=== PATIENT | female | born 1935 | race Caucasian/White ===

== ENCOUNTER 2022-02-06 16:06 | Emergency (ER) | payer MEDICARE, SELFPAY ==
--- NOTE | ~2022-02-06 | XR_ITS ---
XR hip RT 2V w AP pelvis DATE: 02/06/2022 18:12 INDICATION: Fall 2 weeks ago. Right hip pain. TECHNIQUE: AP pelvis. AP and lateral views of right hip. COMPARISON: None FINDINGS: There is diffuse osteopenia. There is degenerative disc disease at L4-5 and L5-S1. There is bony bridging across the superior aspect of the pubic symphysis. The sacroiliac joints are i ntact. No pelvic fracture or bone destruction is detected. Moderately prominent bilateral hip osteoarthritis including joint space narrowing and periarticular s purring. No fracture or dislocation, avascular necrosis or bone destruction of the right hip is detected. Iliac and femoral artery calcifications. IMPRESSION: Osteopenia Moderately prominent bilateral hip osteoarthritis No fracture or dislocation of right hip Reviewed, dictated and finalized at location B. LIANCE COUNSEL
--- NOTE | ~2022-02-06 | XR_ITS ---
XR chest 1V DATE: 02/06/2022 18:12 INDICATION: Cough, congestion, wheezing. History of hypertension, stroke TECHNIQUE: AP chest COMPARISON: None FINDINGS: Cardiomegaly. Aortic calcification. There is minimal infiltrate and/or atelectasis or scarring in the left lower lung field. No pulmonary consolidation is noted otherwise. Pulmonary vascularity appears within normal range. No significant pleural effusion or any pneumothora x is noted. There is dextroscoliosis and degenerative change of the thoracolumbar spine. Osteopenia. Status post cholecystectomy. IMPRESSION: Cardiomegaly, aortic atherosclerosis Minimal infiltrate or atelectasis at the left lung base Osteopenia Status post cholecystectomy Reviewed, dictated and finalized at location B. 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
[2022-02-06 16:17] VITALS: PULSE 91; RESP 24; TEMP 36.8; O2SAT 98
[2022-02-06 16:22] VITALS: BP 152/69
--- NOTE | 2022-02-06 16:56 | ED.EXTPRO ---
HPI - Extremity Problem General Chief complaint: Extremity Problem,Nontraumatic Stated complaint: right leg pain, fall 2 weeks ago, chest congestion Time Seen by Provider: 02/06/22 16:38 Source: patient and family Mode of arrival: ambulatory Limitations: no limitations History of Present Illness HPI Narrative: 86 years old white female brought to the emergency room by her son and daughter because of sudden onset of pain at the right hip, right thigh while trying to get inside a car. Patient had a fall 2 weeks ago, was complaining of head injury at that time, negative CT scan of the head, did not have any other injuries. Patient was doing okay, her daughter picked her up to go to get haircut and she was doing okay after finishing the haircut was trying to help her to get inside the car and started having pain at the right leg basically at the right hip and right thigh. No obvious trauma. And by the way patient been coughing and congested for the last few days. Assisting living. Related Data Allergies Allergy/AdvReac Type Severity Reaction Status Date / Time atorvastatin Allergy Itching Verified 02/06/22 18:14 chlordiazepoxide Allergy Itching Verified 02/06/22 18:14 [From Librax (with methscopolamine)] cholestyramine Allergy Itching Verified 02/06/22 18:14 clopidogrel [From Plavix] Allergy Itching Verified 02/06/22 18:14 dicyclomine Allergy Itching Verified 02/06/22 18:14 enoxaparin Allergy Headache Verified 02/06/22 18:14 fenofibrate Allergy Itching Verified 02/06/22 18:14 Latex, Natural Rubber Allergy Blister Verified 02/06/22 18:14 lidocaine Allergy Itching Verified 02/06/22 18:14 lisinopril Allergy Cough Verified 02/06/22 18:14 losartan Allergy Itching Verified 02/06/22 18:14 meloxicam Allergy Itching Verified 02/06/22 18:14 neomycin Allergy Rash Verified 02/06/22 18:14 nortriptyline [From Pamelor] Allergy Itching Verified 02/06/22 18:14 procaine Allergy Itching Verified 02/06/22 18:14 scopolamine Allergy Itching Verified 02/06/22 18:14 [From Librax (with methscopolamine)] triamcinolone Allergy Itching Verified 02/06/22 18:14 betamethasone AdvReac Itching Verified 02/06/22 18:14 Review of Systems Review of Systems: All systems reviewed & are unremarkable except as noted in HPI and below PMFSH Past Medical History Medical History Hypertension Stroke Family History Family History Father Heart attack Sibling Breast cancer Social History Social History Smoking status: Never smoker Alcohol intake: never Substance use: never Substance use type: does not use Gender identity (if verbalized by the patient): Female Spiritual care concerns: No Agree to blood products: Yes Exam Narrative: General appearance: Well-developed, well-nourished, obese, intermittent productive cough, severe hearing impairment Skin: Normal color Head: Normocephalic, nontraumatic Eyes: Clear conjunctiva ENT: Oropharynx normal, ears normal, nose normal Neck: Supple, nontender Chest and respiratory: Airway patent, no respiratory distress, no accessory muscle use Heart: Regular rate/rhythm Abdomen: Soft, nontender, no organomegaly, quiet bowel sounds Vascular: Normal peripheral pulses, normal capillary refill. Musculoskeletal: Slight limited range of motion at the right hip because of pain, mild diffuse tenderness of the right thigh anteriorly and posteriorly, no bruises, no swelling, no rash Neurologic: Alert and oriented ?3, DEPUTY PROSECUTING ATTORNEY is normal as tested, no gross motor deficit
[2022-02-06 17:17] LABS: Basophils Percent Auto 0.3 % (0.2-1.2); Eosinophils Absolute Auto 0.1 K/mm3 (0-0.3); Eosinophils Percent Auto 1.7 % (0-4.4); Hematocrit 37.7 % (37.0-47.0); Hemoglobin 12.3 g/dL (12.0-15.0); Immature Granulocyte Absolute 0.02 K/mm3 (0.00-0.031); Immature Granulocyte Percent A 0.3 % (0-0.5); Lymphocytes Absolute Auto 1.12 K/mm3 (0.9-3.2); Lymphocytes Percent Auto 14.2 % (18.3-44.2); Mean Corpuscular HGB Conc 32.6 g/dl (32-36); Mean Corpuscular Hemoglobin 28.7 pg (26-34); Mean Corpuscular Volume 88.1 fl (80-100); Monocytes Absolute Auto 0.9 K/mm3 (0.1-0.6); Monocytes Percent Auto 10.9 % (2.6-8.5); Neutrophils Absolute Auto 5.7 K/mm3 (1.3-6.7); Neutrophils Percent Auto 72.6 % (45.5-73.1); Platelet Count Result 266 k/mm3 (150-375); Red Blood Count 4.28 M/mm3 (4.2-5.4); Red Cell Distribution Width 14.1 % (11.5-14.5); White Blood Count 7.9 K/mm3 (4.5-10.0)
[2022-02-06 17:27] LABS: Potassium 3.7 mmol/L (3.4-5.0)
[2022-02-06 17:28] LABS: Alanine Aminotransferase 27 U/L (6-35); Albumin Level 4.7 g/dL (3.5-5.1); Alkaline Phosphatase 106 U/L (38-126); Anion Gap 9 mmol/L (8-16); Aspartate Amino Transferase 37 U/L (14-36); Bilirubin,Total 0.5 mg/dL (0.2-1.3); Blood Urea Nitrogen 11 mg/dL (7-17); Calcium 9.1 mg/dL (8.4-10.2); Carbon Dioxide 24 mmol/L (22-30); Chloride 104 mmol/L (98-107); Estimated CRCL calculation 69 ml/min; Estimated Glomerular Filt Rate > 60; Glucose 119 mg/dL (65-110); Sodium 137 mmol/L (137-145)
[2022-02-06 17:37] LABS: NT Pro B Type Natriuretic Pept 84 pg/mL (5-100)
[2022-02-06 17:40] LABS: Appearance Urine Clear (Clear); Bilirubin Urine Negative (Negative); Blood Urine Trace-intact (Negative); Color Urine Yellow (Yellow); Glucose Urine UA Negative (Negative); Ketones Urine Negative (Negative); Leukocyte Esterase Ur Negative LEU/UL (Negative); Nitrate Urine Negative (Negative); Protein Urine Negative (Negative); Urobilinogen Urine 0.2 mg/dL (<2.0); pH Urine 5.5 (5.0-9.0)
[2022-02-06 17:50] LABS: RBC Urine 0-2 /hpf (0-2); WBC Urine 0-3 /hpf
[2022-02-06 17:52] LABS: Add Urine Microscopic? YES
[2022-02-06 17:54] LABS: Influenza A QL RT-PCR Negative (Negative); Influenza B QL RT-PCR Negative (Negative); RSV RNA, RT-PCR Positive (Negative); SARS-CoV-2 RNA PCR Negative
[2022-02-06] MEDS: ONDANSETRON INJ 4 MG/2 ML VIAL IV PUSH (18:18)
[2022-02-06] MEDS: MORPHINE SULFATE (*CRX) 4 MG/ML INJ IV PUSH (18:19)
[2022-02-06 18:23] VITALS: PULSE 87; RESP 21
[2022-02-06] MEDS: ALBUTEROL SULFATE NEB 2.5 MG/3 ML INH 5 MG INHALATION (18:23)
[2022-02-06 18:38] LABS: Device ROOM AIR; Fractional Inspired Oxygen 21 %; HCO3 ABG 23.9 mEq/l (22.0-26.0); Modified Allen's Test Pass; Oxygen Content ABG 17.9 %vol (16.0-22.0); Oxygen Saturation ABG 99.4 % (95.0-100.0); Oxyhemoglobin 97.9 % THb (90.0-100.0); PCO2 ABG 36.7 mmHg (35.0-45.0); PO2 ABG 202.8 mmHg (80.0-100.0); Site Drawn LEFT RADIAL; Total Hemoglobin 12.7 g/dL (12.0-18.0); pH ABG 7.432 (7.350-7.450)
[2022-02-06 18:47] VITALS: PULSE 88; RESP 20
== END 2022-02-06 20:15 ==
PROVIDERS: Emergency Provider Emergency Medicine
DX: M79.18 Myalgia, other site (principal); J22 Unspecified acute lower respiratory infection; B97.4 Respiratory syncytial virus as the cause of diseases classified elsewhere; Z86.73 Personal history of transient ischemic attack (TIA), and cerebral infarction without residual deficits; Z20.822 Contact with and (suspected) exposure to COVID-19; I10 Essential (primary) hypertension; Z79.82 Long term (current) use of aspirin
CPT/HCPCS: 36415; 36600; 71045; 73502; 80053; 81001; 82805; 83880; 85025; 87040; 87637; 94640; 96374; 96375; 99284; J2270; J2405

== ENCOUNTER 2022-02-16 00:57 | Inpatient (IN) | payer MEDICARE, SELFPAY ==
[2022-02-16] VITALS (30 sets, daily range): BP systolic 131–198; BP diastolic 61–78; PULSE 91–110; RESP 17–26; TEMP 36.6–37.6; O2SAT 90–99; BMI 33.0
--- NOTE | ~2022-02-16 | XR_ITS ---
EXAMINATION: XR chest 1V portable DATE: 02/16/2022 02:06 INDICATION: Cough. TECHNIQUE: A single frontal view of the chest was obtained. COMPARISON: Chest single view 02/06/2022, CT abdomen and pelvis 02/16/2022 FINDINGS: There is a diffuse interstitial pattern in the lungs. No pleural effusion or pneumothorax. Cardiomegaly is noted. There are surgical clips in the abdomen. IMPRESSION: 1. Worsened interstitial pattern in the lungs, likely mild pulmonary edema. 2. Cardiomegaly. Reviewed, dictated and finalized at location A. RANCE ASSOCIATE
--- NOTE | ~2022-02-16 | CT_ITS ---
EXAMINATION: CT abdomen pelvis wo con DATE: 02/16/2022 02:45 INDICATION: Mid and left abdominal pain. TECHNIQUE: Computed tomography (CT) of the abdomen and pelvis was performed without intravenous contr ast. Automated exposure control and iterative reconstruction technique were employed. The dose-length product was 835.82 mGy-cm. COMPARISON: None. FINDINGS: The visualized portions of the lung bases demonstrate mild atelectasis and mild chronic trcaie g disease. Calcified left lower lobe nodules are consistent with old granulomatous disease. No pleura l effusion. Cardiomegaly is noted. No pericardial effusion. There is a moderate-sized sliding hiatal hernia. Calcifications in the liver and spleen are consistent with old granulomatous disease. There a re changes of cholecystectomy. The pancreas, adrenal glands, and kidneys are normal. There is no urol ithiasis. There is an umbilical hernia containing fat. There is diverticulosis of the colon without e vidence of diverticulitis. The appendix is not visualized. There are no dilated loops of bowel. There are no pathologically enlarged lymph nodes. There is no free intraperitoneal fluid. There are widesp read arterial calcifications with at least moderate stenosis of celiac axis origin and at least mild stenosis of superior mesenteric artery origin. There is moderate lumbar spondylosis. There are bridgi ng endplate osteophytes at multiple levels in the thoracic spine, consistent with diffuse idiopathic skeletal hyperostosis (DISH). IMPRESSION: 1. Moderate-sized sliding hiatal hernia. 2. Umbilical hernia containing fat. Reviewed, dictated and finalized at location A. E HAND
--- NOTE | ~2022-02-16 | XR_ITS ---
EXAMINATION: XR chest 1V portable Exam Date/Time: 02/18/2022 14:00 CASE MANAGERS HISTORY: Shortness of breath Comparison: 02/16/2022. RESULT: Lines, tubes, and devices: None. Lungs and pleura: Increased linear and subsegmental opacities in the left lung base. Slightly increa sed left angle blunting. Stable diffuse reticular opacities. Cardiomediastinal silhouette: Stable. Other: No acute osseous or upper abdominal finding. IMPRESSION: Worsening left basilar atelectasis/consolidation. Small left pleural effusion. Reviewed, dictated and finalized at location K. MANAGERS
--- NOTE | ~2022-02-16 | XR_ITS ---
EXAMINATION: XR abdomen/kub 1V DATE: 02/19/2022 17:32 INDICATION: Abdominal pain TECHNIQUE: A supine view of the abdomen on 2 radiographs was obtained. COMPARISON: CT dated 02/16/2022 FINDINGS: Moderate amount of gas and stool scattered throughout the colon. No dilated loops of gas-filled bowel to suggest obstruction. Cholecystectomy clips in right upper quadrant. Additional surgical clips in the left upper quadrant. Airspace opacities at bilateral lung bases which could represent atelectasis or pneumonia. Moderate degenerative skeletal changes in the spine and bilateral hip and sacroiliac j oints. IMPRESSION: 1. Moderate amount of colonic stool which could be seen with constipation. No bowel obstruction. 2. Bibasilar lung disease which could represent atelectasis or pneumonia. Reviewed, dictated and finalized at location A. SIFICATION PLANT OPERATOR IMPRESSION: 1. Moderate amount of colonic stool which could be seen with constipation. No b owel obstruction. 2. Bibasilar lung disease which could represent atelectasis or pneumonia.
--- NOTE | 2022-02-16 01:03 | ECG_ITS ---
Measurements Intervals [place] Rate: 104 P: 79 OR: 156 QRS: 35 QRSD: 83 T: 79 QT: 352 QTc: 465 Interpretive Statements SINUS TACHYCARDIA WITH OCCASIONAL SUPRAVENTRICULAR PREMATURE COMPLEXES NONSPECIFIC T-WAVE ABNORMALITY ABNORMAL RHYTHM ECG NO PREVIOUS ECG AVAILABLE FOR COMPARISON Electronically Signed On 02-16-2022 6:23:37 PRINCIPAL NETWORK ENGINEER by Felix Gao M.D.
--- NOTE | 2022-02-16 01:08 | ED.GENADULT ---
HPI - General Adult General Chief complaint: Shortness of Breath/Dyspnea Stated complaint: SOB, CP Source: RN notes reviewed History of Present Illness HPI narrative: Patient presents emergency department from home via EMS for chest pain shortness of breath. Patient states that she has been having symptoms since yesterday. States has been having a cough this been productive of yellow sputum. She has been associate with shortness of breath also states she has been having chest pain over the left lower chest. Pain is increased with movement as well as coughing states she went to her PCP today was diagnosed with pneumonia was started on a Z-Conrado which she has taken 1 dose of as it was just this morning that she was diagnosed. She denies any fevers or chills nausea or vomiting per family's present the patient's not been eating well patient does have a history of dementia Related Data Allergies Allergy/AdvReac Type Severity Reaction Status Date / Time atorvastatin Allergy Itching Verified 02/16/22 01:29 chlordiazepoxide Allergy Itching Verified 02/16/22 01:29 [From Librax (with methscopolamine)] cholestyramine Allergy Itching Verified 02/16/22 01:29 clopidogrel [From Plavix] Allergy Itching Verified 02/16/22 01:29 dicyclomine Allergy Itching Verified 02/16/22 01:29 enoxaparin Allergy Headache Verified 02/16/22 01:29 fenofibrate Allergy Itching Verified 02/16/22 01:29 Latex, Natural Rubber Allergy Blister Verified 02/16/22 01:29 lidocaine Allergy Itching Verified 02/16/22 01:29 lisinopril Allergy Cough Verified 02/16/22 01:29 losartan Allergy Itching Verified 02/16/22 01:29 meloxicam Allergy Itching Verified 02/16/22 01:29 neomycin Allergy Rash Verified 02/16/22 01:29 nortriptyline [From Pamelor] Allergy Itching Verified 02/16/22 01:29 procaine Allergy Itching Verified 02/16/22 01:29 scopolamine Allergy Itching Verified 02/16/22 01:29 [From Librax (with methscopolamine)] triamcinolone Allergy Itching Verified 02/16/22 01:29 betamethasone AdvReac Itching Verified 02/16/22 01:29 Review of Systems Review of Systems: Gen.: Denies fevers or chills ENT: Denies congestion Respiratory: Reports shortness of breath and cough CV: Reports left-sided chest pain GI: Denies abdominal pain nausea, emesis or diarrhea Musculoskeletal: Denies back pain or muscle pain Neuro: Denies numbness, tingling, weakness or focal weakness Skin: Denies rash Except as documented, all other systems reviewed and negative [facility] Past Medical History Medical History (Updated 02/16/22 @ 06:48 by Sina Andrade DO) Allergic rhinitis 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 Dementia Fracture of left shoulder (~2012) Hypertension Migraine Mixed hyperlipidemia Prurigo nodularis Surgical History Surgical History (Updated 02/16/22 @ 05:37 by Olga Lidia Askew DO) History of bladder suspension procedure History of Agustin fundoplication (~2005) History of sinus surgery History of total hysterectomy with bilateral salpingo-oophorectomy (BSO) Hx of cholecystectomy Status post cataract extraction of both eyes with insertion of intraocular lens (~2013) Family History Family History Father Heart attack Sibling Breast cancer Social History Social History Smoking status: Never smoker Alcohol intake: never Substance use: never Substance use type: does not use Gender identity (if verbalized by the patient): Female Spiritual care concerns: No Agree to blood products: Yes Exam Narrative: APPEARANCE: No acute distress, nontoxic, resting in bed EYES: EOMI HEENT: Normocephalic, atraumatic, OMM RESPIRATORY: No respiratory distress crackles in the left lung base, no wheezing CARDIOVASCULAR: Regular rate and rhythm without murmurs rubs or gallops. ABDOMINAL: Sof
[2022-02-16 01:26] LABS: Basophils Percent Auto 0.3 % (0.2-1.2); Eosinophils Percent Auto 0.1 % (0-4.4); Hematocrit 36.2 % (37.0-47.0); Immature Granulocyte Absolute 0.12 K/mm3 (0.00-0.031); Immature Granulocyte Percent A 0.9 % (0-0.5); Lymphocytes Percent Auto 7.4 % (18.3-44.2); Mean Corpuscular HGB Conc 33.1 g/dl (32-36); Mean Corpuscular Hemoglobin 28.5 pg (26-34); Mean Platelet Volume 9.7 fl (7.4-10.4); Neutrophils Absolute Auto 11.5 K/mm3 (1.3-6.7); Neutrophils Percent Auto 84.3 % (45.5-73.1); Platelet Count Result 438 k/mm3 (150-375); Red Blood Count 4.21 M/mm3 (4.2-5.4); Red Cell Distribution Width 13.7 % (11.5-14.5); White Blood Count 13.6 K/mm3 (4.5-10.0)
[2022-02-16 01:35] LABS: Alanine Aminotransferase 36 U/L (6-35); Albumin Level 4.5 g/dL (3.5-5.1); Alkaline Phosphatase 98 U/L (38-126); Anion Gap 10 mmol/L (8-16); Aspartate Amino Transferase 36 U/L (14-36); Bilirubin,Total 0.6 mg/dL (0.2-1.3); Blood Urea Nitrogen 14 mg/dL (7-17); Calcium 9.3 mg/dL (8.4-10.2); Carbon Dioxide 25 mmol/L (22-30); Chloride 105 mmol/L (98-107); Estimated Glomerular Filt Rate > 60; Glucose 143 mg/dL (65-110); Potassium 3.4 mmol/L (3.4-5.0); Sodium 140 mmol/L (137-145)
[2022-02-16 01:37] LABS: INR 1.1; Partial Thromboplastin Time 29.2 SECONDS (22.3-36.8); Prothrombin Time 13.7 Seconds (11.1-14.7)
[2022-02-16 01:47] LABS: NT Pro B Type Natriuretic Pept 234 pg/mL (5-100); Troponin I < 0.012 ng/mL (0.000-0.034)
[2022-02-16 02:01] LABS: Influenza A QL RT-PCR Negative (Negative); Influenza B QL RT-PCR Negative (Negative); RSV RNA, RT-PCR Positive (Negative); SARS-CoV-2 RNA PCR Negative
--- NOTE | 2022-02-16 03:23 | PC.NURSE ---
Report received from KERRY Ramos. Assumed care of patient at this time.
[2022-02-16] MEDS: ALBUTEROL SULFATE NEB 2.5 MG/3 ML INH 5 MG INHALATION ×4 (03:45→20:21)
[2022-02-16 04:21] LABS: Lactic Acid Reflex 1.1 mmol/L (0.7-2.0)
[2022-02-16] MEDS: MORPHINE SULFATE (*CRX) 2 MG/ML INJ 1 MG IV PUSH (04:57)
--- NOTE | 2022-02-16 05:25 | PM.IMHP ---
H&P: HPI History of Present Illness Date/Time: 02/16/22 05:25 Chief Complaint: chest pain and abdominal pain Narrative: 87-year-old female past medical history of essential hypertension, allergic rhinitis, hyperlipidemia and recent diagnosis of RSV who presented to the ER from assisted living due to complaints of chest pain and abdominal pain. The patient indicates her left chest was hurting but when palpated the patient's pain seeing some be more in the left upper abdomen. Although the patient does cry out when staff touches her abdomen she also grabs at staff and shoves them away if they touch her chest or neck. Although the patient is alert oriented to place name and name of the current president she initially stated the wrong month and then corrected to the right month when she was told that she stated the wrong month but thought the year was 2001. Dust the patient's daughter provided the majority of the history. The family felt the patient was having more shortness of breath starting yesterday. She had also complained of chest pain over the left lower chest that was increased with movement. She stated that the pain was worse with every little bump. She has also been having some cough. She was evaluated by her primary care physician today was diagnosed with pneumonia and started on a Z-Conrado. She has taken 1 dose of the azithromycin before coming in. She has not had any fevers or chills nausea or vomiting. She has had overall poor oral intake for the last week. When the patient was brought to the ER on the she was having pain in her right hip leg and thigh. On that day she had 3 below out diarrheal stools. The daughter reports that is not completely unusual for the patient to have episodes of diarrhea and bowel incontinence but the episodes have decreased since the patient moved to assisted living. The patient actually has not had any bowel movements for the last couple of days. She has chronic bladder incontinence. The patient is writhing around in bed and stating that she is done. Besides the 1 dose of antibiotic she received on the she had not been on a antibiotics previously. 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 Dementia Fracture of left shoulder (~2012) Hypertension Migraine Mixed hyperlipidemia Prurigo nodularis Surgical History Surgical History (Updated 02/16/22 @ 05:37 by Olga Lidia Askew DO) History of bladder suspension procedure History of Agustin fundoplication (~2005) History of sinus surgery History of total hysterectomy with bilateral salpingo-oophorectomy (BSO) Hx of cholecystectomy Status post cataract extraction of both eyes with insertion of intraocular lens (~2013) Family History Family History Father Heart attack Sibling Breast cancer Social History Social History Smoking status: Never smoker Alcohol intake: never Substance use: never Substance use type: does not use Gender identity (if verbalized by the patient): Female Spiritual care concerns: No Agree to blood products: Yes Meds Home Medications and Allergies Home Medications Medication Instructions Recorded Confirmed Type albuterol sulfate 90 mcg/actuation 1 inh inhalation QID PRN Allergy 03/07/19 Rx aerosol inhaler Symptoms #1 g amlodipine 5 mg tablet 5 mg PO DAILY #30 tabs 03/07/19 Rx aspirin 81 mg chewable tablet 81 mg PO DAILY #100 tabs 03/07/19 02/22/19 Rx cetirizine 10 mg capsule (Zyrtec) 10 mg PO BID allergies #60 caps 03/07/19 Rx cholecalciferol (vitamin D3) 50 50 mcg PO DAILY #30 caps 03/07/19 Rx mcg (2,000 unit) capsule f
[2022-02-16] MEDS: MORPHINE SULFATE (*CRX) 4 MG/ML INJ IV PUSH ×3 (06:33→20:26)
--- NOTE | 2022-02-16 07:54 | PC.NURSE ---
clear liquid breakfast tray ordered
--- NOTE | 2022-02-16 08:12 | PC.NURSE ---
Family states they will run home to obtain a list of home medications.
[2022-02-16] MEDS: SODIUM CHLORIDE 0.9% IV 1,000 ML 999 ML IV CONT (08:47)
[2022-02-16 09:04] LABS: Troponin I 0.019 ng/mL (0.000-0.034)
[2022-02-16 09:05] LABS: D Dimer 1.31 ug/mL (<0.48)
[2022-02-16] MEDS: IPRATROPIUM BR 0.02% INH SOLN 0.5 MG/2.5 ML VIAL INHALATION ×3 (09:50→20:21)
[2022-02-16] MEDS: SODIUM CHLORIDE 0.9% IV 1,000 ML 100 ML IV CONT ×2 (10:25→15:56)
[2022-02-16 11:30] LABS: Troponin I 0.023 ng/mL (0.000-0.034)
--- NOTE | 2022-02-16 11:50 | PC.NURSE ---
Clear liquid diet lunch tray ordered
--- NOTE | 2022-02-16 15:20 | ADMGEN ---
This patient, Rosa Angela, was admitted to Medical Room 344-01. Patient/family oriented to hospital policies and general routines including ID bracelet, bed and alarms, visiting hours, pain management, procedures, bathroom and other care routines, personal items, smoking policy, room service/diet, and visiting hours. Information on how to activate the Rapid Response Team has been discussed. Patient/Family are encouraged to report perceived risks to care and to ask questions if they do not understand what they are told or what they should do.
--- NOTE | 2022-02-16 17:59 | PM.IMPN ---
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 She has been afebrile. Blood cultures are pending. Sepsis is due to pneumonia with possible pancolitis. Granted the patient's left lower chest and abdominal pain could be due to pneumonia but given the patient's abdominal distension is CT findings concerning for pancolitis this is also a concern. Patient has been placed on Zosyn for both GI and coverage for pneumonia. Will give 1 L fluid bolus and will place patient on maintenance fluids at 100 mL an hour given her decreased oral intake and dry mucous membranes. Family does report that the patient has lower extremity edema and given her tachycardia and the location of her pain certainly pulmonary embolism as within trauma possibility for differential. Will check a D-dimer. We would of the in a CTA of the chest however the patient thinks that she has a allergy to IV contrast although it is not on her allergy list. While I was in the ER the patient's oxygen saturations were dropping into the 90s but would come back up to the mid 90s. I was worried with giving the patient larger dose of morphine than what was given in the ER 1 mg. However 1 mg of morphine did nothing for the patient. I did order for 4 mg of morphine and to monitor for response. I encouraged the patient's daughter to discuss code status with her other siblings given the patient's advanced age. The bleed the patient is acting reminds me of someone who may be developing terminal restlessness. The patient does not having marked lactic acidosis that was suggest ischemic colitis pancolitis but is still within the differential. Overall patient has a guarded prognosis. Hold off on SCDs given the patient's new lower extremity swelling that the daughter reported. Will wait D-dimer results. I would like to avoid therapeutic Lovenox without a definitive reason to provide therapeutic Lovenox in someone of this patient's age group. 02/16/2022 interval history: currently patient is in pain and poor historian still complains of pain and abdominal but denies any nausea or vomiting fever or chills patient CT scan of the abdomen did not show any significant pathology attribute to her pain however patient does have a large sliding hiatal hernia and abdomen is protruband, patient's family is quite concerned about the patient I spoke with the patient daughters and son and give them update, will continue the present management with Zosyn and continue to monitor further recommendation to follow. Patient has been admitted as observation status. Subjective Date/time seen: 02/16/22 17:59 ?chest pain and abdominal pain HPI-Narrative: 87-year-old female past medical history of essential hypertension, allergic rhinitis, hyperlipidemia and recent diagnosis of RSV who presented to the ER from assisted living due to complaints of chest pain and abdominal pain.? The patient indicates her left chest was hurting but when palpated the patient's pain seeing some be more in the left upper abdomen.? Although the patient does cry out when staff touches her abdomen she also grabs at staff and sh
[2022-02-17] VITALS (18 sets, daily range): BP systolic 130–180; BP diastolic 63–70; PULSE 77–177; RESP 20–22; TEMP 36.2–36.7; O2SAT 92–99
[2022-02-17] MEDS: MORPHINE SULFATE (*CRX) 4 MG/ML INJ IV PUSH ×3 (00:17→19:41)
[2022-02-17] MEDS: ALBUTEROL SULFATE NEB 2.5 MG/3 ML INH 5 MG INHALATION ×4 (02:11→20:09)
[2022-02-17] MEDS: IPRATROPIUM BR 0.02% INH SOLN 0.5 MG/2.5 ML VIAL INHALATION ×4 (02:11→20:09)
[2022-02-17] MEDS: SODIUM CHLORIDE 0.9% IV 1,000 ML 100 ML IV CONT (02:35)
[2022-02-17 05:55] LABS: Basophils Absolute Auto 0.1 K/mm3 (0.0-0.1); Basophils Percent Auto 0.3 % (0.2-1.2); Eosinophils Absolute Auto 0.1 K/mm3 (0-0.3); Eosinophils Percent Auto 0.7 % (0-4.4); Hematocrit 34.4 % (37.0-47.0); Hemoglobin 10.9 g/dL (12.0-15.0); Immature Granulocyte Percent A 0.6 % (0-0.5); Lymphocytes Absolute Auto 1.32 K/mm3 (0.9-3.2); Mean Corpuscular HGB Conc 31.7 g/dl (32-36); Mean Corpuscular Hemoglobin 27.9 pg (26-34); Mean Corpuscular Volume 88.2 fl (80-100); Mean Platelet Volume 9.7 fl (7.4-10.4); Monocytes Percent Auto 5.7 % (2.6-8.5); Neutrophils Percent Auto 84.7 % (45.5-73.1); Platelet Count Result 369 k/mm3 (150-375); Red Cell Distribution Width 13.7 % (11.5-14.5); White Blood Count 16.5 K/mm3 (4.5-10.0)
[2022-02-17 06:20] LABS: Alanine Aminotransferase 30 U/L (6-35); Albumin Level 3.6 g/dL (3.5-5.1); Alkaline Phosphatase 79 U/L (38-126); Anion Gap 7 mmol/L (8-16); Aspartate Amino Transferase 38 U/L (14-36); Bilirubin,Total 0.9 mg/dL (0.2-1.3); Blood Urea Nitrogen 6 mg/dL (7-17); Calcium 8.3 mg/dL (8.4-10.2); Carbon Dioxide 26 mmol/L (22-30); Chloride 103 mmol/L (98-107); Estimated CRCL calculation 83 ml/min; Estimated Glomerular Filt Rate > 60; Glucose 125 mg/dL (65-110); Potassium 3.3 mmol/L (3.4-5.0); Sodium 136 mmol/L (137-145)
[2022-02-17] MEDS: POTASSIUM CHLORIDE 20 MEQ PACKET (FOR LIQUID) 40 MEQ PO (09:49)
[2022-02-17] MEDS: PANTOPRAZOLE 40 MG TABLET PO (09:51)
[2022-02-17] MEDS: LORATADINE 10 MG TABLET PO (09:51)
[2022-02-17] MEDS: amLODIPine BESYLATE 5 MG TABLET 10 MG PO (09:51)
[2022-02-17] MEDS: CHOLECALCIFEROL 1,000 UNITS TABLET 2000 UNITS PO (09:51)
[2022-02-17] MEDS: THERAPEUTIC MULTIVITAMINS/MINERALS TAB (*BKC) 1 TABLET PO (09:51)
[2022-02-17] MEDS: ASPIRIN 81 MG CHEWABLE TABLET PO (09:51)
[2022-02-17] MEDS: TICAGRELOR 90 MG TABLET PO ×2 (09:52→21:16)
--- NOTE | 2022-02-17 16:40 | PM.IMPN ---
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 She has been afebrile. Blood cultures are pending. Sepsis is due to pneumonia with possible pancolitis. Granted the patient's left lower chest and abdominal pain could be due to pneumonia but given the patient's abdominal distension is CT findings concerning for pancolitis this is also a concern. Patient has been placed on Zosyn for both GI and coverage for pneumonia. Will give 1 L fluid bolus and will place patient on maintenance fluids at 100 mL an hour given her decreased oral intake and dry mucous membranes. Family does report that the patient has lower extremity edema and given her tachycardia and the location of her pain certainly pulmonary embolism as within trauma possibility for differential. Will check a D-dimer. We would of the in a CTA of the chest however the patient thinks that she has a allergy to IV contrast although it is not on her allergy list. While I was in the ER the patient's oxygen saturations were dropping into the 90s but would come back up to the mid 90s. I was worried with giving the patient larger dose of morphine than what was given in the ER 1 mg. However 1 mg of morphine did nothing for the patient. I did order for 4 mg of morphine and to monitor for response. I encouraged the patient's daughter to discuss code status with her other siblings given the patient's advanced age. The bleed the patient is acting reminds me of someone who may be developing terminal restlessness. The patient does not having marked lactic acidosis that was suggest ischemic colitis pancolitis but is still within the differential. Overall patient has a guarded prognosis. Hold off on SCDs given the patient's new lower extremity swelling that the daughter reported. Will wait D-dimer results. I would like to avoid therapeutic Lovenox without a definitive reason to provide therapeutic Lovenox in someone of this patient's age group. 02/17/2022 interval history: currently patient is in pain and poor historian still complains of pain and abdominal but denies any nausea or vomiting fever or chills patient CT scan of the abdomen did not show any significant pathology attribute to her pain however patient does have a large sliding hiatal hernia and abdomen is protruband, a today patient's son is present in room, patient states she has not had a bowel more in several days, will Colace and MiraLax, patient blood pressure is running high currently patient is taking amlodipine 10 mg q.day will add hydrochlorothiazide 25 mg q.day and monitor, will continue the present management with Zosyn and continue to monitor further recommendation to follow. Patient has been admitted as observation status. Subjective Date/time seen: 02/17/22 16:40 02/17/2022 interval history: currently patient is in pain and poor historian still complains of pain and abdominal but denies any nausea or vomiting fever or chills patient CT scan of the abdomen did not show any significant pathology attribute to her pain however patient does have a large sliding hiatal hernia and abdomen is protruband, a tod
[2022-02-17] MEDS: hydroCHLOROthiazide 12.5 MG CAPSULE PO (18:05)
[2022-02-17] MEDS: ENOXAPARIN 40 MG/0.4 ML SYRINGE SUB-Q (18:05)
--- NOTE | 2022-02-17 20:39 | ECG_ITS ---
Measurements Intervals [place] Rate: 159 P: [place]: 0 QRS: 26 QRSD: 86 T: 0 QT: 213 QTc: 346 Interpretive Statements ATRIAL FIBRILLATION WITH RAPID VENTRICULAR RESPONSE NONSPECIFIC ST & T-WAVE ABNORMALITY ABNORMAL RHYTHM ECG COMPARED TO ECG 02/16/2022 01:05:36 ATRIAL FIBRILLATION NOW PRESENT Electronically Signed On 02-18-2022 13:17:48 WELDING EQUIPMENT SALES REPRESENTATIVE by Cruz Fontanez M.D.
--- NOTE | 2022-02-17 20:52 | PCRCNOTE ---
called a rapid response do to increased HR after neb
[2022-02-17] MEDS: dilTIAZem HCl INJ 25 MG/5 ML VIAL 10 MG IV PUSH (20:54)
[2022-02-17] MEDS: MELATONIN 5 MG TABLET 10 MG PO (21:15)
[2022-02-17] MEDS: MONTELUKAST SODIUM 10 MG TABLET PO (21:16)
[2022-02-17] MEDS: dilTIAZem HCL 30 MG TABLET PO (21:16)
[2022-02-17] MEDS: DOCUSATE SODIUM 100 MG CAPSULE PO (21:16)
[2022-02-17] MEDS: SIMVASTATIN 20 MG TABLET PO (21:16)
[2022-02-17] MEDS: FUROSEMIDE INJ 40 MG/4 ML VIAL IV PUSH (22:23)
[2022-02-17] MEDS: dilTIAZem HCl INJ 25 MG/5 ML VIAL 20 MG IV PUSH (22:23)
--- NOTE | 2022-02-17 23:39 | PC.NURSE ---
Heart rate remains elevated Dr White aware and ordered pt to be transferred to IMU. Pt son Manuel called and notified of transfer and he is aware of HR issues.
[2022-02-18] VITALS (24 sets, daily range): BP systolic 111–166; BP diastolic 53–96; PULSE 78–164; RESP 16–24; TEMP 36.4–36.9; O2SAT 92–97
--- NOTE | 2022-02-18 | ECHO_ITS ---
Patient Info Name: Rosa Angela Age: 87 years : 1935 Gender: Female Ht: 62 in Wt: 180 lbs BSA: 1.92 m2 HR: 98 bpm BP: 117 / 82 mmHg Technical Quality: Fair Exam Date: 02/18/2022 2:07 PM Exam Location: [facility] Patient Status: Inpatient Admit Date: 02/16/2022 Staff Ordering Physician: Nora White MD Senior Microstrategy Developer: Jenny Arellano RCS Attending Provider: Compa Lawson MD Referring Physician: Cindy ARORA; Exam Type: CA echo doppler color flow Study Info Indications - AFIB Complete two-dimensional, color flow and Doppler transthoracic echocardiogram is performed. Summary 1. Complete two-dimensional, color flow and Doppler transthoracic echocardiogram is performed. 2. Left ventricular chamber dimension is normal. 3. Left ventricular systolic function is normal, estimated at 65-70%. 4. The left ventricular diastolic function is grade I diastolic dysfunction. 5. E/e' 16 is elevated. 6. Left atrial chamber dimension is mildly enlarged. 7. There is moderate aortic valve sclerosis. 8. There is mild aortic valve stenosis with a peak velocity of 251 cm/s, mean gradient of 17 mmHg, and aortic valve area of 1.5 cm2. 9. The mitral valve has moderately calcified annulus. Left Ventricle E/e' 16 is elevated. Left ventricular chamber dimension is normal. Left ventricular systolic function is normal, estimated at 65-70%. The left ventricular diastolic function is grade I diastolic dysfunction. Right Ventricle Right ventricular chamber dimension is normal. Right ventricular systolic function is normal. Left Atria Left atrial chamber dimension is mildly enlarged. Right Atria Right atrial chamber dimension is normal. Aortic Valve The aortic valve is probable trileaflet. There is moderate aortic valve sclerosis. There is mild aortic valve stenosis with a peak velocity of 251 cm/s, mean gradient of 17 mmHg, and aortic valve area of 1.5 cm2. There is no aortic valve regurgitation. Pulmonic Valve There is no pulmonic regurgitation. Mitral Valve The mitral valve has moderately calcified annulus. There is no mitral valve stenosis. There is no mitral valve regurgitation. Tricuspid Valve There is no tricuspid valve regurgitation. Pericardium/Pleural There is no pericardial effusion. Inferior Vena Cava Normal inferior vena cava with >50% collapse upon inspiration consistent with normal right atrial pressure, 5 mmHg. Aorta The aortic root size at the sinus of Valsalva is normal. Left Ventricular Outflow Tract Name Value Normal LVOT 2D LVOT Diameter 2.0 cm LVOT Doppler LVOT Peak Gradient 6 mmHg LVOT Mean Gradient 4 mmHg LVOT VTI 21 cm LVOT VTI/AV VTI Ratio 0.5 LVOT Stroke Volume 70 ml LVOT CO 18.2 l/min LVOT CI 9.5 l/min/m2 Pulmonic Valve Name
[2022-02-18] MEDS: MORPHINE SULFATE (*CRX) 4 MG/ML INJ IV PUSH (00:01)
--- NOTE | 2022-02-18 00:23 | PC.NURSE ---
Patient was transferred to room 200. Report called to Ritika PAYNE. Patient left unit at 0015 with all belongings.
[2022-02-18] MEDS: dilTIAZem 100 MG/100 ML 100 MG/100 ML BAG IV CONT ×2 (00:35→11:14)
--- NOTE | 2022-02-18 01:07 | PC.NURSE ---
This patient, Rosa Angela, was received from [facility] on 02/18/22 at 0008. Patient/family oriented to unit policies and routines
--- NOTE | 2022-02-18 01:09 | PCRCNOTE ---
neb held do to rapid heart rate
--- NOTE | 2022-02-18 05:02 | P.PNCROSS_ITS ---
Event Note Event Note Event Note: Event Note: ?rapid response was called to the patient's room after her heart rate was 150- 100 and 60s ?objective:? Blood pressure 160/90, heart rate 160, ?subjective:? No chest pain ?general:? Patient laying in bed in no acute distress ?HEENT:? Atraumatic normocephalic PERRLA EOM intact no JVD neck supple ?respiratory: clear to auscultation bilaterally, no wheezes rhonchi or crackles ?cardiovascular irregular rate and rhythm, tachycardia. ?abdomen:? Is distended, soft nontender no hepatosplenomegaly. ?extremities:? No edema ?central nervous system:? Awake alert move all 4 limbs , purposely ?skin: intact ?ASSESSMENT AND PLAN: 1- atrial fibrillation with rapid ventricular response:? Transferred to IMU will start diltiazem drip echocardiogram in a.m. cardiology consult in a.m. will start anticoagulation This dictation may have been done utilizing a voice recognition system.? Attempts have been made to correct errors. However, there may be uncorrected grammatical, spelling, and recognition errors present. Report Initialized date/time:? Nora White MD? 02/18/22 / [id number] Electronically signed by:?? Nora White MD? 02/18/22 [id number]
[2022-02-18] MEDS: ENOXAPARIN 80 MG/0.8 ML SYRINGE SUB-Q (06:25)
[2022-02-18] MEDS: IPRATROPIUM BR 0.02% INH SOLN 0.5 MG/2.5 ML VIAL INHALATION ×3 (08:16→22:10)
[2022-02-18] MEDS: DOCUSATE SODIUM 100 MG CAPSULE PO ×2 (09:04→20:57)
[2022-02-18] MEDS: CHOLECALCIFEROL 1,000 UNITS TABLET 2000 UNITS PO (09:04)
[2022-02-18] MEDS: LORATADINE 10 MG TABLET PO (09:04)
[2022-02-18] MEDS: amLODIPine BESYLATE 5 MG TABLET 10 MG PO (09:04)
[2022-02-18] MEDS: ASPIRIN 81 MG CHEWABLE TABLET PO (09:04)
[2022-02-18] MEDS: hydroCHLOROthiazide 12.5 MG CAPSULE PO ×2 (09:04→17:19)
[2022-02-18] MEDS: ENOXAPARIN 40 MG/0.4 ML SYRINGE SUB-Q (09:06)
[2022-02-18] MEDS: PANTOPRAZOLE 40 MG TABLET PO (09:07)
[2022-02-18] MEDS: TICAGRELOR 90 MG TABLET PO ×2 (09:07→20:58)
[2022-02-18] MEDS: THERAPEUTIC MULTIVITAMINS/MINERALS TAB (*BKC) 1 TABLET PO (09:07)
--- NOTE | 2022-02-18 13:46 | ECG_ITS ---
Measurements Intervals [place] Rate: 86 P: 64 ME: 165 QRS: 2 QRSD: 86 T: 122 QT: 290 QTc: 347 Interpretive Statements SINUS RHYTHM WITH OCCASIONAL VENTRICULAR PREMATURE COMPLEXES NONSPECIFIC T-WAVE ABNORMALITY COMPARED TO ECG 02/17/2022 20:42:33 SINUS RHYTHM has been restored Electronically Signed On 02-18-2022 15:49:20 SUPERVISOR [employer]ANT by Jackie Rust M.D.
--- NOTE | 2022-02-18 13:48 | PM.IMPN ---
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 She has been afebrile. Blood cultures are pending. Sepsis is due to pneumonia with possible pancolitis. Granted the patient's left lower chest and abdominal pain could be due to pneumonia but given the patient's abdominal distension is CT findings concerning for pancolitis this is also a concern. Patient has been placed on Zosyn for both GI and coverage for pneumonia. Will give 1 L fluid bolus and will place patient on maintenance fluids at 100 mL an hour given her decreased oral intake and dry mucous membranes. Family does report that the patient has lower extremity edema and given her tachycardia and the location of her pain certainly pulmonary embolism as within trauma possibility for differential. Will check a D-dimer. We would of the in a CTA of the chest however the patient thinks that she has a allergy to IV contrast although it is not on her allergy list. While I was in the ER the patient's oxygen saturations were dropping into the 90s but would come back up to the mid 90s. I was worried with giving the patient larger dose of morphine than what was given in the ER 1 mg. However 1 mg of morphine did nothing for the patient. I did order for 4 mg of morphine and to monitor for response. I encouraged the patient's daughter to discuss code status with her other siblings given the patient's advanced age. The bleed the patient is acting reminds me of someone who may be developing terminal restlessness. The patient does not having marked lactic acidosis that was suggest ischemic colitis pancolitis but is still within the differential. Overall patient has a guarded prognosis. Hold off on SCDs given the patient's new lower extremity swelling that the daughter reported. Will wait D-dimer results. I would like to avoid therapeutic Lovenox without a definitive reason to provide therapeutic Lovenox in someone of this patient's age group. 02/17/2022 interval history: currently patient is in pain and poor historian still complains of pain and abdominal but denies any nausea or vomiting fever or chills patient CT scan of the abdomen did not show any significant pathology attribute to her pain however patient does have a large sliding hiatal hernia and abdomen is protruband, a today patient's son is present in room, patient states she has not had a bowel more in several days, will Colace and MiraLax, patient blood pressure is running high currently patient is taking amlodipine 10 mg q.day will add hydrochlorothiazide 25 mg q.day and monitor, will continue the present management with Zosyn and continue to monitor further recommendation to follow. 02/18/2022: Sepsis RSV pneumonia Pancolitis AFib with RVR 02/17/2022 converted back to sinus rhythm already Hypoxic respiratory failure needing nasal cannula oxygen supplementation Constipation Large sliding hiatal hernia Hypertension History of stroke 2019 Switched to oral Cardizem on Lovenox subQ also on aspirin and Brilinta if need chronic anticoagulation will need to stop 1 of the antiplatelet. Hyperlipidemia on simvastatin Rechec
[2022-02-18 14:32] LABS: Basophils Percent Auto 0.2 % (0.2-1.2); Eosinophils Absolute Auto 0.1 K/mm3 (0-0.3); Eosinophils Percent Auto 0.3 % (0-4.4); Hematocrit 34.3 % (37.0-47.0); Hemoglobin 11.4 g/dL (12.0-15.0); Immature Granulocyte Absolute 0.31 K/mm3 (0.00-0.031); Immature Granulocyte Percent A 1.7 % (0-0.5); Lymphocytes Absolute Auto 1.06 K/mm3 (0.9-3.2); Lymphocytes Percent Auto 5.9 % (18.3-44.2); Mean Corpuscular HGB Conc 33.2 g/dl (32-36); Mean Corpuscular Hemoglobin 27.9 pg (26-34); Mean Corpuscular Volume 84.1 fl (80-100); Mean Platelet Volume 9.7 fl (7.4-10.4); Monocytes Absolute Auto 1.1 K/mm3 (0.1-0.6); Monocytes Percent Auto 6.2 % (2.6-8.5); Neutrophils Absolute Auto 15.5 K/mm3 (1.3-6.7); Neutrophils Percent Auto 85.7 % (45.5-73.1); Platelet Count Result 411 k/mm3 (150-375); Red Blood Count 4.08 M/mm3 (4.2-5.4); Red Cell Distribution Width 13.4 % (11.5-14.5)
[2022-02-18 15:08] LABS: Alanine Aminotransferase 34 U/L (6-35); Albumin Level 3.9 g/dL (3.5-5.1); Alkaline Phosphatase 84 U/L (38-126); Anion Gap 10 mmol/L (8-16); Aspartate Amino Transferase 43 U/L (14-36); Bilirubin,Total 1.1 mg/dL (0.2-1.3); Blood Urea Nitrogen 9 mg/dL (7-17); Calcium 8.6 mg/dL (8.4-10.2); Carbon Dioxide 27 mmol/L (22-30); Chloride 96 mmol/L (98-107); Estimated CRCL calculation 68 ml/min; Estimated Glomerular Filt Rate > 60; Glucose 182 mg/dL (65-110); Magnesium 1.9 mg/dL (1.6-2.3); Potassium 2.7 mmol/L (3.4-5.0); Sodium 133 mmol/L (137-145)
[2022-02-18] MEDS: POTASSIUM CHLORIDE 20 MEQ TABLET 40 MEQ PO ×2 (17:19→20:58)
[2022-02-18] MEDS: MELATONIN 5 MG TABLET 10 MG PO (20:57)
[2022-02-18] MEDS: SIMVASTATIN 20 MG TABLET PO (20:57)
[2022-02-18] MEDS: MONTELUKAST SODIUM 10 MG TABLET PO (20:58)
[2022-02-19] VITALS (21 sets, daily range): BP systolic 131–175; BP diastolic 45–80; PULSE 76–106; RESP 12–22; TEMP 36.3–37.2; O2SAT 93–97
[2022-02-19] MEDS: MORPHINE SULFATE (*CRX) 4 MG/ML INJ IV PUSH ×3 (00:33→15:23)
[2022-02-19 03:55] LABS: Basophils Percent Auto 0.2 % (0.2-1.2); Eosinophils Absolute Auto 0.2 K/mm3 (0-0.3); Eosinophils Percent Auto 0.9 % (0-4.4); Hematocrit 34.1 % (37.0-47.0); Hemoglobin 11.4 g/dL (12.0-15.0); Immature Granulocyte Absolute 0.09 K/mm3 (0.00-0.031); Immature Granulocyte Percent A 0.5 % (0-0.5); Lymphocytes Absolute Auto 1.41 K/mm3 (0.9-3.2); Lymphocytes Percent Auto 8.2 % (18.3-44.2); Mean Corpuscular HGB Conc 33.4 g/dl (32-36); Mean Corpuscular Hemoglobin 28.1 pg (26-34); Mean Corpuscular Volume 84.2 fl (80-100); Mean Platelet Volume 9.8 fl (7.4-10.4); Monocytes Absolute Auto 1.2 K/mm3 (0.1-0.6); Monocytes Percent Auto 7.2 % (2.6-8.5); Neutrophils Absolute Auto 14.2 K/mm3 (1.3-6.7); Platelet Count Result 432 k/mm3 (150-375); Red Blood Count 4.05 M/mm3 (4.2-5.4); Red Cell Distribution Width 13.5 % (11.5-14.5); White Blood Count 17.2 K/mm3 (4.5-10.0)
[2022-02-19 04:44] LABS: Alanine Aminotransferase 38 U/L (6-35); Albumin Level 3.9 g/dL (3.5-5.1); Alkaline Phosphatase 85 U/L (38-126); Anion Gap 9 mmol/L (8-16); Aspartate Amino Transferase 42 U/L (14-36); Bilirubin,Total 1.2 mg/dL (0.2-1.3); Blood Urea Nitrogen 8 mg/dL (7-17); Calcium 8.9 mg/dL (8.4-10.2); Carbon Dioxide 27 mmol/L (22-30); Chloride 99 mmol/L (98-107); Estimated CRCL calculation 68 ml/min; Estimated Glomerular Filt Rate > 60; Glucose 139 mg/dL (65-110); Magnesium 2.1 mg/dL (1.6-2.3); Potassium 3.2 mmol/L (3.4-5.0); Sodium 135 mmol/L (137-145)
[2022-02-19] MEDS: ENOXAPARIN 80 MG/0.8 ML SYRINGE SUB-Q (05:36)
[2022-02-19] MEDS: IPRATROPIUM BR 0.02% INH SOLN 0.5 MG/2.5 ML VIAL INHALATION ×3 (09:22→20:29)
[2022-02-19] MEDS: CHOLECALCIFEROL 1,000 UNITS TABLET 2000 UNITS PO (09:29)
[2022-02-19] MEDS: hydroCHLOROthiazide 12.5 MG CAPSULE PO ×2 (09:29→17:28)
[2022-02-19] MEDS: ASPIRIN 81 MG CHEWABLE TABLET PO (09:29)
[2022-02-19] MEDS: DOCUSATE SODIUM 100 MG CAPSULE PO ×2 (09:29→20:44)
[2022-02-19] MEDS: amLODIPine BESYLATE 5 MG TABLET 10 MG PO (09:30)
[2022-02-19] MEDS: THERAPEUTIC MULTIVITAMINS/MINERALS TAB (*BKC) 1 TABLET PO (09:30)
[2022-02-19] MEDS: PANTOPRAZOLE 40 MG TABLET PO (09:30)
[2022-02-19] MEDS: TICAGRELOR 90 MG TABLET PO ×2 (09:30→20:44)
[2022-02-19] MEDS: POTASSIUM CHLORIDE 20 MEQ TABLET 40 MEQ PO (09:33)
[2022-02-19] MEDS: LORATADINE 10 MG TABLET PO (09:33)
[2022-02-19] MEDS: SENNOSIDES 8.6 MG TABLET PO (11:30)
--- NOTE | 2022-02-19 16:17 | PM.IMPN ---
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 on cardizem oral now. off cardizem gtt. Hypoxic respiratory failure needing nasal cannula oxygen supplementation Constipation no bm since past 10 days: will give suppository. on colace and senna already. check xry kub. low back pain: will get xray. morphine iv prn. tylneol prn. Large sliding hiatal hernia Hypertension History of stroke 2019 Switched to oral Cardizem on Lovenox subQ also on aspirin and Brilinta if need chronic anticoagulation will need to stop 1 of the antiplatelet. Hyperlipidemia on simvastatin Subjective Date/time seen: 02/19/22 16:17 Interval history: Overnight events noted. Went into AFib with RVR. Currently on Cardizem drip rate control looks sinus with PAC on telemetry still have shortness of breath on exertion 02/19/2022: no overnight events. patient reports in low back pain. has not had bowel movement since 10 days. Review of Systems Review of Systems: All systems reviewed & are unremarkable except as noted in HPI and below Exam Narrative: moderately obese not in acute distress Patient is comfortable, NAD HEENT: eyes are clear and none icteric LUNGS: Coarse breath sound mild end-expiratory wheezes HEART: RR S1S2 telemetry sinus with PACs ABD: BS+, Soft and nontender Lower extremities: no edema SKIN: nonjaundiced Neuro: grossly intact. Objective Data Vital Signs Vital Signs: Vital Signs - 24 hr 02/18/22 18:00 02/18/22 20:00 02/18/22 20:00 Temperature 97.8 F Pulse Rate 88 100 89 Respiratory Rate 18 Blood Pressure 113/96 H Pulse Oximetry 95 Oxygen Delivery Oxygen Flow Rate Fraction of Inspired Oxygen 02/18/22 20:00 02/18/22 21:54 02/19/22 00:00 Temperature 99.0 F Pulse Rate 89 82 83 Respiratory Rate 18 18 Blood Pressure 140/58 L Pulse Oximetry 95 95 Oxygen Delivery Nasal Cannula Oxygen Flow Rate 2 Fraction of Inspired Oxygen 02/19/22 00:00 02/19/22 00:00 02/18/22 22:00 Temperature Pulse Rate 100 100 86 Respiratory Rate 18 20 Blood Pressure Pulse Oximetry 95 92 Oxygen Delivery Nasal Cannula Nasal Cannula Oxygen Flow Rate 2 2 Fraction of Inspired Oxygen 02/18/22 22:10 02/18/22 22:23 02/19/22 02:00 Temperature Pulse Rate 86 90 78 Respiratory Rate 18 18 Blood Pressure Pulse Oximetry Oxygen Delivery Oxygen Flow Rate Fraction of Inspired Oxygen 02/19/22 04:00 02/19/22 04:00 02/19/22 04:00 Temperature 99.0 F Pulse Rate 83 83 87 Respiratory Rate 18 20 Blood Pressure 175/68 H Pulse Oximetry 95 95 Oxygen Delivery Nasal Cannula Oxygen Flow Rate 2 Fraction of Inspired Oxygen 02/19/22 05:44 02/19/22 08:00 02/19/22 09:20 Temperature 97.9 F Pulse Rate 84 103 H 89 Respiratory Rate 22 H 18 Blood Pressure 149/61 H Pulse Oximetry 97 Oxygen Delivery Oxygen Flow Rate Fraction of Inspired Oxygen 02/19/22 09:28 02/19/22 09:29 02/19/22 08:00 Temperature Pulse Rate 100 81 Respiratory Rate 18 Blood Pressure Pulse Oximetry 95
[2022-02-19] MEDS: BISACODYL 10 MG SUPPOSITORY RECTAL (17:28)
[2022-02-19 20:43] LABS: Glucose Point of Care 162 mg/dl (65-105)
[2022-02-19] MEDS: MONTELUKAST SODIUM 10 MG TABLET PO (20:44)
[2022-02-19] MEDS: SIMVASTATIN 20 MG TABLET PO (20:45)
[2022-02-19] MEDS: MELATONIN 5 MG TABLET 10 MG PO (20:45)
--- NOTE | 2022-02-19 21:05 | PC.NURSE ---
This patient, Rosa Angela, was transferred to [ [id number]] on 02/19/22 at 2106. Personal belongings sent with patient. Report given to [Laurie cobb ]. Appropriate documentation sent with patient.
[2022-02-19] MEDS: MORPHINE SULFATE (*CRX) 4 MG/ML INJ 2 MG IV PUSH (23:45)
[2022-02-20] VITALS (15 sets, daily range): BP systolic 146–160; BP diastolic 56–93; PULSE 77–150; RESP 16–20; TEMP 36.5–37.1; O2SAT 94–97
[2022-02-20] MEDS: ENOXAPARIN 80 MG/0.8 ML SYRINGE SUB-Q (05:51)
[2022-02-20] MEDS: IPRATROPIUM BR 0.02% INH SOLN 0.5 MG/2.5 ML VIAL INHALATION ×3 (08:22→21:40)
[2022-02-20 08:44] LABS: Basophils Percent Auto 0.3 % (0.2-1.2); Eosinophils Absolute Auto 0.2 K/mm3 (0-0.3); Hematocrit 36.6 % (37.0-47.0); Immature Granulocyte Percent A 0.6 % (0-0.5); Lymphocytes Absolute Auto 0.95 K/mm3 (0.9-3.2); Lymphocytes Percent Auto 6.2 % (18.3-44.2); Mean Corpuscular HGB Conc 32.8 g/dl (32-36); Mean Corpuscular Hemoglobin 27.6 pg (26-34); Mean Corpuscular Volume 84.3 fl (80-100); Mean Platelet Volume 9.6 fl (7.4-10.4); Monocytes Absolute Auto 1.2 K/mm3 (0.1-0.6); Neutrophils Absolute Auto 12.9 K/mm3 (1.3-6.7); Neutrophils Percent Auto 83.9 % (45.5-73.1); Platelet Count Result 481 k/mm3 (150-375); Red Blood Count 4.34 M/mm3 (4.2-5.4); Red Cell Distribution Width 13.5 % (11.5-14.5); White Blood Count 15.4 K/mm3 (4.5-10.0)
[2022-02-20 08:50] LABS: Alanine Aminotransferase 43 U/L (6-35); Albumin Level 4.1 g/dL (3.5-5.1); Alkaline Phosphatase 92 U/L (38-126); Anion Gap 8 mmol/L (8-16); Aspartate Amino Transferase 44 U/L (14-36); Bilirubin,Total 1.2 mg/dL (0.2-1.3); Blood Urea Nitrogen 9 mg/dL (7-17); Carbon Dioxide 28 mmol/L (22-30); Chloride 99 mmol/L (98-107); Estimated CRCL calculation 68 ml/min; Estimated Glomerular Filt Rate > 60; Glucose 151 mg/dL (65-110); Magnesium 2.1 mg/dL (1.6-2.3); Potassium 3.4 mmol/L (3.4-5.0); Sodium 135 mmol/L (137-145)
[2022-02-20] MEDS: hydroCHLOROthiazide 12.5 MG CAPSULE PO ×2 (09:45→17:01)
[2022-02-20] MEDS: TICAGRELOR 90 MG TABLET PO ×2 (09:46→20:39)
[2022-02-20] MEDS: THERAPEUTIC MULTIVITAMINS/MINERALS TAB (*BKC) 1 TABLET PO (09:46)
[2022-02-20] MEDS: SENNOSIDES 8.6 MG TABLET PO (09:46)
[2022-02-20] MEDS: DOCUSATE SODIUM 100 MG CAPSULE PO ×2 (09:46→20:40)
[2022-02-20] MEDS: PANTOPRAZOLE 40 MG TABLET PO (09:46)
[2022-02-20] MEDS: amLODIPine BESYLATE 5 MG TABLET 10 MG PO (09:46)
[2022-02-20] MEDS: ASPIRIN 81 MG CHEWABLE TABLET PO (09:46)
[2022-02-20] MEDS: CHOLECALCIFEROL 1,000 UNITS TABLET 2000 UNITS PO (09:46)
[2022-02-20] MEDS: LORATADINE 10 MG TABLET PO (09:47)
[2022-02-20] MEDS: BISACODYL 10 MG SUPPOSITORY RECTAL (16:13)
--- NOTE | 2022-02-20 16:56 | PM.IMPN ---
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 on cardizem oral now. off cardizem gtt. Hypoxic respiratory failure needing nasal cannula oxygen supplementation Constipation no bm since past 10 days: will give suppository. on colace and senna already. X-ray with moderate amount of stool. Suppository did not help. Will given an enema. low back pain: will get xray. morphine iv prn. tylneol prn. Large sliding hiatal hernia Hypertension History of stroke 2019 Switched to oral Cardizem on Lovenox subQ also on aspirin and Brilinta if need chronic anticoagulation will need to stop 1 of the antiplatelet. Since remain on sinus rhythm deferred anticoagulation Hyperlipidemia on simvastatin PT OT lives in assisted living facility await PT OT evaluation and recommendation for discharge planning Subjective Date/time seen: 02/20/22 16:56 Interval history: Overnight events noted. Went into AFib with RVR. Currently on Cardizem drip rate control looks sinus with PAC on telemetry still have shortness of breath on exertion 02/19/2022: no overnight events. patient reports in low back pain. has not had bowel movement since 10 days. 02/20/22: No overnight events. Still has not had bowel movement. Getting stronger. No fever chills. Remains in sinus rhythm. Review of Systems Review of Systems: All systems reviewed & are unremarkable except as noted in HPI and below Exam Narrative: moderately obese not in acute distress Patient is comfortable, NAD HEENT: eyes are clear and none icteric LUNGS: Coarse breath sound mild end-expiratory wheezes HEART: RR S1S2 telemetry sinus with PACs ABD: BS+, Soft and nontender Lower extremities: no edema SKIN: nonjaundiced Neuro: grossly intact. Objective Data Vital Signs Vital Signs: Vital Signs - 24 hr 02/19/22 18:00 02/19/22 20:29 02/19/22 20:40 Temperature Pulse Rate 95 90 87 Respiratory Rate 18 18 Blood Pressure Pulse Oximetry Oxygen Delivery Oxygen Flow Rate Fraction of Inspired Oxygen 02/19/22 20:40 02/19/22 20:00 02/19/22 20:00 Temperature 97.4 F L Pulse Rate 93 92 Respiratory Rate 16 Blood Pressure 143/58 H Pulse Oximetry 94 94 Oxygen Delivery Nasal Cannula Oxygen Flow Rate 2 Fraction of Inspired Oxygen 02/19/22 20:00 02/19/22 23:59 02/20/22 00:00 Temperature 98.3 F Pulse Rate 92 93 95 Respiratory Rate 18 20 Blood Pressure 145/61 H Pulse Oximetry 94 95 Oxygen Delivery Nasal Cannula Oxygen Flow Rate 2 Fraction of Inspired Oxygen 28 02/20/22 02:20 02/20/22 02:30 02/20/22 04:00 Temperature Pulse Rate 80 77 81 Respiratory Rate 18 18 Blood Pressure Pulse Oximetry Oxygen Delivery Oxygen Flow Rate Fraction of Inspired Oxygen 02/20/22 04:00 02/20/22 08:23 02/20/22 08:23 Temperature 98.7 F Pulse Rate 90 86 86 Respiratory Rate 18 18 Blood Pressure 152/56 H Pulse Oximetry 97 94 Oxygen Delivery Nasal Cannula Oxygen Flow Rate 2 Fraction of Inspired Oxygen 02/20/22 09:15 02/20/22 13:50 02/20/22
[2022-02-20] MEDS: MELATONIN 5 MG TABLET 10 MG PO (20:40)
[2022-02-20] MEDS: SIMVASTATIN 20 MG TABLET PO (20:40)
[2022-02-20] MEDS: MONTELUKAST SODIUM 10 MG TABLET PO (20:40)
[2022-02-21] VITALS (30 sets, daily range): BP systolic 130–159; BP diastolic 55–117; PULSE 61–159; RESP 16–32; TEMP 36.3–37; O2SAT 91–96
[2022-02-21] MEDS: ENOXAPARIN 80 MG/0.8 ML SYRINGE SUB-Q ×3 (00:14→20:11)
--- NOTE | 2022-02-21 01:01 | ECG_ITS ---
Measurements Intervals [place] Rate: 162 P: [place]: 0 QRS: 18 QRSD: 86 T: 120 QT: 216 QTc: 355 Interpretive Statements ATRIAL FIBRILLATION WITH RAPID VENTRICULAR RESPONSE NONSPECIFIC ST & T-WAVE ABNORMALITY COMPARED TO ECG 02/18/2022 14:24:49 ATRIAL FIBRILLATION NOW PRESENT Electronically Signed On 02-21-2022 8:42:11 CONSUMER LOAN UNDERWRITER by Jackie Rust M.D.
[2022-02-21] MEDS: METOPROLOL TARTRATE INJ 5 MG/5 ML VIAL 2.5 MG IV PUSH (02:24)
[2022-02-21] MEDS: IPRATROPIUM BR 0.02% INH SOLN 0.5 MG/2.5 ML VIAL INHALATION ×2 (03:35→22:10)
[2022-02-21] MEDS: DIGOXIN INJ 250 MCG/ML 2 ML AMP (*BKC) 125 MCG IV PUSH (03:51)
[2022-02-21] MEDS: ACETAMINOPHEN 325 MG TABLET 650 MG PO (05:03)
--- NOTE | 2022-02-21 05:54 | PC.NURSE ---
Called daughter Hannah Matthews regarding transfer to IMU,reson,her condition now,ansewred all her questions. She will be in later to see her mother.
[2022-02-21 06:13] LABS: Basophils Absolute Auto 0.1 K/mm3 (0.0-0.1); Basophils Percent Auto 0.4 % (0.2-1.2); Eosinophils Absolute Auto 0.3 K/mm3 (0-0.3); Eosinophils Percent Auto 1.8 % (0-4.4); Hematocrit 37.2 % (37.0-47.0); Hemoglobin 12.2 g/dL (12.0-15.0); Immature Granulocyte Absolute 0.11 K/mm3 (0.00-0.031); Immature Granulocyte Percent A 0.8 % (0-0.5); Lymphocytes Absolute Auto 1.25 K/mm3 (0.9-3.2); Lymphocytes Percent Auto 8.7 % (18.3-44.2); Mean Corpuscular HGB Conc 32.8 g/dl (32-36); Mean Corpuscular Hemoglobin 27.6 pg (26-34); Mean Corpuscular Volume 84.2 fl (80-100); Mean Platelet Volume 9.9 fl (7.4-10.4); Monocytes Absolute Auto 1.2 K/mm3 (0.1-0.6); Monocytes Percent Auto 8.2 % (2.6-8.5); Neutrophils Absolute Auto 11.6 K/mm3 (1.3-6.7); Neutrophils Percent Auto 80.1 % (45.5-73.1); Platelet Count Result 514 k/mm3 (150-375); Red Blood Count 4.42 M/mm3 (4.2-5.4); Red Cell Distribution Width 13.5 % (11.5-14.5); White Blood Count 14.4 K/mm3 (4.5-10.0)
[2022-02-21 06:23] LABS: Alanine Aminotransferase 49 U/L (6-35); Alkaline Phosphatase 89 U/L (38-126); Anion Gap 8 mmol/L (8-16); Aspartate Amino Transferase 52 U/L (14-36); Bilirubin,Total 0.9 mg/dL (0.2-1.3); Blood Urea Nitrogen 11 mg/dL (7-17); Calcium 9.1 mg/dL (8.4-10.2); Carbon Dioxide 28 mmol/L (22-30); Chloride 100 mmol/L (98-107); Estimated CRCL calculation 58 ml/min; Estimated Glomerular Filt Rate > 60; Glucose 150 mg/dL (65-110); Magnesium 2.2 mg/dL (1.6-2.3); Potassium 3.3 mmol/L (3.4-5.0); Sodium 136 mmol/L (137-145)
--- NOTE | 2022-02-21 06:55 | PC.NURSE ---
This patient, Rosa Angela, was received from [[id number]] on 02/21/22 at 0656. Patient/family oriented to unit policies and routines
[2022-02-21] MEDS: dilTIAZem 100 MG/100 ML 100 MG/100 ML BAG IV CONT (07:15)
[2022-02-21] MEDS: CHOLECALCIFEROL 1,000 UNITS TABLET 2000 UNITS PO (08:20)
[2022-02-21] MEDS: DOCUSATE SODIUM 100 MG CAPSULE PO ×2 (08:20→20:12)
[2022-02-21] MEDS: ASPIRIN 81 MG CHEWABLE TABLET PO (08:20)
[2022-02-21] MEDS: PANTOPRAZOLE 40 MG TABLET PO (08:21)
[2022-02-21] MEDS: LORATADINE 10 MG TABLET PO (08:21)
[2022-02-21] MEDS: THERAPEUTIC MULTIVITAMINS/MINERALS TAB (*BKC) 1 TABLET PO (08:21)
[2022-02-21] MEDS: TICAGRELOR 90 MG TABLET PO (08:21)
[2022-02-21] MEDS: POTASSIUM CHLORIDE 20 MEQ TABLET 40 MEQ PO (08:42)
[2022-02-21] MEDS: hydroCHLOROthiazide 12.5 MG CAPSULE PO ×2 (08:42→18:00)
[2022-02-21] MEDS: amLODIPine BESYLATE 5 MG TABLET 10 MG PO (09:54)
--- NOTE | 2022-02-21 10:56 | PM.CNCAR ---
Assessment and Plan Assessment and plan (1) Paroxysmal atrial fibrillation: Code(s): I48.0 - Paroxysmal atrial fibrillation Status: Acute Assessment and Plan: Elderly lady who is had 2 episodes of AFib RVR this admission. Had recurrence despite treatment with p.o. Cardizem. Currently in sinus rhythm back on a Cardizem drip. May have been provoked by her acute illness, but she does have risk factors for recurrent AFib. May need long-term tx. Start sotalol 80 mg b.i.d. to prevent recurrence Follow QT interval with daily EKGs. Stay on telemetry, preferably in IMU, while loading with sotalol. Change IV cardizem back to po (DC amlodipine since both Ca+ blockers). Recommend anticoagulation. Currently on Lovenox. Recommend change to Eliquis 5 mg b.i.d. prior to discharge. Will need to discontinue 1 of her anti-platelet agents, at least, and I would recommend discontinuing Brilinta Reviewed above with the patient's daughter; also always concerned about bleeding risk particular with falls (2) Community acquired pneumonia: Qualifiers: Laterality: unspecified laterality Qualified Code(s): J18.9 - Pneumonia, unspecified organism Code(s): J18.9 - Pneumonia, unspecified organism Status: Acute Assessment and Plan: On antibiotics for community-acquired pneumonia (3) RSV (respiratory syncytial virus infection): Code(s): B33.8 - Other specified viral diseases Status: Acute Assessment and Plan: Diagnosed with RSV earlier this month. (4) History of stroke: Code(s): Z86.73 - Personal history of transient ischemic attack (TIA), and cerebral infarction without residual deficits Status: Acute Assessment and Plan: Stroke in 2019, treated with aspirin and Brilinta. Reasonable to stop Brilinta at this point I believe an add Eliquis. May need to stop aspirin to if she has bleeding issues. (5) History of fall: Code(s): Z91.81 - History of falling Status: Acute Assessment and Plan: Walks with a walker, has had a couple falls. Fall precautions (6) Aortic valve stenosis, nonrheumatic: Code(s): I35.0 - Nonrheumatic aortic (valve) stenosis Status: Acute Assessment and Plan: Mild aortic stenosis noted. Recommend follow-up echo in 1-2 years. (7) Hypertension: Code(s): I10 - Essential (primary) hypertension Status: Acute Assessment and Plan: History of hypertension, blood pressure running mildly elevated on this admission. Outpatient follow-up History of Present Illness History of Present Illness Consult date/time: 02/21/22 10:56 Reason For Visit: RSV/Community Acquired Pneumonia/Pleurisy/Colitis Narrative: Rosa Angela is an 87 y.o. female whom I was asked to see at the request of Dr. Lawson for my advice and opinion regarding her atrial fibrillation RVR, in consultation. She has a history of hypertension, hyperlipidemia, stroke in 2019 treated by [facility] with aspirin and Brilinta, dementia, and she is taking aspirin and Brilinta. The patient presented to the emergency room with myalgias and was RSV positive on 02/16/2022. She again presented to the emergency room on 02/16/2022 with chest pain and shortness of breath, admitted with sepsis, pancolitis and community acquired (+RSV?) pneumonia. She had an episode AFib RVR and 02/17/2022 and converted to sinus rhythm on a Cardizem drip, and maintained on oral Cardizem 120 mg daily and anticoagulated with Lovenox 80 mg daily. Her echocardiogram showed EF 65-70% with mild aortic stenosis. She went back and AFib RVR with heart rates in the 140s to 150s around 1:00 a.m. this morning she was given 125 mcg of digoxin IV push, metoprolol 2.5 mg once, and started back on a Cardizem drip at 5 milligrams/hour. She has converted to sinus rhythm. The patient is not a good is historian; some of the history was obtained from stefani
[2022-02-21 11:13] LABS: Glucose Point of Care 147 mg/dl (65-105)
[2022-02-21 12:17] LABS: Glucose Point of Care 127 mg/dl (65-105)
--- NOTE | 2022-02-21 15:18 | PM.IMPN ---
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 on cardizem oral now. off cardizem gtt. Converted back to AFib with RVR 02/20/2022 back on Cardizem drip. Cardiology consulted. Plan for sotalol load. Anticoagulation required as chads Vasc score is high. Will stop her Brilinta since she is going to be on long-term anticoagulation now. Hypoxic respiratory failure needing nasal cannula oxygen supplementation Constipation no bm since past 10 days: will give suppository. on colace and senna already. X-ray with moderate amount of stool. Suppository did not help. Will given an enema. This has not been given yet. Discussed with nursing staff to administer 1 today. low back pain: will get xray. morphine iv prn. tylneol prn. Large sliding hiatal hernia Hypertension History of stroke 2019 Hyperlipidemia on simvastatin Disposition: PT OT lives in assisted living facility await PT OT evaluation and recommendation for discharge planning Code status full code Subjective Date/time seen: 02/21/22 15:18 Interval history: Overnight events noted. Went into AFib with RVR. Currently on Cardizem drip rate control looks sinus with PAC on telemetry still have shortness of breath on exertion 02/19/2022: no overnight events. patient reports in low back pain. has not had bowel movement since 10 days. 02/20/22: No overnight events. Still has not had bowel movement. Getting stronger. No fever chills. Remains in sinus rhythm. 02/21/2022: Overnight events noted went into AFib with RVR again. Started on Cardizem drip with conversion back to sinus rhythm this a.m.. Still constipated son had any bowel movement. Shortness of breath exertion. Bedside discussed with. Remains afebrile. Review of Systems Review of Systems: All systems reviewed & are unremarkable except as noted in HPI and below Exam Narrative: moderately obese not in acute distress Patient is comfortable, NAD HEENT: eyes are clear and none icteric LUNGS: Coarse breath sound mild end-expiratory wheezes HEART: RR S1S2 telemetry sinus with PACs ABD: BS+, Soft and nontender Lower extremities: no edema SKIN: nonjaundiced Neuro: grossly intact. Objective Data Vital Signs Vital Signs: Vital Signs - 24 hr 02/20/22 16:00 02/20/22 21:40 02/20/22 22:00 Temperature 97.8 F Pulse Rate 85 78 89 Respiratory Rate 16 20 Blood Pressure 160/75 H Pulse Oximetry 96 Oxygen Delivery Oxygen Flow Rate Fraction of Inspired Oxygen 02/20/22 20:00 02/21/22 02:24 02/20/22 20:00 Temperature Pulse Rate 83 150 H 150 H Respiratory Rate 20 Blood Pressure Pulse Oximetry 96 Oxygen Delivery Nasal Cannula Oxygen Flow Rate 2 Fraction of Inspired Oxygen 2 02/21/22 03:51 02/21/22 02:30 02/21/22 00:00 Temperature Pulse Rate 150 H 156 H 83 Respiratory Rate 20 Blood Pressure 130/55 L Pulse Oximetry 94 Oxygen Delivery Oxygen Flow Rate Fraction of Inspired Oxygen 02/21/22 04:00 02/21/22 03:35 02/20/22 21:40 Temperature Pulse Rate 143 H 143 H 86
[2022-02-21] MEDS: SOTALOL HCL 80 MG TABLET PO ×2 (15:26→23:47)
[2022-02-21 16:58] LABS: Glucose Point of Care 149 mg/dl (65-105)
[2022-02-21] MEDS: SIMVASTATIN 20 MG TABLET PO (20:11)
[2022-02-21] MEDS: MONTELUKAST SODIUM 10 MG TABLET PO (20:11)
[2022-02-21] MEDS: MELATONIN 5 MG TABLET 10 MG PO (20:20)
[2022-02-21] MEDS: WATER FOR IRRIGATION, STERILE 1,000 ML BOTTLE 1000 ML (21:07)
[2022-02-22] VITALS (22 sets, daily range): BP systolic 126–150; BP diastolic 45–93; PULSE 56–78; RESP 14–26; TEMP 35.9–37.1; O2SAT 93–100
[2022-02-22] MEDS: IPRATROPIUM BR 0.02% INH SOLN 0.5 MG/2.5 ML VIAL INHALATION ×3 (03:33→21:10)
[2022-02-22 05:38] LABS: Basophils Absolute Auto 0.1 K/mm3 (0.0-0.1); Basophils Percent Auto 0.6 % (0.2-1.2); Eosinophils Absolute Auto 0.4 K/mm3 (0-0.3); Eosinophils Percent Auto 3.2 % (0-4.4); Hematocrit 36.5 % (37.0-47.0); Immature Granulocyte Absolute 0.16 K/mm3 (0.00-0.031); Immature Granulocyte Percent A 1.4 % (0-0.5); Lymphocytes Absolute Auto 1.36 K/mm3 (0.9-3.2); Lymphocytes Percent Auto 11.7 % (18.3-44.2); Mean Corpuscular HGB Conc 32.9 g/dl (32-36); Mean Corpuscular Hemoglobin 28.3 pg (26-34); Mean Corpuscular Volume 86.1 fl (80-100); Mean Platelet Volume 9.8 fl (7.4-10.4); Monocytes Absolute Auto 0.9 K/mm3 (0.1-0.6); Monocytes Percent Auto 7.7 % (2.6-8.5); Neutrophils Absolute Auto 8.8 K/mm3 (1.3-6.7); Neutrophils Percent Auto 75.4 % (45.5-73.1); Platelet Count Result 519 k/mm3 (150-375); Red Blood Count 4.24 M/mm3 (4.2-5.4); Red Cell Distribution Width 13.5 % (11.5-14.5); White Blood Count 11.6 K/mm3 (4.5-10.0)
[2022-02-22 05:50] LABS: Alanine Aminotransferase 46 U/L (6-35); Albumin Level 3.9 g/dL (3.5-5.1); Alkaline Phosphatase 82 U/L (38-126); Anion Gap 8 mmol/L (8-16); Aspartate Amino Transferase 40 U/L (14-36); Bilirubin,Total 0.7 mg/dL (0.2-1.3); Blood Urea Nitrogen 16 mg/dL (7-17); Carbon Dioxide 26 mmol/L (22-30); Chloride 103 mmol/L (98-107); Estimated CRCL calculation 58 ml/min; Estimated Glomerular Filt Rate > 60; Glucose 134 mg/dL (65-110); Magnesium 2.2 mg/dL (1.6-2.3); Potassium 3.6 mmol/L (3.4-5.0); Sodium 137 mmol/L (137-145)
--- NOTE | 2022-02-22 08:00 | ECG_ITS ---
Measurements Intervals [place] Rate: 63 P: 82 UT: 174 QRS: 1 QRSD: 88 T: 108 QT: 472 QTc: 486 Interpretive Statements SINUS RHYTHM NONSPECIFIC T-WAVE ABNORMALITY PROLONGED QT INTERVAL COMPARED TO ECG 02/21/2022 01:11:56 SINUS RHYTHM NOW PRESENT PROLONGED QT INTERVAL NOW PRESENT Electronically Signed On 02-22-2022 14:48:09 [employer] by Jackie Rust M.D.
[2022-02-22] MEDS: CHOLECALCIFEROL 1,000 UNITS TABLET 2000 UNITS PO (08:27)
[2022-02-22] MEDS: ASPIRIN 81 MG CHEWABLE TABLET PO (08:28)
[2022-02-22] MEDS: BISACODYL 10 MG SUPPOSITORY RECTAL (08:28)
[2022-02-22] MEDS: ENOXAPARIN 80 MG/0.8 ML SYRINGE SUB-Q ×2 (08:29→20:47)
[2022-02-22] MEDS: THERAPEUTIC MULTIVITAMINS/MINERALS TAB (*BKC) 1 TABLET PO (08:29)
[2022-02-22] MEDS: DOCUSATE SODIUM 100 MG CAPSULE PO ×2 (08:29→20:47)
[2022-02-22] MEDS: hydroCHLOROthiazide 12.5 MG CAPSULE PO ×2 (08:39→18:00)
[2022-02-22] MEDS: LORATADINE 10 MG TABLET PO (11:53)
[2022-02-22] MEDS: PANTOPRAZOLE 40 MG TABLET PO (12:39)
--- NOTE | 2022-02-22 13:18 | PM.IMPN ---
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 on cardizem oral now. off cardizem gtt. Converted back to AFib with RVR 02/20/2022 back on Cardizem drip. Cardiology consulted. Is being loaded with sotalol now. QTC a elevated and hence does lowered. Anticoagulation required as chads Vasc score is high. Will stop her Brilinta since she is going to be on long-term anticoagulation now. Eliquis at discharge Hypoxic respiratory failure needing nasal cannula oxygen supplementation Constipation no bm since past 10 days: will give suppository. on colace and senna already. X-ray with moderate amount of stool. Suppository did not help. enema x 1, with no further bm. suppository this am. will also give mom low back pain: will get xray. morphine iv prn. tylneol prn. Large sliding hiatal hernia Hypertension History of stroke 2019 Hyperlipidemia on simvastatin Disposition: PT OT . lives in assisted living facility await PT OT evaluation and recommendation for discharge planning Code status full code Subjective Date/time seen: 02/22/22 13:18 Interval history: Overnight events noted. Went into AFib with RVR. Currently on Cardizem drip rate control looks sinus with PAC on telemetry still have shortness of breath on exertion 02/19/2022: no overnight events. patient reports in low back pain. has not had bowel movement since 10 days. 02/20/22: No overnight events. Still has not had bowel movement. Getting stronger. No fever chills. Remains in sinus rhythm. 02/21/2022: Overnight events noted went into AFib with RVR again. Started on Cardizem drip with conversion back to sinus rhythm this a.m.. Still constipated son had any bowel movement. Shortness of breath exertion. Bedside discussed with. Remains afebrile. 02/22/2022: Remains in sinus rhythm. No new complaints. Has not had any bowel movement yet. Review of Systems Review of Systems: All systems reviewed & are unremarkable except as noted in HPI and below Exam Narrative: moderately obese not in acute distress Patient is comfortable, NAD HEENT: eyes are clear and none icteric LUNGS: Coarse breath sound mild end-expiratory wheezes HEART: RR S1S2 telemetry sinus with PACs ABD: BS+, Soft and nontender Lower extremities: no edema SKIN: nonjaundiced Neuro: grossly intact. Objective Data Vital Signs Vital Signs: Vital Signs - 24 hr 02/21/22 15:26 02/21/22 15:30 02/21/22 16:00 Temperature Pulse Rate 84 86 Respiratory Rate Blood Pressure 143/60 H Pulse Oximetry Oxygen Delivery Oxygen Flow Rate 02/21/22 14:00 02/21/22 16:00 02/21/22 16:00 Temperature 98.6 F Pulse Rate 98 73 Respiratory Rate 18 Blood Pressure 159/59 H Pulse Oximetry 91 95 Oxygen Delivery Nasal Cannula Oxygen Flow Rate 2 02/21/22 18:00 02/21/22 20:00 02/21/22 22:14 Temperature 97.8 F Pulse Rate 67 64 62 Respiratory Rate 20 16 Blood Pressure 134/55 L Pulse Oximetry 92 Oxygen Delivery Oxygen Flow Rate 02/21/22 20:00 02/21/22 22:00 02/21/22 20:00 Temperat
[2022-02-22] MEDS: MONTELUKAST SODIUM 10 MG TABLET PO (20:47)
[2022-02-22] MEDS: MELATONIN 5 MG TABLET 10 MG PO (20:47)
[2022-02-22] MEDS: SIMVASTATIN 20 MG TABLET PO (20:47)
[2022-02-22] MEDS: SOTALOL HCL 40 MG TABLET PO (20:47)
[2022-02-23] VITALS (23 sets, daily range): BP systolic 124–169; BP diastolic 44–75; PULSE 56–88; RESP 16–22; TEMP 36.2–36.9; O2SAT 92–98
[2022-02-23] MEDS: IPRATROPIUM BR 0.02% INH SOLN 0.5 MG/2.5 ML VIAL INHALATION ×4 (03:11→22:09)
[2022-02-23 04:13] LABS: Basophils Absolute Auto 0.1 K/mm3 (0.0-0.1); Basophils Percent Auto 0.4 % (0.2-1.2); Eosinophils Absolute Auto 0.3 K/mm3 (0-0.3); Eosinophils Percent Auto 2.6 % (0-4.4); Hematocrit 35.9 % (37.0-47.0); Hemoglobin 11.9 g/dL (12.0-15.0); Immature Granulocyte Absolute 0.13 K/mm3 (0.00-0.031); Lymphocytes Absolute Auto 1.71 K/mm3 (0.9-3.2); Lymphocytes Percent Auto 13.7 % (18.3-44.2); Mean Corpuscular HGB Conc 33.1 g/dl (32-36); Mean Corpuscular Hemoglobin 28.3 pg (26-34); Mean Corpuscular Volume 85.3 fl (80-100); Mean Platelet Volume 9.6 fl (7.4-10.4); Monocytes Absolute Auto 0.9 K/mm3 (0.1-0.6); Neutrophils Absolute Auto 9.4 K/mm3 (1.3-6.7); Neutrophils Percent Auto 75.3 % (45.5-73.1); Platelet Count Result 502 k/mm3 (150-375); Red Blood Count 4.21 M/mm3 (4.2-5.4); Red Cell Distribution Width 13.4 % (11.5-14.5); White Blood Count 12.5 K/mm3 (4.5-10.0)
[2022-02-23 04:30] LABS: Alanine Aminotransferase 42 U/L (6-35); Albumin Level 3.9 g/dL (3.5-5.1); Alkaline Phosphatase 87 U/L (38-126); Anion Gap 8 mmol/L (8-16); Aspartate Amino Transferase 36 U/L (14-36); Bilirubin,Total 0.7 mg/dL (0.2-1.3); Blood Urea Nitrogen 18 mg/dL (7-17); Calcium 8.7 mg/dL (8.4-10.2); Carbon Dioxide 25 mmol/L (22-30); Chloride 102 mmol/L (98-107); Estimated CRCL calculation 58 ml/min; Estimated Glomerular Filt Rate > 60; Glucose 135 mg/dL (65-110); Magnesium 2.2 mg/dL (1.6-2.3); Potassium 3.2 mmol/L (3.4-5.0); Sodium 135 mmol/L (137-145)
--- NOTE | 2022-02-23 08:00 | ECG_ITS ---
Measurements Intervals [place] Rate: 76 P: 79 MT: 174 QRS: 14 QRSD: 90 T: 91 QT: 428 QTc: 483 Interpretive Statements SINUS RHYTHM NONSPECIFIC T-WAVE ABNORMALITY ABNORMAL ECG Electronically Signed On 02-23-2022 10:30:09 [employer] by Oscar High M.D.
[2022-02-23] MEDS: CHOLECALCIFEROL 1,000 UNITS TABLET 2000 UNITS PO (08:19)
[2022-02-23] MEDS: ASPIRIN 81 MG CHEWABLE TABLET PO (08:21)
[2022-02-23] MEDS: SOTALOL HCL 40 MG TABLET PO ×2 (08:24→21:27)
[2022-02-23] MEDS: THERAPEUTIC MULTIVITAMINS/MINERALS TAB (*BKC) 1 TABLET PO (08:24)
[2022-02-23] MEDS: PANTOPRAZOLE 40 MG TABLET PO (08:25)
[2022-02-23] MEDS: hydroCHLOROthiazide 12.5 MG CAPSULE PO ×2 (08:26→17:16)
[2022-02-23] MEDS: LORATADINE 10 MG TABLET PO (08:46)
[2022-02-23] MEDS: DOCUSATE SODIUM 100 MG CAPSULE PO (08:46)
[2022-02-23] MEDS: ENOXAPARIN 80 MG/0.8 ML SYRINGE SUB-Q (08:47)
--- NOTE | 2022-02-23 09:40 | PM.PNCARD ---
Progress Note: A&P Assessment and Plan (1) Paroxysmal atrial fibrillation: Code(s): I48.0 - Paroxysmal atrial fibrillation Status: Acute Assessment and Plan: Elderly lady who is had 2 episodes of AFib RVR this admission. Had recurrence despite treatment with p.o. Cardizem. Currently in sinus rhythm May have been provoked by her acute illness, but she does have risk factors for recurrent AFib. May need long-term tx. Continue sotalol 40mg b.i.d. Rec'd second loading dose this morning. Follow QT interval with daily EKGs. Improved this morning, 483 ms. Stay on telemetry, preferably in IMU, while loading with sotalol. Discontinue p.o. cardizem Recommend anticoagulation. Will start DOAC in the form of apixaban 5mg b.i.d (2) Community acquired pneumonia: Qualifiers: Laterality: unspecified laterality Qualified Code(s): J18.9 - Pneumonia, unspecified organism Code(s): J18.9 - Pneumonia, unspecified organism Status: Acute Assessment and Plan: On antibiotics for community-acquired pneumonia (3) RSV (respiratory syncytial virus infection): Code(s): B33.8 - Other specified viral diseases Status: Acute Assessment and Plan: Diagnosed with RSV earlier this month. (4) History of stroke: Code(s): Z86.73 - Personal history of transient ischemic attack (TIA), and cerebral infarction without residual deficits Status: Acute Assessment and Plan: Stroke in 2019, treated with aspirin and Brilinta. Brilinta stopped in light of addition of Eliquis. May need to stop aspirin to if she has bleeding issues. (5) History of fall: Code(s): Z91.81 - History of falling Status: Acute Assessment and Plan: Walks with a walker, has had a couple falls. Fall precautions (6) Aortic valve stenosis, nonrheumatic: Code(s): I35.0 - Nonrheumatic aortic (valve) stenosis Status: Acute Assessment and Plan: Mild aortic stenosis noted. Recommend follow-up echo in 1-2 years. (7) Hypertension: Code(s): I10 - Essential (primary) hypertension Status: Acute Assessment and Plan: History of hypertension, blood pressure running mildly elevated on this admission. Outpatient follow-up Subjective Date/time seen: 02/23/22 09:40 Cardiology follow up for atrial fibrillation Remains in sinus rhythm today. QTc improved. She feels ok, no chest pain, shortness of breath, palpitations. Review of Systems Constitutional: Constitutional: Denies fever(s) Eyes: Eyes: Reports no additional eye complaints ENT: Denies epistaxis Cardiovascular: Cardiovascular: Denies chest pain, Reports pedal edema, Reports leg edema, Denies lightheadedness, Reports dyspnea and Reports dyspnea on exertion Respiratory: Respiratory: Reports chest congestion, Reports cough, Reports dyspnea and Reports dyspnea on exertion Gastrointestinal: Gastrointestinal: Reports abdominal pain, Denies hematochezia and Reports constipation (Has not responded to laxatives so far) Genitourinary: Genitourinary: Denies hematuria Musculoskeletal: Musculoskeletal: Reports no additional musculoskeletal complaints and Reports myalgias Integumentary/Breasts: Skin/Breast: Reports system reviewed and no additional complaints, except as docu Neurologic: Reports system reviewed and no additional complaints, except as documented, Reports behavioral changes (Restless since she has been sick) and Reports confusion Psychiatric: Psychiatric: Reports behavioral changes (Restless since she has been sick) and Reports confusion Exam Const: General: cooperative, healthy appearing, comfortable and confusion Orientation/consciousness: oriented to person, patient oriented x3 and confusion HENMT: Mouth: Yes dry mucous membranes Eyes: EOM: EOMs intact bilaterally Neck: Neck: supple and no JVD Thyroid: thyroid normal Resp: Effort & Inspection: normal resp
[2022-02-23] MEDS: POTASSIUM CHLORIDE 20 MEQ TABLET 40 MEQ PO (13:04)
--- NOTE | 2022-02-23 18:32 | PM.IMPN ---
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 on cardizem oral now. off cardizem gtt. Converted back to AFib with RVR 02/20/2022 back on Cardizem drip. Cardiology consulted. Is being loaded with sotalol now. QTC a elevated and hence does lowered. Anticoagulation required as chads Vasc score is high. Will stop her Brilinta since she is going to be on long-term anticoagulation now. Eliquis at discharge Hypoxic respiratory failure needing nasal cannula oxygen supplementation Constipation no bm since past 10 days: will give suppository. on colace and senna already. X-ray with moderate amount of stool. Suppository did not help. enema x 1, with no further bm. suppository this am. received mom. Finally had bowel movement low back pain: will get xray. morphine iv prn. tylenol prn. Large sliding hiatal hernia Hypertension History of stroke 2019 Hyperlipidemia on simvastatin Disposition: PT OT . lives in assisted living facility await PT OT evaluation and recommendation for discharge planning Code status full code Subjective Date/time seen: 02/23/22 18:32 Interval history: Overnight events noted. Went into AFib with RVR. Currently on Cardizem drip rate control looks sinus with PAC on telemetry still have shortness of breath on exertion 02/19/2022: no overnight events. patient reports in low back pain. has not had bowel movement since 10 days. 02/20/22: No overnight events. Still has not had bowel movement. Getting stronger. No fever chills. Remains in sinus rhythm. 02/21/2022: Overnight events noted went into AFib with RVR again. Started on Cardizem drip with conversion back to sinus rhythm this a.m.. Still constipated son had any bowel movement. Shortness of breath exertion. Bedside discussed with. Remains afebrile. 02/22/2022: Remains in sinus rhythm. No new complaints. Has not had any bowel movement yet. 02/23/2022: No overnight events. Did have 2 large bowel movement yesterday. Heart rate remains sinus. Feels weak. Review of Systems Review of Systems: All systems reviewed & are unremarkable except as noted in HPI and below Exam Narrative: moderately obese not in acute distress Patient is comfortable, NAD HEENT: eyes are clear and none icteric LUNGS: Coarse breath sound No respiratory distress clear to auscultation HEART: RR S1S2 telemetry sinus with PACs ABD: BS+, Soft and nontender Lower extremities: no edema SKIN: nonjaundiced Neuro: grossly intact. Objective Data Vital Signs Vital Signs: Vital Signs - 24 hr 02/22/22 20:47 02/22/22 21:14 02/22/22 21:23 Temperature Pulse Rate 78 72 Respiratory Rate 16 Blood Pressure Pulse Oximetry 94 Oxygen Delivery Nasal Cannula Oxygen Flow Rate 2 02/22/22 21:23 02/22/22 20:00 02/22/22 20:00 Temperature 98.7 F Pulse Rate 71 77 Respiratory Rate 16 26 H Blood Pressure 129/45 L Pulse Oximetry 94 Oxygen Delivery Room Air Oxygen Flow Rate 02/23/22 00:00 02/23/22 00:00 02/22/22 20:00 Temperature 97.2 F L Pulse Rate 75 72 Res
[2022-02-23] MEDS: MELATONIN 5 MG TABLET 10 MG PO (21:28)
[2022-02-23] MEDS: APIXABAN 5 MG TABLET PO (21:28)
[2022-02-23] MEDS: MONTELUKAST SODIUM 10 MG TABLET PO (21:29)
[2022-02-23] MEDS: SIMVASTATIN 20 MG TABLET PO (21:30)
[2022-02-24] VITALS (22 sets, daily range): BP systolic 134–157; BP diastolic 48–60; PULSE 68–85; RESP 14–20; TEMP 36.3–37.1; O2SAT 94–100
[2022-02-24] MEDS: IPRATROPIUM BR 0.02% INH SOLN 0.5 MG/2.5 ML VIAL INHALATION ×4 (02:42→20:00)
[2022-02-24 05:04] LABS: Basophils Absolute Auto 0.1 K/mm3 (0.0-0.1); Basophils Percent Auto 0.5 % (0.2-1.2); Eosinophils Absolute Auto 0.3 K/mm3 (0-0.3); Eosinophils Percent Auto 2.7 % (0-4.4); Hematocrit 36.8 % (37.0-47.0); Immature Granulocyte Absolute 0.13 K/mm3 (0.00-0.031); Immature Granulocyte Percent A 1.3 % (0-0.5); Lymphocytes Absolute Auto 1.64 K/mm3 (0.9-3.2); Lymphocytes Percent Auto 15.8 % (18.3-44.2); Mean Corpuscular HGB Conc 32.6 g/dl (32-36); Mean Corpuscular Hemoglobin 27.7 pg (26-34); Mean Platelet Volume 9.8 fl (7.4-10.4); Monocytes Absolute Auto 0.8 K/mm3 (0.1-0.6); Monocytes Percent Auto 7.6 % (2.6-8.5); Neutrophils Absolute Auto 7.5 K/mm3 (1.3-6.7); Neutrophils Percent Auto 72.1 % (45.5-73.1); Platelet Count Result 471 k/mm3 (150-375); Red Blood Count 4.33 M/mm3 (4.2-5.4); Red Cell Distribution Width 13.3 % (11.5-14.5); White Blood Count 10.4 K/mm3 (4.5-10.0)
[2022-02-24 05:13] LABS: Alanine Aminotransferase 40 U/L (6-35); Alkaline Phosphatase 83 U/L (38-126); Anion Gap 6 mmol/L (8-16); Aspartate Amino Transferase 36 U/L (14-36); Bilirubin,Total 0.4 mg/dL (0.2-1.3); Blood Urea Nitrogen 16 mg/dL (7-17); Calcium 9.2 mg/dL (8.4-10.2); Carbon Dioxide 29 mmol/L (22-30); Chloride 98 mmol/L (98-107); Estimated CRCL calculation 58 ml/min; Estimated Glomerular Filt Rate > 60; Glucose 130 mg/dL (65-110); Magnesium 2.1 mg/dL (1.6-2.3); Potassium 3.5 mmol/L (3.4-5.0); Sodium 133 mmol/L (137-145)
--- NOTE | 2022-02-24 08:00 | ECG_ITS ---
Measurements Intervals [place] Rate: 69 P: 48 [place]: 180 QRS: -2 QRSD: 85 T: 65 QT: 411 QTc: 442 Interpretive Statements SINUS RHYTHM NONSPECIFIC T-WAVE ABNORMALITY BORDERLINE ECG COMPARED TO ECG 02/23/2022 07:30:11 NO SIGNIFICANT CHANGES Electronically Signed On 02-24-2022 15:34:25 [employer] by Oscar High M.D.
--- NOTE | 2022-02-24 09:09 | PM.PNCARD ---
Progress Note: A&P Assessment and Plan (1) Paroxysmal atrial fibrillation: Code(s): I48.0 - Paroxysmal atrial fibrillation Status: Acute Assessment and Plan: Elderly lady who has had 2 episodes of AFib RVR this admission. Had recurrence despite treatment with p.o. Cardizem. Currently in sinus rhythm May have been provoked by her acute illness, but she does have risk factors for recurrent AFib. May need long-term tx. Continue sotalol 40mg b.i.d. Receiving fourth loading dose this morning. Follow QT interval with daily EKGs Stay on telemetry, preferably in IMU, while loading with sotalol. Recommend anticoagulation. Continue apixaban 5mg b.i.d. (2) Community acquired pneumonia: Qualifiers: Laterality: unspecified laterality Qualified Code(s): J18.9 - Pneumonia, unspecified organism Code(s): J18.9 - Pneumonia, unspecified organism Status: Acute Assessment and Plan: On antibiotics for community-acquired pneumonia (3) RSV (respiratory syncytial virus infection): Code(s): B33.8 - Other specified viral diseases Status: Acute Assessment and Plan: Diagnosed with RSV earlier this month. (4) History of stroke: Code(s): Z86.73 - Personal history of transient ischemic attack (TIA), and cerebral infarction without residual deficits Status: Acute Assessment and Plan: Stroke in 2019, treated with aspirin and Brilinta. Brilinta stopped in light of addition of Eliquis. May need to stop aspirin to if she has bleeding issues. (5) History of fall: Code(s): Z91.81 - History of falling Status: Acute Assessment and Plan: Walks with a walker, has had a couple falls. Fall precautions (6) Aortic valve stenosis, nonrheumatic: Code(s): I35.0 - Nonrheumatic aortic (valve) stenosis Status: Acute Assessment and Plan: Mild aortic stenosis noted. Recommend follow-up echo in 1-2 years. (7) Hypertension: Code(s): I10 - Essential (primary) hypertension Status: Acute Assessment and Plan: History of hypertension, blood pressure running mildly elevated on this admission. Outpatient follow-up Subjective Date/time seen: 02/24/22 09:09 Cardiology follow up for atrial fibrillation She's feeling better this morning. More alert and less confused. She remains in sinus rhythm today. Receiving 4th loading dose of sotalol. Denies palpitations, chest pain, shortness of breath. Review of Systems Constitutional: Constitutional: Denies fever(s) Eyes: Eyes: Reports no additional eye complaints ENT: Denies epistaxis Cardiovascular: Cardiovascular: Denies chest pain, Reports pedal edema, Reports leg edema, Denies lightheadedness, Reports dyspnea and Reports dyspnea on exertion Respiratory: Respiratory: Reports chest congestion, Reports cough, Reports dyspnea and Reports dyspnea on exertion Gastrointestinal: Gastrointestinal: Reports abdominal pain, Denies hematochezia and Reports constipation (Has not responded to laxatives so far) Genitourinary: Genitourinary: Denies hematuria Musculoskeletal: Musculoskeletal: Reports no additional musculoskeletal complaints and Reports myalgias Integumentary/Breasts: Skin/Breast: Reports system reviewed and no additional complaints, except as docu Neurologic: Reports system reviewed and no additional complaints, except as documented, Reports behavioral changes (Restless since she has been sick) and Reports confusion Psychiatric: Psychiatric: Reports behavioral changes (Restless since she has been sick) and Reports confusion Exam Const: General: cooperative, healthy appearing, comfortable, confusion and uncomfortable Orientation/consciousness: oriented to person, patient oriented x3 and confusion Other: Older female with frequent congested cough, requesting to hold her granddaughter's hand, appearing restless but not in any respiratory distress
[2022-02-24] MEDS: SOTALOL HCL 40 MG TABLET PO ×2 (09:43→22:06)
[2022-02-24] MEDS: APIXABAN 5 MG TABLET PO ×2 (09:43→22:06)
[2022-02-24] MEDS: CHOLECALCIFEROL 1,000 UNITS TABLET 2000 UNITS PO (09:43)
[2022-02-24] MEDS: PANTOPRAZOLE 40 MG TABLET PO (09:45)
[2022-02-24] MEDS: ASPIRIN 81 MG CHEWABLE TABLET PO (09:45)
[2022-02-24] MEDS: hydroCHLOROthiazide 12.5 MG CAPSULE PO ×2 (09:46→16:29)
[2022-02-24] MEDS: THERAPEUTIC MULTIVITAMINS/MINERALS TAB (*BKC) 1 TABLET PO (09:46)
[2022-02-24] MEDS: LORATADINE 10 MG TABLET PO (09:49)
--- NOTE | 2022-02-24 18:27 | PM.IMPN ---
Progress Note: A&P Assessment and Plan (1) Sepsis: Qualifiers: Sepsis acute organ dysfunction status: without acute organ dysfunction Sepsis type: sepsis due to unspecified organism Qualified Code(s): A41.9 - Sepsis, unspecified organism Code(s): A41.9 - Sepsis, unspecified organism Status: Acute (2) Pancolitis: Code(s): K51.00 - Ulcerative (chronic) pancolitis without complications Status: Acute (3) Community acquired pneumonia: Qualifiers: Laterality: unspecified laterality Qualified Code(s): J18.9 - Pneumonia, unspecified organism Code(s): J18.9 - Pneumonia, unspecified organism Status: Acute (4) RSV (respiratory syncytial virus infection): Code(s): B33.8 - Other specified viral diseases Status: Acute Plan Sepsis RSV pneumonia Pancolitis Treated with Zosyn now stopped AFib with RVR 02/17/2022 converted back to sinus rhythm already and remains on sinus rhythm. on cardizem oral now. off cardizem gtt. Converted back to AFib with RVR 02/20/2022 back on Cardizem drip. Cardiology consulted. Is being loaded with sotalol now. QTC a elevated and hence does lowered. Anticoagulation required as chads Vasc score is high. Will stop her Brilinta since she is going to be on long-term anticoagulation now. Sergo has been restarted Hypoxic respiratory failure needing nasal cannula oxygen supplementation this has resolved Constipation no bm since past 10 days: will give suppository. on colace and senna already. X-ray with moderate amount of stool. Suppository did not help. enema x 1, with no further bm. suppository this am. received mom. Finally had bowel movement low back pain: will get xray. morphine iv prn. tylenol prn. Large sliding hiatal hernia Hypertension History of stroke 2019 Hyperlipidemia on simvastatin Disposition: PT OT . lives in assisted living facility await PT OT evaluation and recommendation for discharge planning. Patient family wanted to take her back to assisted living per care coordination. Awaiting clinical improvement Code status full code Subjective Date/time seen: 02/24/22 18:27 Interval history: Overnight events noted. Went into AFib with RVR. Currently on Cardizem drip rate control looks sinus with PAC on telemetry still have shortness of breath on exertion 02/19/2022: no overnight events. patient reports in low back pain. has not had bowel movement since 10 days. 02/20/22: No overnight events. Still has not had bowel movement. Getting stronger. No fever chills. Remains in sinus rhythm. 02/21/2022: Overnight events noted went into AFib with RVR again. Started on Cardizem drip with conversion back to sinus rhythm this a.m.. Still constipated son had any bowel movement. Shortness of breath exertion. Bedside discussed with. Remains afebrile. 02/22/2022: Remains in sinus rhythm. No new complaints. Has not had any bowel movement yet. 02/23/2022: No overnight events. Did have 2 large bowel movement yesterday. Heart rate remains sinus. Feels weak R 02/24/2022: No overnight events. Patient doing well. Feels weak. Review of Systems Review of Systems: All systems reviewed & are unremarkable except as noted in HPI and below Exam Narrative: moderately obese not in acute distress Patient is comfortable, NAD HEENT: eyes are clear and none icteric LUNGS: Coarse breath sound No respiratory distress clear to auscultation HEART: RR S1S2 telemetry sinus with PACs ABD: BS+, Soft and nontender Lower extremities: no edema SKIN: nonjaundiced Neuro: grossly intact. Objective Data Vital Signs Vital Signs: Vital Signs - 24 hr 02/23/22 20:37 02/23/22 21:27 02/23/22 22:09 Temperature 97.9 F Pulse Rate 82 80 88 Respiratory Rate 18 16 Blood Pressure 160/67 H Pulse Oximetry 98 93 Oxygen Delivery Room Air 02/23/22 22:09 02/23/22 20:00 02/23/22 23:48 Temperature 98.4 F Pulse
[2022-02-24] MEDS: DOCUSATE SODIUM 100 MG CAPSULE PO (22:05)
[2022-02-24] MEDS: MONTELUKAST SODIUM 10 MG TABLET PO (22:06)
[2022-02-24] MEDS: MELATONIN 5 MG TABLET 10 MG PO (22:07)
[2022-02-24] MEDS: SIMVASTATIN 20 MG TABLET PO (22:07)
[2022-02-25] VITALS (13 sets, daily range): BP systolic 146–156; BP diastolic 55–80; PULSE 64–88; RESP 14–20; TEMP 36.9–37.1; O2SAT 95–98
[2022-02-25 05:09] LABS: Basophils Absolute Auto 0.1 K/mm3 (0.0-0.1); Basophils Percent Auto 0.6 % (0.2-1.2); Eosinophils Absolute Auto 0.4 K/mm3 (0-0.3); Eosinophils Percent Auto 3.3 % (0-4.4); Hematocrit 36.7 % (37.0-47.0); Immature Granulocyte Absolute 0.12 K/mm3 (0.00-0.031); Immature Granulocyte Percent A 1.1 % (0-0.5); Lymphocytes Absolute Auto 1.62 K/mm3 (0.9-3.2); Lymphocytes Percent Auto 15.1 % (18.3-44.2); Mean Corpuscular HGB Conc 32.7 g/dl (32-36); Mean Corpuscular Hemoglobin 28.2 pg (26-34); Mean Corpuscular Volume 86.2 fl (80-100); Mean Platelet Volume 9.7 fl (7.4-10.4); Monocytes Absolute Auto 0.9 K/mm3 (0.1-0.6); Monocytes Percent Auto 8.4 % (2.6-8.5); Neutrophils Absolute Auto 7.7 K/mm3 (1.3-6.7); Neutrophils Percent Auto 71.5 % (45.5-73.1); Platelet Count Result 454 k/mm3 (150-375); Red Blood Count 4.26 M/mm3 (4.2-5.4); Red Cell Distribution Width 13.6 % (11.5-14.5); White Blood Count 10.8 K/mm3 (4.5-10.0)
[2022-02-25 05:21] LABS: Alanine Aminotransferase 47 U/L (6-35); Albumin Level 4.1 g/dL (3.5-5.1); Alkaline Phosphatase 89 U/L (38-126); Anion Gap 10 mmol/L (8-16); Aspartate Amino Transferase 52 U/L (14-36); Bilirubin,Total 0.4 mg/dL (0.2-1.3); Blood Urea Nitrogen 14 mg/dL (7-17); Carbon Dioxide 27 mmol/L (22-30); Chloride 100 mmol/L (98-107); Estimated CRCL calculation 68 ml/min; Estimated Glomerular Filt Rate > 60; Glucose 127 mg/dL (65-110); Magnesium 2.1 mg/dL (1.6-2.3); Potassium 3.5 mmol/L (3.4-5.0); Sodium 137 mmol/L (137-145)
[2022-02-25] MEDS: THERAPEUTIC MULTIVITAMINS/MINERALS TAB (*BKC) 1 TABLET PO (08:28)
[2022-02-25] MEDS: PANTOPRAZOLE 40 MG TABLET PO (08:28)
[2022-02-25] MEDS: hydroCHLOROthiazide 12.5 MG CAPSULE PO (08:28)
[2022-02-25] MEDS: CHOLECALCIFEROL 1,000 UNITS TABLET 2000 UNITS PO (08:28)
[2022-02-25] MEDS: LORATADINE 10 MG TABLET PO (08:28)
[2022-02-25] MEDS: APIXABAN 5 MG TABLET PO (08:29)
[2022-02-25] MEDS: ASPIRIN 81 MG CHEWABLE TABLET PO (08:29)
[2022-02-25] MEDS: DOCUSATE SODIUM 100 MG CAPSULE PO (08:29)
[2022-02-25] MEDS: SOTALOL HCL 40 MG TABLET PO (08:29)
--- NOTE | 2022-02-25 08:38 | PM.PNCARD ---
Progress Note: A&P Assessment and Plan (1) Paroxysmal atrial fibrillation: Code(s): I48.0 - Paroxysmal atrial fibrillation Status: Acute Assessment and Plan: Elderly lady who has had 2 episodes of AFib RVR this admission. Had recurrence despite treatment with p.o. Cardizem. Currently in sinus rhythm May have been provoked by her acute illness, but she does have risk factors for recurrent AFib. May need long-term tx. Continue sotalol 40mg b.i.d. Has completed sotalol loading at this point QTc has been stable. Check final EKG Recommend anticoagulation. Continue apixaban 5mg b.i.d. OK for discharge from a cardiac perspective (2) Community acquired pneumonia: Qualifiers: Laterality: unspecified laterality Qualified Code(s): J18.9 - Pneumonia, unspecified organism Code(s): J18.9 - Pneumonia, unspecified organism Status: Acute Assessment and Plan: On antibiotics for community-acquired pneumonia (3) RSV (respiratory syncytial virus infection): Code(s): B33.8 - Other specified viral diseases Status: Acute Assessment and Plan: Diagnosed with RSV earlier this month. (4) History of stroke: Code(s): Z86.73 - Personal history of transient ischemic attack (TIA), and cerebral infarction without residual deficits Status: Acute Assessment and Plan: Stroke in 2019, treated with aspirin and Brilinta. Brilinta stopped in light of addition of Eliquis. May need to stop aspirin to if she has bleeding issues. (5) History of fall: Code(s): Z91.81 - History of falling Status: Acute Assessment and Plan: Walks with a walker, has had a couple falls. Fall precautions (6) Aortic valve stenosis, nonrheumatic: Code(s): I35.0 - Nonrheumatic aortic (valve) stenosis Status: Acute Assessment and Plan: Mild aortic stenosis noted. Recommend follow-up echo in 1-2 years. (7) Hypertension: Code(s): I10 - Essential (primary) hypertension Status: Acute Assessment and Plan: History of hypertension, blood pressure running mildly elevated on this admission. Outpatient follow-up Subjective Date/time seen: 02/25/22 08:38 Cardiology follow up for atrial fibrillation Continues to feel well. Remains in sinus rhythm. No complaints at this time. Review of Systems Constitutional: Constitutional: Denies fever(s) Eyes: Eyes: Reports no additional eye complaints ENT: Denies epistaxis Cardiovascular: Cardiovascular: Denies chest pain, Reports pedal edema, Reports leg edema, Denies lightheadedness, Reports dyspnea and Reports dyspnea on exertion Respiratory: Respiratory: Reports chest congestion, Reports cough, Reports dyspnea and Reports dyspnea on exertion Gastrointestinal: Gastrointestinal: Reports abdominal pain, Denies hematochezia and Reports constipation (Has not responded to laxatives so far) Genitourinary: Genitourinary: Denies hematuria Musculoskeletal: Musculoskeletal: Reports no additional musculoskeletal complaints and Reports myalgias Integumentary/Breasts: Skin/Breast: Reports system reviewed and no additional complaints, except as docu Neurologic: Reports system reviewed and no additional complaints, except as documented, Reports behavioral changes (Restless since she has been sick) and Reports confusion Psychiatric: Psychiatric: Reports behavioral changes (Restless since she has been sick) and Reports confusion Exam Const: General: cooperative, healthy appearing, comfortable, confusion and uncomfortable Orientation/consciousness: oriented to person, patient oriented x3 and confusion HENMT: Mouth: Yes dry mucous membranes Eyes: EOM: EOMs intact bilaterally Neck: Neck: supple and no JVD Thyroid: thyroid normal Resp: Effort & Inspection: normal respiratory effort Auscultation: clear to auscultation bilaterally and diminished lung sounds Cardio: Rate: regula
[2022-02-25] MEDS: IPRATROPIUM BR 0.02% INH SOLN 0.5 MG/2.5 ML VIAL INHALATION ×2 (09:55→13:59)
--- NOTE | 2022-02-25 10:09 | PCNWS ---
Weekly nutritional screen. Patient is tolerating current diet with adequate intake. No weight loss reported. No nutritional needs at this time.
--- NOTE | 2022-02-25 16:09 | ECG_ITS ---
Measurements Intervals [place] Rate: 77 P: 78 MN: 167 QRS: 0 QRSD: 82 T: 75 QT: 406 QTc: 462 Interpretive Statements SINUS RHYTHM NONSPECIFIC T-WAVE ABNORMALITY COMPARED TO ECG 02/24/2022 11:01:10 NO SIGNIFICANT CHANGES Electronically Signed On 02-25-2022 18:15:36 MARKETING FINANCIAL ANALYST by Cruz Fontanez M.D.
--- NOTE | 2022-02-25 17:05 | PM.DS ---
DS: Admitting Diagnosis Discharge Date 02/25/2022 Admitting Diagnosis chest pain abdominal DS: Discharge Diagnosis Discharge Diagnosis (1) Sepsis: Qualifiers: Sepsis acute organ dysfunction status: without acute organ dysfunction Sepsis type: sepsis due to unspecified organism Qualified Code(s): A41.9 - Sepsis, unspecified organism Code(s): A41.9 - Sepsis, unspecified organism Status: Acute (2) Pancolitis: Code(s): K51.00 - Ulcerative (chronic) pancolitis without complications Status: Acute (3) Community acquired pneumonia: Qualifiers: Laterality: unspecified laterality Qualified Code(s): J18.9 - Pneumonia, unspecified organism Code(s): J18.9 - Pneumonia, unspecified organism Status: Acute (4) RSV (respiratory syncytial virus infection): Code(s): B33.8 - Other specified viral diseases Status: Acute DS: Summary Hospital Course Reason for hospitalization: Chief Complaint: ?chest pain and abdominal pain Narrative: 87-year-old female past medical history of essential hypertension, allergic rhinitis, hyperlipidemia and recent diagnosis of RSV who presented to the ER from assisted living due to complaints of chest pain and abdominal pain.? The patient indicates her left chest was hurting but when palpated the patient's pain seeing some be more in the left upper abdomen.? Although the patient does cry out when staff touches her abdomen she also grabs at staff and shoves them away if they touch her chest or neck.? Although the patient is alert oriented to place name and name of the current president she initially stated the wrong month and then corrected to the right month when she was told that she stated the wrong month but thought the year was 2001.? Dust the patient's daughter provided the majority of the history.? The family felt the patient was having more shortness of breath starting yesterday.? She had also complained of chest pain over the left lower chest that was increased with movement.? She stated that the pain was worse with every little bump.? She has also been having some cough.? She was evaluated by her primary care physician today was diagnosed with pneumonia and started on a Z-[place].? She has taken 1 dose of the azithromycin before coming in.? She has not had any fevers or chills nausea or vomiting.? She has had overall poor oral intake for the last week.? When the patient was brought to the ER on the she was having pain in her right hip leg and thigh.? On that day she had 3 below out diarrheal stools.? The daughter reports that is not completely unusual for the patient to have episodes of diarrhea and bowel incontinence but the episodes have decreased since the patient moved to assisted living.? The patient actually has not had any bowel movements for the last couple of days.? She has chronic bladder incontinence.? The patient is writhing around in bed and stating that she is done. Hospital Course: Plan Sepsis RSV pneumonia Pancolitis? Treated with Zosyn now stopped AFib with RVR 02/17/2022 converted back to sinus rhythm already? and remains on sinus rhythm. on cardizem oral now. off cardizem gtt. ? Converted back to AFib with RVR 02/20/2022 back on Cardizem drip.? Cardiology consulted.? ? Is being loaded with sotalol now.? QTC a elevated and hence does lowered. Anticoagulation required as chads Vasc score is high.? Will stop her Brilinta since she is going to be on long-term anticoagulation now.? Eliquis? has been restarted Hypoxic respiratory failure needing nasal cannula oxygen supplementation this has resolved Constipation no bm since past 10 days: will give suppository. on colace and senna already. ? X-ray with moderate amount of stool.? Suppository did not help.? enema x 1, with no further bm. suppository this am.? received mom.? Finally had bowel movement low back pain: will get xray. morphine iv prn. tylenol prn. Large sliding hiatal hernia Hypertension
[2022-02-25 18:31] LABS: EDCOVIDSCREEN Negative (Negative)
== END 2022-02-25 18:15 | DRG 871 ==
LOC: ANHED 06:48 → ANH3MEDSUR 07:39 → ANH3MED 14:20 → ANHIMU 02-18 00:43 → ANH3MEDSUR 02-26 09:06 → ANHIMU 02-26 09:06
PROVIDERS: Internal Medicine; Admitting Provider Internal Medicine; Emergency Provider Emergency Medicine; Visit Provider Family Medicine
DX: A41.89 Other specified sepsis (principal); J12.1 Respiratory syncytial virus pneumonia; J96.01 Acute respiratory failure with hypoxia; K51.00 Ulcerative (chronic) pancolitis without complications; Z20.822 Contact with and (suspected) exposure to COVID-19; I48.0 Paroxysmal atrial fibrillation; F03.90 Unspecified dementia, unspecified severity, without behavioral disturbance, psychotic disturbance, mood disturbance, and anxiety; E78.2 Mixed hyperlipidemia; I35.0 Nonrheumatic aortic (valve) stenosis; K44.9 Diaphragmatic hernia without obstruction or gangrene; R32 Unspecified urinary incontinence; I10 Essential (primary) hypertension; M54.50 Low back pain, unspecified; K59.00 Constipation, unspecified; E66.9 Obesity, unspecified; Z68.33 Body mass index [BMI] 33.0-33.9, adult; Z86.73 Personal history of transient ischemic attack (TIA), and cerebral infarction without residual deficits; Z91.81 History of falling; Z90.49 Acquired absence of other specified parts of digestive tract; Z90.710 Acquired absence of both cervix and uterus; Z90.722 Acquired absence of ovaries, bilateral; Z98.42 Cataract extraction status, left eye; Z98.41 Cataract extraction status, right eye; Z96.1 Presence of intraocular lens
CPT/HCPCS: 36415; 71045; 74018; 74176; 80053; 82948; 83605; 83735; 83880; 84443; 84484; 85025; 85380; 85610; 85730; 87040; 87070; 87205; 87426; 87637; 93005; 93306; 94640; 96361; 96365; 96366; 96372; 96375; 96376; 97110; 97116; 97161; 97165; 97530; 97535; 99285; A9270; C9803; G0378; J0131; J1160; J1650; J1940; J2270; J2543; J7030

== ENCOUNTER 2022-03-19 16:38 | Emergency (ER) | payer MEDICARE, SELFPAY ==
--- NOTE | ~2022-03-19 | CT_ITS ---
EXAMINATION: CT cervical spine wo con DATE: 03/19/2022 17:42 INDICATION: Fall. Head injury, right side. Patient on anticoagulant therapy TECHNIQUE: Computed tomography (CT) of the cervical spine was performed without intravenous contrast. Automated exposure control and iterative reconstruction technique were employed. Exam dose: 257.21 mGy-cm total exam DLP. COMPARISON: None FINDINGS: No recent fracture or dislocation or locked facet or prevertebral soft tissue swelling of t he cervical spine is noted. There is minimal anterolisthesis at C2-3, C5-6, C6-7 and C7-T1. Moderate degenerative disease at C2-3 and severe degenerative disc disease/fusion at C3-5. Mild degenerative disc disease at C5-6. Moderately severe degenerative disc disease at C6-7. There is fusion at the left apophyseal joints from C2 through C5, severe degenerative disease at the remaining left apophyseal joints. There is degenerative change at the right apophyseal joints as well . IMPRESSION: Prominent cervical spondylosis; no fracture or dislocation or locked facet Reviewed, dictated and finalized at [facility]. Reviewed, dictated and finalized at location [facility]. ER CLAM IMPRESSION: Prominent cervical spondylosis; no fracture or dislocation or lock ed facet
--- NOTE | ~2022-03-19 | XR_ITS ---
XR hip BI 2V w AP pelvis DATE: 03/19/2022 17:38 INDICATION: Fall today. Pain with movement TECHNIQUE: AP pelvis. AP and lateral views of each hip. COMPARISON: 02/16/2022 CT abdomen pelvis 02/06/2022 right hip FINDINGS: Prominent degenerative disc disease at L4-5 and particularly L5-S1. There is levoscoliosis of lumbar spine. The pubic symphysis and sacroiliac joints are intact. There is bony bridging across the superior aspect of the pubic symphysis. There is a healing virtually nondisplaced fracture of the right inferior pubic ramus with some callu s formation. No apparent fracture or dislocation of either hip is noted. There is osteoarthritis at both hips. If there is concern for hip fracture, consider CT pelvis and hip examination for more definitive eval uation. IMPRESSION: Healing right inferior pubic ramus fracture Bilateral hip osteoarthritis Dextro scoliosis and multilevel degenerative disc disease of the lumbar spine. Reviewed, dictated and finalized at location [facility]. CUTTER
--- NOTE | ~2022-03-19 | XR_ITS ---
XR chest 2V DATE: 03/19/2022 17:37 INDICATION: Fall today. History of aortic valve stenosis, hypertension. TECHNIQUE: AP and lateral views COMPARISON: 02/18/2022 portable AP chest FINDINGS: Cardiomegaly. There is extensive thoracic and abdominal aortic calcification without appare nt aneurysm. No hilar or mediastinal enlargement. No pulmonary infiltrate or consolidation, pleural effusion or pulmonary vascular congestion or pneumo thorax. Osteopenia.. Old healed left surgical neck humeral fracture. DEXA scoliosis and degenerative spurring of the thoracic spine. Surgical clips overlying upper abdomen on lateral view, consistent with cholecystectomy as documented on 02/16/2022 CT abdomen pelvis examination. IMPRESSION: Cardiomegaly, aortic atherosclerosis No active pulmonary disease Osteopenia Reviewed, dictated and finalized at location [facility]. N RESOURCES FILE CLERK
--- NOTE | ~2022-03-19 | CT_ITS ---
EXAMINATION: CT brain wo con DATE: 03/19/2022 17:42 INDICATION: Fall. Head injury, right side. Patient is on anticoagulant therapy. TECHNIQUE: Computed tomography (CT) of the head was performed without intravenous contrast. The mA wa s adjusted according to patient size. Iterative reconstruction technique was employed. Exam dose: 60 5.33 mGy-cm total exam DLP. COMPARISON: None FINDINGS: Prominent bilateral vertebral artery and carotid siphon internal carotid artery calcificati ons. There is nonspecific diminished attenuation of the cerebral white matter, likely due to chronic small vessel ischemic changes. There is chronic high left parietal encephalomalacia likely due to an old cerebrovascular accident. Benign bilateral basal ganglia calcification. No intracranial mass lesion or hemorrhage, midline shift or mass effect effect is noted. No subdural or epidural hematoma. There is moderately prominent mucoperiosteal thickening of both maxillary sinuses. Bilateral nasal an tral windows. No fracture or bone destruction of the cranial vault is detected. 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 Reviewed, dictated and finalized at location A. 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
[2022-03-19 16:44] VITALS: BP 175/64; PULSE 84; RESP 18; TEMP 36.1; O2SAT 99
--- NOTE | 2022-03-19 16:53 | ED.GENADULT ---
HPI - General Adult General Chief complaint: Head Injury Stated complaint: head injury, takes blood thinners Time Seen by Provider: 03/19/22 16:52 Source: patient, family and RN notes reviewed Mode of arrival: ambulatory Limitations: no limitations History of Present Illness HPI narrative: Patient is an 87-year-old female who presents ED with report of head injury. Patient is a resident of the [facility]. Per facility report, she was talking with the nurses at the nurses station when she had a witnessed fall. Patient attempted to sit down in a chair and missed the chair, falling and hitting her right-sided head against the door. No LOC. Family was then contacted to bring the patient here. Son present at bedside and confirmed report of fall. Patient has been ambulatory since the fall. She is on Eliquis due to history of atrial fibrillation. She denies any pain currently. Denies neck pain, back pain, headache, vision changes, dizziness, lightheadedness, chest pain, difficulty breathing, prodromal symptoms prior to the fall. Related Data Home Medications Medication Instructions Recorded Confirmed albuterol sulfate 90 mcg/actuation 1 inh inhalation Q6H PRN Allergy 02/16/22 02/16/22 aerosol inhaler Symptoms ascorbate [id number]-rzuzldqp-noa 600 ea PO DAILY 02/16/22 02/16/22 1,000 mg oral powder effervescent pakt cetirizine 10 mg tablet 10 mg PO BID 02/16/22 02/16/22 dihydroxyaluminum sodium carb 334 500 mg PO BID PRN reflux 02/16/22 02/16/22 mg chewable tablet melatonin 10 mg capsule 10 mg PO HS 02/16/22 02/16/22 melatonin 5 mg tablet 10 mg PO HS sleep 02/16/22 02/16/22 montelukast 10 mg tablet 10 mg PO HS 02/16/22 02/16/22 [id number]-[id number] 200 mcg-vit K 100 1 cap PO DAILY 02/16/22 02/16/22 mcg-lycop 500 [id number] capsule (Daily Multivitamin) omeprazole 20 mg capsule,delayed 20 mg PO DAILY 02/16/22 02/16/22 release sennosides 8.6 mg tablet 8.6 mg PO DAILY PRN Constipation 02/16/22 02/16/22 Allergies Allergy/AdvReac Type Severity Reaction Status Date / Time atorvastatin Allergy Itching Verified 03/19/22 16:55 chlordiazepoxide Allergy Itching Verified 03/19/22 16:55 [From Librax (with methscopolamine)] cholestyramine Allergy Itching Verified 02/16/22 01:29 clopidogrel [From Plavix] Allergy Itching Verified 03/19/22 16:55 dicyclomine Allergy Itching Verified 03/19/22 16:55 fenofibrate Allergy Itching Verified 03/19/22 16:55 Latex, Natural Rubber Allergy Blister Verified 03/19/22 16:55 lidocaine Allergy Itching Verified 03/19/22 16:55 losartan Allergy Itching Verified 03/19/22 16:55 meloxicam Allergy Itching Verified 03/19/22 16:55 neomycin Allergy Rash Verified 03/19/22 16:55 nortriptyline [From Pamelor] Allergy Itching Verified 03/19/22 16:55 procaine Allergy Itching Verified 03/19/22 16:55 scopolamine Allergy Itching Verified 03/19/22 16:55 [From Librax (with methscopolamine)] triamcinolone Allergy Itching Verified 03/19/22 16:55 betamethasone AdvReac Itching Verified 03/19/22 16:55 enoxaparin AdvReac Headache Verified 03/19/22 16:55 lisinopril AdvReac Cough Verified 03/19/22 16:55 Review of Systems Review of Systems: CONSTITUTIONAL: Denies fever, chills, or sweats. EYES: Denies visual changes. CARDIOVASCULAR: Denies chest pain, palpitations, or edema. RESPIRATORY: Denies cough or dyspnea. GASTROINTESTINAL: Denies abdominal pain, nausea, vomiting, or diarrhea. MUSCULOSKELETAL: Denies back pain, neck pain. NEUROLOGIC: See HPI. All systems reviewed & are unremarkable except as noted in HPI and below PMFSH Past Medical History Medical History Allergic rhinitis Aortic valve stenosis, nonrheumatic 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, treated with aspirin and Brilinta Dementia Fracture of left shoulder (~2012) History of fall H
== END 2022-03-19 19:23 ==
PROVIDERS: Emergency Provider Physician Assistant
DX: S09.90XA Unspecified injury of head, initial encounter (principal); I48.0 Paroxysmal atrial fibrillation; I35.0 Nonrheumatic aortic (valve) stenosis; F03.90 Unspecified dementia, unspecified severity, without behavioral disturbance, psychotic disturbance, mood disturbance, and anxiety; I10 Essential (primary) hypertension; E78.2 Mixed hyperlipidemia; Z86.73 Personal history of transient ischemic attack (TIA), and cerebral infarction without residual deficits; Z90.710 Acquired absence of both cervix and uterus; Z90.722 Acquired absence of ovaries, bilateral; Z90.79 Acquired absence of other genital organ(s); Z98.42 Cataract extraction status, left eye; Z98.41 Cataract extraction status, right eye; Z96.1 Presence of intraocular lens; Z79.01 Long term (current) use of anticoagulants; M85.80 Other specified disorders of bone density and structure, unspecified site; M16.0 Bilateral primary osteoarthritis of hip; M51.36 Other intervertebral disc degeneration, lumbar region; I67.2 Cerebral atherosclerosis; M47.812 Spondylosis without myelopathy or radiculopathy, cervical region; W07.XXXA Fall from chair, initial encounter
CPT/HCPCS: 70450; 71046; 72125; 73521; 99284

== ENCOUNTER 2022-06-06 12:44 | Emergency (ER) | payer MEDICARE, SELFPAY ==
[2022-06-06] VITALS (7 sets, daily range): BP systolic 137–170; BP diastolic 75–90; PULSE 85–90; RESP 18–28; TEMP 37.2; O2SAT 97–100
--- NOTE | ~2022-06-06 | CT_ITS ---
EXAMINATION: CT brain wo con DATE: 06/06/2022 13:52 INDICATION: Head injury. TECHNIQUE: Computed tomography (CT) of the head was performed without intravenous contrast. The mA wa s adjusted according to patient size. Iterative reconstruction technique was employed. The dose-lengt h product was 605.33 mGy-cm. COMPARISON: Head CT 03/19/2022 FINDINGS: There are scattered areas of low attenuation in the cerebral white matter. There is an acut e subdural hematoma at the right cerebellar tentorium with maximum thickness of 5 mm. There are old i nfarcts in the left frontal and parietal lobes. There is no acute infarction or abnormal intracranial mass lesion. The ventricles are normal in size. There are likely changes of ocular lens replacement surgeries. There is mucosal thickening in the paranasal sinuses. There is thickening sclerosis of the love of the ethmoid and maxillary sinuses, consistent with chronic sinusitis. There are bilateral m astoid effusions. There is right posterior superior scalp soft tissue swelling. IMPRESSION: 1. Small acute subdural hematoma at the right cerebellar tentorium. I called this result to Dr. Varela on. 2. Old infarcts in the left frontal and parietal lobes. 3. Stable moderate nonspecific cerebral white matter disease, which likely represents chronic small v essel ischemic disease. Reviewed, dictated and finalized at location A. IMPRESSION: 1. Small acute subdural hematoma at the right cerebellar tentorium. I called th is result to Dr. Andrade. 2. Old infarcts in the left frontal and parietal lobes. 3. Stable moderate nonspecific cerebral white matter disease, which likely repr esents chronic small vessel ischemic disease.
--- NOTE | ~2022-06-06 | XR_ITS ---
EXAMINATION: XR chest 1V portable Exam Date/Time: 06/06/2022 14:38 CDT HISTORY: fall Comparison: 03/19/2022. RESULT: Lines, tubes, and devices: Cholecystectomy clips. Lungs and pleura: Chronic left lateral costophrenic angle blunting. Streaky bibasilar opacities in t he lung bases, right greater than left, likely scar and atelectasis. Severe senescent change. Cardiomediastinal silhouette: Stable. Other: No acute osseous or upper abdominal finding. IMPRESSION: No acute cardiopulmonary process. Reviewed, dictated and finalized at location K.
--- NOTE | ~2022-06-06 | CT_ITS ---
EXAMINATION: CT cervical spine wo con DATE: 06/06/2022 14:49 INDICATION: glf, HI, subdural TECHNIQUE: Computed tomography (CT) of the cervical spine was performed without intravenous contrast. Automated exposure control and iterative reconstruction technique were employed. The dose-length pro duct was 162.58 mGy-cm. COMPARISON: 03/19/2022. FINDINGS: Vertebral Body Alignment: Intact. Stable multilevel grade 1 listheses. Craniocervical and atlantoaxial alignment: Moderate degenerative change. Alignment intact. Osseous structures/fracture: No evidence of a lytic or blastic process in the visualized spine. Multi level facet fusions. No evidence of acute fracture. Bilateral mastoid fluid. Cervical soft tissues: The paraspinal soft tissues planes are maintained. Right apical pleural scarri ng. 2.6 cm heterogeneous left thyroid nodule. Degenerative changes: Degenerative changes, without severe neural foraminal or central canal narrowin g. IMPRESSION: No acute fracture or traumatic malalignment in the cervical spine. 2.6 cm left thyroid nodule, recomm end outpatient thyroid ultrasound for further characterization. Reviewed, dictated and finalized at location K. IMPRESSION: No acute fracture or traumatic malalignment in the cervical spine. 2.6 cm left thyroid nodule, recommend outpatient thyroid ultrasound for further characteriz ation.
--- NOTE | 2022-06-06 14:37 | ED.FALL ---
HPI - Fall General Chief Complaint: Fall <JOHNNY Beasley Last Filed: 06/06/22 17:13> Stated Complaint: fall with head injury <JOHNNY Beasley Last Filed: 06/06/22 17:13> Time Seen by Provider: 06/06/22 14:30 <JOHNNY Beasley Last Filed: 06/06/22 17:13> Source: patient, family and old records reviewed <JOHNNY Beasley Last Filed: 06/06/22 17:13> Mode of arrival: EMS <JOHNNY Beasley Last Filed: 06/06/22 17:13> Limitations: dementia <JOHNNY Beasley Last Filed: 06/06/22 17:13> History of Present Illness HPI Narrative: Patient is an 87-year-old female, with past medical history of dementia, hypertension, hyperlipidemia, atrial fibrillation, who presents to the ED with her son with report of a fall. Patient is a resident of [facility] living [facility]. Per son at bedside, patient had an unwitnessed ground-level fall today. He reports it appeared as though patient was walking back into her room when she fell in the doorway. Patient does not remember exactly how the fall occurred. She believes she tripped. She denied feeling dizzy. She did hit her head, but does not think she lost consciousness. She complains of pain to her head, but otherwise denies other areas of pain. Denies neck pain, back pain, abdominal pain, chest pain, difficulty breathing. Denies vision changes. Denies weakness. Patient is on Eliquis 5 mg twice daily due to her history of atrial fibrillation. Patient is a full code. <JOHNNY Beasley Last Filed: 06/06/22 17:13> Related Data Home Medications: Home Medications Medication Instructions Recorded Confirmed albuterol sulfate 90 mcg/actuation 1 inh inhalation Q6H PRN Allergy 02/16/22 02/16/22 aerosol inhaler Symptoms ascorbate buwqncu-qmuoyymm-mor 600 ea PO DAILY 02/16/22 02/16/22 1,000 mg oral powder effervescent pakt cetirizine 10 mg tablet 10 mg PO BID 02/16/22 02/16/22 dihydroxyaluminum sodium carb 334 500 mg PO BID PRN reflux 02/16/22 02/16/22 mg chewable tablet melatonin 10 mg capsule 10 mg PO HS 02/16/22 02/16/22 melatonin 5 mg tablet 10 mg PO HS sleep 02/16/22 02/16/22 montelukast 10 mg tablet 10 mg PO HS 02/16/22 02/16/22 jiqhednt-stw-IH 200 mcg-vit K 100 1 cap PO DAILY 02/16/22 02/16/22 mcg-lycop 500 [id number] capsule (Daily Multivitamin) omeprazole 20 mg capsule,delayed 20 mg PO DAILY 02/16/22 02/16/22 release sennosides 8.6 mg tablet 8.6 mg PO DAILY PRN Constipation 02/16/22 02/16/22 <Lindsey Iqbal PA-C - Last Filed: 06/06/22 17:13> Allergies/Adverse Reactions: Allergies Allergy/AdvReac Type Severity Reaction Status Date / Time atorvastatin Allergy Itching Verified 06/06/22 14:37 chlordiazepoxide Allergy Itching Verified 06/06/22 14:37 [From Librax (with methscopolamine)] cholestyramine Allergy Itching Verified 06/06/22 14:37 clopidogrel [From Plavix] Allergy Itching Verified 06/06/22 14:37 dicyclomine Allergy Itching Verified 06/06/22 14:37 fenofibrate Allergy Itching Verified 06/06/22 14:37 Latex, Natural Rubber Allergy Blister Verified 06/06/22 14:37 lidocaine Allergy Itching Verified 06/06/22 14:37 losartan Allergy Itching Verified 06/06/22 14:37 meloxicam Allergy Itching Verified 06/06/22 14:37 neomycin Allergy Rash Verified 06/06/22 14:37 nortriptyline [From Pamelor] Allergy Itching Verified 06/06/22 14:37 procaine Allergy Itching Verified 06/06/22 14:37 scopolamine Allergy Itching Verified 06/06/22 14:37 [From Librax (with methscopolamine)] triamcinolone Allergy Itching Verified 06/06/22 14:37 betamethasone AdvReac Itching Verified 06/06/22 14:37 enoxaparin AdvReac Headache Verified 06/06/22 14:37 lisinopril AdvReac Cough Verified 06/06/22 14:37 <Lindsey Iqbal PA-C - Last Filed: 06/06/22 17:13> Review of Systems Review of Systems: CONSTITUTIONAL
[2022-06-06 14:39] LABS: Basophils Absolute Auto 0.1 K/mm3 (0.0-0.1); Basophils Percent Auto 0.4 % (0.2-1.2); Eosinophils Absolute Auto 0.2 K/mm3 (0-0.3); Eosinophils Percent Auto 1.5 % (0-4.4); Hemoglobin 14.3 g/dL (12.0-15.0); Immature Granulocyte Absolute 0.04 K/mm3 (0.00-0.031); Immature Granulocyte Percent A 0.3 % (0-0.5); Lymphocytes Absolute Auto 2.08 K/mm3 (0.9-3.2); Lymphocytes Percent Auto 16.2 % (18.3-44.2); Mean Corpuscular HGB Conc 32.5 g/dl (32-36); Mean Corpuscular Hemoglobin 27.7 pg (26-34); Mean Corpuscular Volume 85.3 fl (80-100); Mean Platelet Volume 10.2 fl (7.4-10.4); Monocytes Absolute Auto 1.1 K/mm3 (0.1-0.6); Monocytes Percent Auto 8.6 % (2.6-8.5); Neutrophils Absolute Auto 9.4 K/mm3 (1.3-6.7); Platelet Count Result 294 k/mm3 (150-375); Red Blood Count 5.16 M/mm3 (4.2-5.4); Red Cell Distribution Width 14.6 % (11.5-14.5); White Blood Count 12.9 K/mm3 (4.5-10.0)
[2022-06-06 14:49] LABS: Alanine Aminotransferase 24 U/L (6-35); Albumin Level 4.9 g/dL (3.5-5.1); Alkaline Phosphatase 99 U/L (38-126); Anion Gap 8 mmol/L (8-16); Aspartate Amino Transferase 30 U/L (14-36); Bilirubin,Total 0.7 mg/dL (0.2-1.3); Blood Urea Nitrogen 19 mg/dL (7-17); Calcium 9.7 mg/dL (8.4-10.2); Carbon Dioxide 32 mmol/L (22-30); Chloride 100 mmol/L (98-107); Estimated CRCL calculation 55 ml/min; Estimated Glomerular Filt Rate > 60; Glucose 126 mg/dL (65-110); Potassium 3.9 mmol/L (3.4-5.0); Sodium 140 mmol/L (137-145)
[2022-06-06 14:54] LABS: INR 1.1; Partial Thromboplastin Time 33.9 SECONDS (22.3-36.8); Prothrombin Time 14.2 Seconds (11.1-14.7)
[2022-06-06] MEDS: LABETALOL HCL INJ 100 MG/20 ML VIAL 20 MG IV PUSH (15:28)
== END 2022-06-06 15:30 | disposition short-term general hospital (02) ==
PROVIDERS: Emergency Medicine; Emergency Provider Physician Assistant
DX: S06.5X0A Traumatic subdural hemorrhage without loss of consciousness, initial encounter (principal); F03.90 Unspecified dementia, unspecified severity, without behavioral disturbance, psychotic disturbance, mood disturbance, and anxiety; E78.2 Mixed hyperlipidemia; I48.0 Paroxysmal atrial fibrillation; Z86.73 Personal history of transient ischemic attack (TIA), and cerebral infarction without residual deficits; Z79.01 Long term (current) use of anticoagulants; W01.0XXA Fall on same level from slipping, tripping and stumbling without subsequent striking against object, initial encounter; Y92.092 Bedroom in other non-institutional residence as the place of occurrence of the external cause
CPT/HCPCS: 36415; 70450; 71045; 72125; 80053; 85025; 85610; 85730; 96365; 96375; 99285; J7168

== ENCOUNTER 2023-02-25 08:39 | Inpatient (IN) | payer MEDICARE, SELFPAY ==
[2023-02-25] VITALS (44 sets, daily range): BP systolic 89–148; BP diastolic 57–91; PULSE 72–169; RESP 15–50; TEMP 36.5–36.8; O2SAT 92–100
--- NOTE | ~2023-02-25 | CT_ITS ---
EXAMINATION: CT brain wo con INDICATION: Altered mental status COMPARISON: 06/06/2022 TECHNIQUE: Standard unenhanced head CT. The dose-length product (DLP) was 605.33 mGy-cm. The mA was a djusted according to patient size. Iterative reconstruction technique was employed. FINDINGS: No acute intraparenchymal hemorrhage. No evidence of mass lesion. No evidence of acute infa rction. There are old infarcts of the left frontal and parietal lobes. There is mild periventricular and subcortical hypodensity probably related to small vessel ischemic disease. There is mild prominen ce of the sulci and ventricles related to cerebral atrophy. Intracranial calcified cerebral atheroscl erosis is noted. No extra-axial collections. No mass effect or midline shift. Changes in the globes a re likely from ocular lens surgery. There is mild mucosal thickening of the paranasal sinuses. IMPRESSION: 1. Areas of prior infarction without acute intracranial abnormality. 2. Age related findings. Reviewed, dictated and finalized at location L. LEAD
--- NOTE | ~2023-02-25 | CT_ITS ---
EXAMINATION: CT brain wo con DATE: 02/26/2023 16:10 INDICATION: Change in pupil size TECHNIQUE: Computed tomography (CT) of the head was performed without intravenous contrast. The mA wa s adjusted according to patient size. Iterative reconstruction technique was employed. Exam dose: 60 5.33 mGy-cm total exam DLP. COMPARISON: 02/25/2023 CT brain FINDINGS: Bilateral vertebral artery, basilar artery and carotid siphon internal carotid artery calci fications. There is a chronic watershed infarct high over the left parietal convexity. There is nonspecific diminished attenuation of the cerebral white matter, likely due to chronic small vessel ischemic changes. No intracranial mass lesion or hemorrhage or recent cerebrovascular accident is detected. No midline shift or mass effect. There is moderately prominent cerebellar and central and cortical cerebral atrophy. No subdural or epidural hematoma is detected. Bilateral lens replacement. No fracture or bone destruction of the cranial vault. The mastoid air cells and included paranasal sinuses are unremarkable except for evidence of apparent bilateral nasal antral windows. IMPRESSION: Cerebral atherosclerosis and chronic small vessel ischemic changes of the cerebral white matter Chronic watershed infarct on the left Interval resolution of small acute right tentorial subdural hematoma since June 06, 2022 Reviewed, dictated and finalized at Location A. Reviewed, dictated and finalized at location A. O CHECKER IMPRESSION: Cerebral atherosclerosis and chronic small vessel ischemic changes of the cerebral white matter Chronic watershed infarct on the left Interval resolution of small acute right tentorial subdural hematoma since 2022
--- NOTE | ~2023-02-25 | XR_ITS ---
XR chest 1V portable DATE: 02/28/2023 05:48 INDICATION: Shortness of breath TECHNIQUE: Portable AP chest on 02/24/2023 at 0522 hours COMPARISON: 02/26/2023 portable AP chest at 1553 hours 02/25/2023 CT pulmonary scan FINDINGS: Patchy bilateral mid and lower lung infiltrates are suggested, which may be due to pulmonar y edema, pneumonia or aspiration. Cardiomegaly. Aortic calcification. Diffuse osteopenia. IMPRESSION: Patchy bilateral pulmonary infiltrates in the colon differential diagnosis includes bilat eral pneumonia, pulmonary edema, aspiration Reviewed, dictated and finalized at location A. JACK WORKER IMPRESSION: Patchy bilateral pulmonary infiltrates in the colon differential di agnosis includes bilateral pneumonia, pulmonary edema, aspiration
--- NOTE | ~2023-02-25 | CT_ITS ---
EXAMINATION: CTA chest PE protocol DATE: 02/25/2023 11:32 INDICATION: Hypoxia and tachycardia TECHNIQUE: Computed tomography angiography (CTA) of the chest was performed with 100 mL Omnipaque-350 intravenous contrast timed to evaluate the pulmonary arteries. Coronal maximum intensity projection 3D-reconstructions were created by the technologist. The dose-length product (DLP) was 492.55 mGy-cm. Automated exposure control and iterative reconstruction technique were employed. COMPARISON: None. FINDINGS: The pulmonary arteries are well-opacified. No pulmonary embolism is identified. Respiratory motion artifact somewhat limits the examination. There are airspace opacities of the right middle an d lower lobes. Minimal airspace opacities are also seen in the left lower lobe. No pleural effusion o r pneumothorax. The heart size is normal. There are healing lateral fractures of the right fifth and sixth ribs. There appears to 13 mm mass of the right breast. There is a small sliding hiatal hernia. There are bridging osteophytes at multiple levels in the spine, consistent with diffuse idiopathic sk eletal hyperostosis (DISH). Punctate calcifications in otherwise normal appearing liver and spleen li debby represent healed granulomatous disease. IMPRESSION: 1. No pulmonary embolus identified, sensitivity limited by respiratory motion. 2. Airspace opacities of the lower lobes and right middle lobe, consistent with pneumonia. Consider f ollowup chest CT in six weeks if symptoms persist after appropriate therapy or if the patient is at h igh risk for malignancy. 3. Small right breast mass. Nonemergent diagnostic mammogram and possible ultrasound would be recomme nded if further evaluation is desired. Reviewed, dictated and finalized at location L. Y SPREADER HELPER IMPRESSION: 1. No pulmonary embolus identified, sensitivity limited by respiratory motion. 2. Airspace opacities of the lower lobes and right middle lobe, consistent with pneumonia. Consider followup chest CT in six weeks if symptoms persist after a ppropriate therapy or if the patient is at high risk for malignancy. 3. Small right breast mass. Nonemergent diagnostic mammogram and possible ultra sound would be recommended if further evaluation is desired.
--- NOTE | ~2023-02-25 | XR_ITS ---
XR abdomen gastric tube insert INDICATION: Evaluate NG tube position. TECHNIQUE: Limited KUB perform for evaluating NG tube . COMPARISON: No prior studies for comparison. FINDINGS: NG tube tip in the stomach. Visualized bowel gas pattern is unremarkable. IMPRESSION: 1: NG tube tip in the stomach. Reviewed, dictated and finalized at location A. AL MERCHANDISING SPECIALIST
--- NOTE | ~2023-02-25 | XR_ITS ---
Portable chest x-ray Comparison: 06/06/2022 Clinical History: Hypoxia Findings: Probable COPD pattern present. No consolidation or pleural effusion. Cardiomediastinal si lhouette is stable. Bones and soft tissues are unremarkable. Impression: COPD. Reviewed, dictated and finalized at [facility]. K WRITER Impression: COPD.
--- NOTE | ~2023-02-25 | XR_ITS ---
EXAMINATION: XR chest 1V portable INDICATION: Shortness of breath TECHNIQUE: Portable AP chest at 1553 hours COMPARISON: 02/25/2023 FINDINGS: Airspace opacities of the lung bases are again seen. There are new airspace opacities in th e right lung apex. No pleural effusion or pneumothorax. The cardiomediastinal silhouette is stable. IMPRESSION: 1. Airspace opacities of the lung bases and right lung apex, consistent with pneumonia. Reviewed, dictated and finalized at location B. UNITY ENGAGEMENT REPRESENTATIVE IMPRESSION: 1. Airspace opacities of the lung bases and right lung apex, consistent with pn eumonia.
--- NOTE | ~2023-02-25 | CT_ITS ---
EXAMINATION: CTA BRAIN/CAROTID DATE: 02/26/2023 16:16 INDICATION: Change in pupil size TECHNIQUE: Computed tomographic angiography (CTA) of the head and neck was performed with 100 mL Omni paque-350 intravenous contrast. Multiplanar reconstructions and maximum intensity projection 3D-recon structions of the carotid arteries and of the intracranial arteries were created by the technologist on a separate workstation. Automated exposure control and iterative reconstruction technique were em ployed.The dose-length product was 1097.65 mGy-cm. COMPARISON: None. FINDINGS: Carotid arteries: Atherosclerotic calcifications without hemodynamic significant stenosis along the visualized portion of the normal caliber thoracic aorta. Normal variant separate origin of the left vertebral artery whi ch arises directly from the aortic arch. The vertebral arteries are codominant. There is small amount of atherosclerotic plaque with 0% stenosis of the right carotid bulb relative to normal distal arter y lumen diameter (NASCET criteria). There is 25% stenosis of the left carotid bulb relative to normal distal artery lumen diameter. Hazy patient pattern in the bilateral upper lungs with groundglass opa cities and smooth septal line thickening consistent with mild pulmonary edema. Visualized superior me diastinum is unremarkable. Multinodular goiter. Severe cervical spondylosis including anterior and le ft-sided posterior fusion at C2-C5. Intracranial arteries Atherosclerotic calcification without hemodynamically significant stenosis at the bilateral carotid b ulbs. The intracranial portion of the right vertebral artery is diffusely significantly smaller than the left vertebral artery however this does not appear to result from atherosclerotic disease. There is a small amount of atherosclerotic plaque without significant stenosis along the larger caliber lef t vertebral artery. There is no hemodynamically significant stenosis in the vertebral, basilar and in ternal carotid arteries. There are no aneurysms identified. The left P1 and bilateral A1 segments are patent. The right posterior cerebral artery supplied via a patent right posterior commuting artery. Cerebral arterial arborization appears symmetric. No abnormally enhancing brain lesions. IMPRESSION: 1. 0% stenosis of the right carotid bulb relative to normal distal artery lumen diameter (NASCET crit eria). 2. 25% stenosis of the left carotid bulb relative to normal distal artery lumen diameter. 3. Nonhemodynamically significant atherosclerotic plaque at the bilateral carotid siphons and along t he dominant left vertebral artery. No aneurysm or hemodynamically significant stenosis. 4. Mild pulmonary edema. Reviewed, dictated and finalized at location A. IVER DISPATCHER IMPRESSION: 1. 0% stenosis of the right carotid bulb relative to normal distal artery lumen diameter (NASCET criteria). 2. 25% stenosis of the left carotid bulb relative to normal distal artery lumen diameter. 3. Nonhemodynamically significant atherosclerotic plaque at the bilateral carot id siphons and along the dominant left vertebral artery. No aneurysm or hemodyn amically significant stenosis. 4. Mild pulmonary edema.
--- NOTE | 2023-02-25 08:46 | ECG_ITS ---
Measurements Intervals [place] Rate: 160 P: 207 AR: 98 QRS: 18 QRSD: 93 T: -12 QT: 286 QTc: 468 Interpretive Statements ATRIAL TACHYCARDIA, SVT VERSUS ATYPICAL ATRIAL FLUTTER NONSPECIFIC ST & T-WAVE ABNORMALITY ABNORMAL RHYTHM ECG COMPARED TO ECG 02/25/2022 16:29:22 SINUS RHYTHM IS REPLACED BY SVT VERSES A FLUTTER Electronically Signed On 02-25-2023 17:44:38 JAW SKINNER by Felix Gao M.D.
--- NOTE | 2023-02-25 09:00 | ED.SOB ---
HPI - SOB/Dyspnea General Chief Complaint: Shortness of Breath/Dyspnea Stated Complaint: resp distress, unwitnessed fall Time Seen by Provider: 02/25/23 08:40 Source: patient Mode of arrival: EMS Limitations: clinical condition History of Present Illness HPI Narrative: 88 yo F presents with SOB/dyspnea. She resides at an assisted living facility and was found down, saturating in the 80s on room air, 90s on CPAP. Otherwise not on oxygen. Related Data Home Medications Medication Instructions Recorded Confirmed albuterol sulfate 90 mcg/actuation 1 inh inhalation Q6H PRN Allergy 02/16/22 03/02/23 aerosol inhaler Symptoms ascorbate apdhktf-alerzdie-sky 1,200 ea PO DAILY 02/16/22 03/02/23 1,000 mg oral powder effervescent pakt cetirizine 10 mg tablet 10 mg PO DAILY PRN Diarrhea 02/16/22 03/02/23 dihydroxyaluminum sodium carb 334 500 mg PO BID PRN reflux 02/16/22 03/02/23 mg chewable tablet melatonin 10 mg capsule 10 mg PO HS 02/16/22 03/02/23 melatonin 5 mg tablet 10 mg PO HS sleep 02/16/22 03/02/23 montelukast 10 mg tablet 10 mg PO HS 02/16/22 03/02/23 wqzfjucn-dwp-JP 200 mcg-vit K 100 1 cap PO DAILY 02/16/22 03/02/23 mcg-lycop 500 fnf-lfwdeh-K75 capsule (Daily Multivitamin) sennosides 8.6 mg tablet 8.6 mg PO DAILY Constipation 02/16/22 03/02/23 amlodipine 5 mg tablet (Norvasc) 10 mg PO QAM 02/25/23 03/02/23 hydrochlorothiazide 12.5 mg capsule 25 mg PO DAILY 02/25/23 03/02/23 loperamide 2 mg capsule 2 mg PO QID PRN Diarrhea 02/25/23 03/02/23 multivitamin 1 tablet PO DAILY 02/25/23 03/02/23 sotalol 80 mg tablet 80 mg PO DAILY 02/25/23 03/02/23 Allergies Allergy/AdvReac Type Severity Reaction Status Date / Time atorvastatin Allergy Itching Verified 02/25/23 15:09 chlordiazepoxide Allergy Itching Verified 02/25/23 15:09 [From Librax (with methscopolamine)] cholestyramine Allergy Itching Verified 02/25/23 15:09 clopidogrel [From Plavix] Allergy Itching Verified 02/25/23 15:09 dicyclomine Allergy Itching Verified 02/25/23 15:09 fenofibrate Allergy Itching Verified 02/25/23 15:09 Latex, Natural Rubber Allergy Blister Verified 02/25/23 15:09 lidocaine Allergy Itching Verified 02/25/23 15:09 losartan Allergy Itching Verified 02/25/23 15:09 meloxicam Allergy Itching Verified 02/25/23 15:09 neomycin Allergy Rash Verified 02/25/23 15:09 nortriptyline [From Pamelor] Allergy Itching Verified 02/25/23 15:09 procaine Allergy Itching Verified 02/25/23 15:09 scopolamine Allergy Itching Verified 02/25/23 15:09 [From Librax (with methscopolamine)] triamcinolone Allergy Itching Verified 02/25/23 15:09 betamethasone AdvReac Itching Verified 02/25/23 15:09 enoxaparin AdvReac Headache Verified 02/25/23 15:09 lisinopril AdvReac Cough Verified 02/25/23 15:09 PMFSH Past Medical History Medical History Allergic rhinitis Aortic valve stenosis, nonrheumatic 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, treated with aspirin and Brilinta Dementia Fracture of left shoulder (~2012) History of fall History of stroke Hypertension Migraine Mixed hyperlipidemia Paroxysmal atrial fibrillation Prurigo nodularis Surgical History Surgical History History of bladder suspension procedure History of Agustin fundoplication (~2005) History of sinus surgery History of total hysterectomy with bilateral salpingo-oophorectomy (BSO) Hx of cholecystectomy Status post cataract extraction of both eyes with insertion of intraocular lens (~2013) Family History Family History Father Heart attack Sibling Breast cancer Mother Sepsis Social History Social History (Updated 03/03/23 @ 13:03 by Elier Mcintosh MD) Social History: Lives in [facility] living in [place]. Nu and Hannah are daughters. Co
[2023-02-25 09:01] LABS: Alveolar/Arterial O2 Gradient 188.8 mmHg; Base Excess ABG 2.8 mEq/l (+/-2.0); Fractional Inspired Oxygen 50 %; HCO3 ABG 25.1 mEq/l (22.0-26.0); Oxygen Content ABG 20.7 %vol (16.0-22.0); Oxygen Saturation ABG 98.9 % (95.0-100.0); Oxyhemoglobin 97.5 % THb (90.0-100.0); PCO2 ABG 32.3 mmHg (35.0-45.0); PO2 ABG 131.4 mmHg (80.0-100.0); PO2 FiO2 Ratio Arterial Blood 2.63 %
[2023-02-25 09:06] LABS: Modified Allen's Test Pass; Site Drawn RIGHT RADIAL; pH ABG 7.509 (7.350-7.450)
[2023-02-25 09:07] LABS: Device NON-INVASIVE VENT; Non-Invasive Expiratory Pressure 6 CMH2O; Non-Invasive Inspiratory Pressure 12 CMH2O; Non-Invasive Vent Rate 18 /MIN
[2023-02-25 09:40] LABS: Basophils Absolute Auto 0.1 K/mm3 (0.0-0.1); Basophils Percent Auto 0.3 % (0.2-1.2); Eosinophils Absolute Auto 0.2 K/mm3 (0-0.3); Eosinophils Percent Auto 1.4 % (0-4.4); Hematocrit 42.9 % (37.0-47.0); Immature Granulocyte Percent A 0.6 % (0-0.5); Lymphocytes Absolute Auto 1.02 K/mm3 (0.9-3.2); Lymphocytes Percent Auto 6.1 % (18.3-44.2); Mean Corpuscular HGB Conc 32.6 g/dl (32-36); Mean Corpuscular Hemoglobin 28.5 pg (26-34); Mean Corpuscular Volume 87.2 fl (80-100); Mean Platelet Volume 10.8 fl (7.4-10.4); Monocytes Absolute Auto 1.1 K/mm3 (0.1-0.6); Monocytes Percent Auto 6.5 % (2.6-8.5); Neutrophils Absolute Auto 14.1 K/mm3 (1.3-6.7); Neutrophils Percent Auto 85.1 % (45.5-73.1); Platelet Count Result 193 k/mm3 (150-375); Red Blood Count 4.92 M/mm3 (4.2-5.4); Red Cell Distribution Width 13.4 % (11.5-14.5); White Blood Count 16.6 K/mm3 (4.5-10.0)
[2023-02-25 09:52] LABS: Acetaminophen < 10 ug/mL (10-30); Alanine Aminotransferase 36 U/L (6-35); Albumin Level 4.6 g/dL (3.5-5.1); Alkaline Phosphatase 80 U/L (38-126); Anion Gap 12 mmol/L (8-16); Aspartate Amino Transferase 65 U/L (14-36); Bilirubin,Total 1.6 mg/dL (0.2-1.3); Blood Urea Nitrogen 19 mg/dL (7-17); Calcium 9.2 mg/dL (8.4-10.2); Carbon Dioxide 27 mmol/L (22-30); Chloride 97 mmol/L (98-107); Estimated CRCL calculation 60 ml/min; Estimated Glomerular Filt Rate > 60; Ethanol < 10 mg/dL (<10); Glucose 170 mg/dL (65-110); Magnesium 1.7 mg/dL (1.6-2.3); Potassium 2.8 mmol/L (3.4-5.0); Salicylate < 1.0 mg/dL (2-20); Sodium 136 mmol/L (137-145)
[2023-02-25 09:55] LABS: Creatine Kinase 904 U/L (30-135)
[2023-02-25 09:59] LABS: D Dimer 2.11 ug/mL (<0.48)
[2023-02-25 10:07] LABS: NT Pro B Type Natriuretic Pept 2200 pg/mL (19.9-100); Troponin I 0.188 ng/mL (0.000-0.034)
[2023-02-25 10:18] LABS: Influenza A QL RT-PCR Positive (Negative); Influenza B QL RT-PCR Negative (Negative); RSV RNA, RT-PCR Negative (Negative); SARS-CoV-2 RNA PCR Negative (Negative)
[2023-02-25] MEDS: IPRATROPIUM BR 0.02% INH SOLN 0.5 MG/2.5 ML VIAL 1 MG INHALATION (10:29)
[2023-02-25] MEDS: ALBUTEROL SULFATE NEB 2.5 MG/3 ML INH INHALATION (10:29)
[2023-02-25 10:56] LABS: Lactic Acid Reflex 2.5 mmol/L (0.7-2.0)
[2023-02-25] MEDS: predniSONE 20 MG TABLET 60 MG PO (11:10)
[2023-02-25] MEDS: ASPIRIN 81 MG CHEWABLE TABLET 324 MG PO (11:11)
[2023-02-25] MEDS: POTASSIUM PHOS/SODIUM PHOS 250 MG TABLET PO (11:11)
[2023-02-25] MEDS: OSELTAMIVIR PHOSPHATE ORAL SUSP 75 MG/12.5 ML SYRINGE PO (11:11)
--- NOTE | 2023-02-25 11:17 | PC.NURSE ---
Pt taken to CT at this time
[2023-02-25] MEDS: MAGNESIUM SULF 2 GM/WATER 50ML 2 GM/50 ML BAG IVPB (11:38)
[2023-02-25] MEDS: SODIUM CHLORIDE 0.9% IV 500 ML 999 ML IV CONT (11:39)
[2023-02-25] MEDS: KCL 20 MEQ/SW 100 ML 100 ML 50 MEQ IVPB (11:39)
[2023-02-25] MEDS: LACTATED RINGERS 500 ML 999 ML IV CONT (12:44)
[2023-02-25] MEDS: AZITHROMYCIN 500 MG/NS 250 ML 500 MG/250 ML BAG 250 MG IVPB (12:53)
--- NOTE | 2023-02-25 13:16 | ECG_ITS ---
Measurements Intervals [place] Rate: 143 P: NE: 0 QRS: -3 QRSD: 85 T: -7 QT: 310 QTc: 479 Interpretive Statements ATRIAL FIBRILLATION WITH RAPID VENTRICULAR RESPONSE POSSIBLE INFERIOR MYOCARDIAL INFARCTION , PROBABLY OLD [30 ms Q WAVE IN II/aVF] ABNORMAL RHYTHM ECG COMPARED TO ECG 02/25/2023 08:46:42 ATRIAL FIBRILLATION REPLACES SVT OR FLUTTER Electronically Signed On 02-25-2023 18:05:14 FRINGE WEAVER by Felix Gao M.D.
[2023-02-25 13:43] LABS: Reflex Lactic Acid Yes or No Add Lactic
[2023-02-25 13:51] LABS: Anion Gap 13 mmol/L (8-16); Blood Urea Nitrogen 20 mg/dL (7-17); Calcium 8.4 mg/dL (8.4-10.2); Carbon Dioxide 24 mmol/L (22-30); Chloride 99 mmol/L (98-107); Estimated CRCL calculation 60 ml/min; Estimated Glomerular Filt Rate > 60; Glucose 154 mg/dL (65-110); Potassium 3.2 mmol/L (3.4-5.0); Sodium 136 mmol/L (137-145)
[2023-02-25 14:04] LABS: Troponin I 0.221 ng/mL (0.000-0.034)
[2023-02-25] MEDS: LACTATED RINGERS 1,000 ML 125 ML IV CONT ×2 (14:36→23:02)
--- NOTE | 2023-02-25 20:11 | PM.IMHP ---
H&P: HPI History of Present Illness Date/Time: 02/25/23 20:11 Chief Complaint: Shortness of breath Narrative: This is an 88-year-old female with past medical history significant for aortic stenosis, dementia, stroke, dyslipidemia, paroxysmal atrial fibrillation. Patient lives at assisted living facility was found down in severe respiratory distress and brought to the emergency room. At the time of my visit patient was on BiPAP. History was obtained from daughter who was at bedside. Portable chest x-ray Comparison: 06/06/2022 Clinical History: Hypoxia Findings:? Probable COPD pattern present. No consolidation or pleural effusion.? Cardiomediastinal silhouette is stable. Bones and soft tissues are unremarkable. ? Impression: ? COPD. EXAMINATION: CT brain wo con ? INDICATION: Altered mental status ? COMPARISON: 06/06/2022 TECHNIQUE: Standard unenhanced head CT. The dose-length product (DLP) was 605.33 mGy-cm. The mA was adjusted according to patient size. Iterative reconstruction technique was employed. ? FINDINGS: No acute intraparenchymal hemorrhage. No evidence of mass lesion. No evidence of acute infarction. There are old infarcts of the left frontal and parietal lobes. There is mild periventricular and subcortical hypodensity probably related to small vessel ischemic disease. There is mild prominence of the sulci and ventricles related to cerebral atrophy. Intracranial calcified cerebral atherosclerosis is noted. No extra-axial collections. No mass effect or midline shift. Changes in the globes are likely from ocular lens surgery. There is mild mucosal thickening of the paranasal sinuses. IMPRESSION: 1. Areas of prior infarction without acute intracranial abnormality. 2. Age related findings. EXAMINATION: CTA chest PE protocol DATE: 02/25/2023 11:32 INDICATION: Hypoxia and tachycardia TECHNIQUE: Computed tomography angiography (CTA) of the chest was performed with 100 mL Omnipaque-350 intravenous contrast timed to evaluate the pulmonary arteries. Coronal maximum intensity projection 3D-reconstructions were created by the technologist. The dose-length product (DLP) was 492.55 mGy-cm. Automated exposure control and iterative reconstruction technique were employed. COMPARISON: None. FINDINGS: The pulmonary arteries are well-opacified. No pulmonary embolism is identified. Respiratory motion artifact somewhat limits the examination. There are airspace opacities of the right middle and lower lobes. Minimal airspace opacities are also seen in the left lower lobe. No pleural effusion or pneumothorax. The heart size is normal. There are healing lateral fractures of the right fifth and sixth ribs. There appears to 13 mm mass of the right breast. There is a small sliding hiatal hernia. There are bridging osteophytes at multiple levels in the spine, consistent with diffuse idiopathic skeletal hyperostosis (DISH). Punctate calcifications in otherwise normal appearing liver and spleen likely represent healed granulomatous disease. IMPRESSION: 1. No pulmonary embolus identified, sensitivity limited by respiratory motion. 2. Airspace opacities of the lower lobes and right middle lobe, consistent with pneumonia. Consider followup chest CT in six weeks if symptoms persist after appropriate therapy or if the patient is at high risk for malignancy. 3. Small right breast mass. Nonemergent diagnostic mammogram and possible ultrasound would be recommended if further evaluation is desired. 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
--- NOTE | 2023-02-25 21:58 | PC.NURSE ---
delay of transport of patient to the floor due to workload of pulmonary function technician.
--- NOTE | 2023-02-25 22:40 | ADMGEN ---
This patient, Rosa Angela, was admitted to IMU Room 203-01. Patient/family oriented to hospital policies and general routines including ID bracelet, bed and alarms, visiting hours, pain management, procedures, bathroom and other care routines, personal items, smoking policy, room service/diet, and visiting hours. Information on how to activate the Rapid Response Team has been discussed. Patient/Family are encouraged to report perceived risks to care and to ask questions if they do not understand what they are told or what they should do.
[2023-02-26] VITALS (30 sets, daily range): BP systolic 121–165; BP diastolic 43–103; PULSE 71–106; RESP 18–33; TEMP 36.1–37.1; O2SAT 82–100
[2023-02-26] MEDS: IPRATROPIUM BR 0.02% INH SOLN 0.5 MG/2.5 ML VIAL INHALATION ×4 (03:59→20:13)
[2023-02-26] MEDS: ALBUTEROL SULFATE NEB 2.5 MG/3 ML INH INHALATION ×3 (03:59→11:48)
[2023-02-26 05:23] LABS: Alveolar/Arterial O2 Gradient 90.7 mmHg; Fractional Inspired Oxygen 30 %; HCO3 ABG 26.9 mEq/l (22.0-26.0); Oxygen Content ABG 16.3 %vol (16.0-22.0); Oxygen Saturation ABG 97.1 % (95.0-100.0); Oxyhemoglobin 95.5 % THb (90.0-100.0); PCO2 ABG 34.5 mmHg (35.0-45.0); PO2 ABG 82.7 mmHg (80.0-100.0); PO2 FiO2 Ratio Arterial Blood 2.76 %; Total Hemoglobin 12.1 g/dL (12.0-18.0)
[2023-02-26 05:26] LABS: Device NON-INVASIVE VENT; Modified Allen's Test Pass; Non-Invasive Vent Rate 18 /MIN; Site Drawn RIGHT RADIAL
[2023-02-26 05:27] LABS: Non-Invasive Expiratory Pressure 6 CMH2O; Non-Invasive Inspiratory Pressure 12 CMH2O
[2023-02-26 05:30] LABS: Hematocrit 26.8 % (37.0-47.0); Hemoglobin 8.4 g/dL (12.0-15.0); Mean Corpuscular HGB Conc 31.3 g/dl (32-36); Mean Corpuscular Hemoglobin 28.9 pg (26-34); Mean Corpuscular Volume 92.1 fl (80-100); Platelet Count Result 117 k/mm3 (150-375); Red Blood Count 2.91 M/mm3 (4.2-5.4); Red Cell Distribution Width 13.4 % (11.5-14.5); White Blood Count 11.2 K/mm3 (4.5-10.0)
[2023-02-26 05:49] LABS: Alanine Aminotransferase 20 U/L (6-35); Albumin Level 2.2 g/dL (3.5-5.1); Alkaline Phosphatase 46 U/L (38-126); Anion Gap 7 mmol/L (8-16); Aspartate Amino Transferase 34 U/L (14-36); Bilirubin,Total 0.5 mg/dL (0.2-1.3); Blood Urea Nitrogen 14 mg/dL (7-17); Calcium 7.6 mg/dL (8.4-10.2); Carbon Dioxide 23 mmol/L (22-30); Chloride 102 mmol/L (98-107); Estimated CRCL calculation 96 ml/min; Estimated Glomerular Filt Rate > 60; Glucose 91 mg/dL (65-110); Potassium 3.3 mmol/L (3.4-5.0); Sodium 132 mmol/L (137-145)
[2023-02-26] MEDS: LACTATED RINGERS 1,000 ML 125 ML IV CONT ×2 (05:50→12:50)
--- NOTE | 2023-02-26 09:25 | PM.CNCAR ---
Assessment and Plan Assessment and plan (1) Paroxysmal atrial fibrillation: Code(s): I48.0 - Paroxysmal atrial fibrillation Status: Acute Plan This is an 88-year-old lady with a known history of paroxysmal atrial fibrillation. She had a essentially asymptomatic recurrence of her arrhythmia last night in the setting of influenza a, respiratory distress as well as significant anemia according to the record this [place] hemoglobin level was normal last summer. She is back in sinus rhythm and on a unusual daily dose of sotalol. I am going to change her sotalol dosage to 80 mg q.12. We will observe her rhythm with you while she is in the hospital. As stated above and is stated in my partners notes she has been deemed not a safe candidate for anticoagulation because of frequent falling as well as a fall associated with the subdural hematoma last summer. Felix Gao MD [facility] History of Present Illness History of Present Illness Consult date/time: 02/26/23 09:25 Reason For Visit: PNA/COPD Exacerbation/Hypoxia on Bipap/Hypokalemia Narrative: This is an 88-year-old woman that I am were requested to see today by the hospitalist because of troponin levels that were found to be out of normal range and because of a recurrence of her paroxysmal atrial fibrillation. The patient is unknown to me but is known to us followed by my partner, Dr. Bay. This is an elderly lady that lives in an assisted living facility and came here yesterday because of the coughing and respiratory distress. She was found to have influenza a with evidence of pneumonitis. In this setting she was also in atrial fibrillation with RVR. She was not aware of her tachycardia or otherwise symptomatic from that from the as best as I can tell the patient is a does have significant baseline dementia and does not have much memory of these events although the daughter is at the bedside who does provide a very good history. She has been continued on her sotalol but at all unusual dosage of 80 mg daily and overnight has converted back to sinus rhythm. This is a patient with a history of paroxysmal AFib that was 1st identified back in 2021 which she was hospitalized here with shortness of breath pneumonia and sepsis and had AF with RVR. The patient was treated with sotalol and for the most part has maintained sinus rhythm. She was initially also started on anticoagulation with apixaban. Subsequent to this it was clear that she was a poor candidate for ongoing anticoagulation because she was falls very frequently at her assisted living facility and also had a fall in the summer of 2022 that was associated with a subdural hematoma for which she was transferred over to [facility]. Since then she has of course not been anticoagulated. She does not have any specific complaints at this time although she is very hard of hearing. The patient interesting also has a new problem where she is significantly anemic. It looks like her hemoglobin levels previously were normal and now is 8.4. As stated above she is is not and has not been recently anticoagulated and there has been no obvious bleeding noted according to what her daughter tells me. 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
--- NOTE | 2023-02-26 09:35 | PM.IMPN ---
Progress Note: A&P Assessment and Plan (1) Acute hypoxic respiratory failure: Code(s): J96.01 - Acute respiratory failure with hypoxia Status: Acute (2) Paroxysmal atrial fibrillation: Code(s): I48.0 - Paroxysmal atrial fibrillation Status: Acute (3) Community acquired pneumonia: Qualifiers: Laterality: unspecified laterality Qualified Code(s): J18.9 - Pneumonia, unspecified organism Code(s): J18.9 - Pneumonia, unspecified organism Status: Acute (4) CVA (cerebral vascular accident): Code(s): I63.9 - Cerebral infarction, unspecified Status: Acute (5) COPD exacerbation: Code(s): J44.1 - Chronic obstructive pulmonary disease with (acute) exacerbation Status: Acute Plan This is an 88-year-old female with past medical history significant for aortic stenosis, dementia, stroke, dyslipidemia, paroxysmal atrial fibrillation.? Patient lives at assisted living facility was found down in severe respiratory distress and brought to the emergency room.? At the time of my visit patient was on BiPAP.? (1) Acute hypoxic respiratory failure COPD/asthma ?Code(s): J96.01 - Acute respiratory failure with hypoxia ?Status:?Acute ?Assessment and Plan: Currently on continuous BiPAP Continue to monitor Breathing treatments Possible due to not diagnosed COPD or asthma Patient has wheezing bilaterally, some labored breathing Continue Atrovent, add levalbuterol q.6 hours scheduled, and methylprednisolone 125 mg IV push once, continue methylprednisolone 80 mg q.8 hours IV Consult freight breaker for evaluation treatment (2) RML pneumonia: ?Code(s): J18.9 - Pneumonia, unspecified organism ?Status:?Acute ?Assessment and Plan: CTA: 1. No pulmonary embolus identified, sensitivity limited by respiratory motion. 2. Airspace opacities of the lower lobes and right middle lobe, consistent with pneumonia. Consider followup chest CT in six weeks if symptoms persist after appropriate therapy or if the patient is at high risk for malignancy. Patient started on Rocephin and Zithromax, continue the antibiotics Influenza A positive, start Tamiflu 75 mg b.i.d. p.o. Cultures in progress Radiologist's report: small right breast mass. Nonemergent diagnostic mammogram and possible ultrasound would be recommended if further evaluation is desired. Refer to PCP for further evaluation and monitor outpatient (3) Aortic valve stenosis, nonrheumatic: ?Code(s): I35.0 - Nonrheumatic aortic (valve) stenosis ?Status:?Acute ?Assessment and Plan: Caution with IV fluids (4) Paroxysmal atrial fibrillation: ?Code(s): I48.0 - Paroxysmal atrial fibrillation and elevated troponin ?Status:?Acute ?Assessment and Plan: Patient is on sotalol Rug Cleaner?changes her sotalol dosage to 80 mg q.12.? observe her rhythm with you while she is in the hospital.? Rug Cleaner considers she has been deemed not a safe candidate for anticoagulation because of frequent falling as well as a fall associated with the subdural hematoma last summer. Follow-up population health manager recommendation (5) CVA (cerebral vascular accident): ?Code(s): I63.9 - Cerebral infarction, unspecified ?Status:?Acute ?Assessment and Plan: Unchanged (6) Right hemiparesis: ?Code(s): G81.91 - Hemiplegia, unspecified affecting right dominant side ?Status:?Acute ?Assessment and Plan: Unchanged Hypokalemia Replete with potassium chloride Follow-up BMP Subjective Date/time seen: 02/26/23 09:35 Interval history: I saw and examined patient in presents of patient's daughter and bedside, patient still has shortness breath at rest, and patient also has cough with scant phlegm. Patient has severe hard hearing, history is taken from patient's daughter. Patient is off BiPAP now. Labs reviewed Exam Narrative: GENERAL: Ill-appearing in no acute distress. W
[2023-02-26] MEDS: amLODIPine BESYLATE 5 MG TABLET 10 MG PO (10:04)
[2023-02-26] MEDS: SOTALOL HCL 80 MG TABLET PO ×2 (10:04→20:59)
[2023-02-26] MEDS: POTASSIUM CHLORIDE 20 MEQ PACKET (FOR LIQUID) 40 MEQ PO (10:04)
[2023-02-26] MEDS: cefTRIAXone 2 GM/NS 100 ML 2 GM/100 ML BAG IVPB (12:50)
[2023-02-26] MEDS: methylPREDNISolone SOD SUCC 125 MG VIAL IV PUSH (12:50)
[2023-02-26] MEDS: OSELTAMIVIR PHOSPHATE 75 MG CAPSULE PO ×2 (12:51→21:00)
[2023-02-26] MEDS: AZITHROMYCIN 500 MG/NS 250 ML 500 MG/250 ML BAG 250 MG IVPB (12:51)
[2023-02-26] MEDS: methylPREDNISolone SOD SUCC 125 MG VIAL 80 MG IV PUSH ×2 (14:04→21:00)
--- NOTE | 2023-02-26 14:26 | PC.NURSE ---
This patient, Rosa Angela, was transferred to [[id number] ] on 02/26/23 at 1420. Personal belongings sent with patient. Report given to [Dayna PAYNE ]. Appropriate documentation sent with patient.
--- NOTE | 2023-02-26 15:23 | ECG_ITS ---
Measurements Intervals [place] Rate: 106 P: 97 MO: 188 QRS: -20 QRSD: 69 T: -19 QT: 329 QTc: 437 Interpretive Statements SINUS TACHYCARDIA INFERIOR MYOCARDIAL INFARCTION , PROBABLY OLD WITH POSTERIOR EXTENSION [40+ ms Q WAVE AND/OR ST/T ABNORMALITY IN II/aVFPROMINE ABNORMAL ECG COMPARED TO ECG 02/25/2023 13:30:26 SINUS TACHYCARDIA REPLACES ATRIAL FIBRILLATION Electronically Signed On 02-26-2023 15:32:34 CLINICAL ENGINEER by Felix Gao M.D.
[2023-02-26] MEDS: LEVALBUTEROL NEB 1.25 MG/3 ML INHALATION ×2 (15:30→20:13)
--- NOTE | 2023-02-26 15:48 | P.RRN_ITS ---
Critical Care Event Note Summary Code activated: No Narrative: Rapid Response called at 15:20 p.m. Patient became acutely diaphoretic and SOB with increased WOB w/accessory muscle use post-transfer from IMU. At my arrival patient was flushed, diaphoretic, SOB with increased WOB. Patient 82-84% on 6L NC. Physical exam revealed coarse lung sounds with expiratory wheeze, crackles at bases bilaterally, more diminished on left, and tachypnea. Skin hot, diaphoretic, with facial flushing extending to anterior chest. Right pupil 5 mm and reactive, left pupil 3 mm and reactive. Per bedside RN, this was not consistent with physical exam earlier today. Patient placed back on BiPAP and stat neb given. Reviewed previous imaging findings: CXR showed COPD. Head CT showed areas of prior infarction without acute intracranial abnormalities and age related findings. Chest CTA showed no PE, airspace opacities of the lower lobes and right middle lobe consistent with pneumonia, and a small right breast mass. All imaging was performed on 02/25. Stat EKG ordered -some concern for new depression and ST elevations, contacted Ivonne Perez NP with cardiology service. Cardiology has been following with patient and deemed her an unsafe candidate for anticoagulation due to frequent falls with a subsequent subdural hematoma last summer. Troponins elevated since arrival 0.188 -> 0.221. Repeat troponin ordered, repeat ABG as well. Holding IVF and repeat one-view CXR. Tr anselmo back to IMU. 1600 - patient in imaging, improved overall appearance on BiPAP. Skin less flushed and no longer as diaphoretic. Per my review of the Head CT hemorrhage, proceeded with CTA of brain/neck. Awaiting formal read. Now back in IMU. 1711 - Troponin 0.262, mild increase compared to previous. AB.437 pH, 36.8 pCO2, 56.0 pO2, 24.3 HCO3, O2 sat 90.3% CXR: airspace opacities of the lung bases and right lung apex, consistent with pneumonia. Head CT non-con: Cerebral atherosclerosis and chronic small vessel ischemic changes of the cerebral white matter, chronic watershed infarct on the left, interval resolution of small acute right tentorial subdural hematoma since June 06, 2022. CTA of brain/neck: 1. 0% stenosis of the right carotid bulb relative to normal distal artery lumen diameter (NASCET criteria). 2. 25% stenosis of the left carotid bulb relative to normal distal artery lumen diameter. 3. Nonhemodynamically significant atherosclerotic plaque at the bilateral carotid siphons and along the dominant left vertebral artery. No aneurysm or hemodynamically significant stenosis. 4. Mild pulmonary edema. Report given to rounding physician, Suhail Coley MD. Critical Care Time: This case had a high probability of a clinically significant, sudden, or life threatening deterioration of this patient's condition which required my full and direct attention, intervention and personal management. I personally spent 70 minutes of direct patient care including (but not limited to) the physical examination, decision-making, bedside evaluation, review of medical records, review of labs and imaging, discussion with nursing staff and other providers for collaborative, critical care management of this patient. Critical care time: 30 - 74 mins
[2023-02-26 15:55] LABS: Alveolar/Arterial O2 Gradient 114.7 mmHg; Base Excess ABG 0.4 mEq/l (+/-2.0); Fractional Inspired Oxygen 30 %; HCO3 ABG 24.3 mEq/l (22.0-26.0); Oxygen Content ABG 16.8 %vol (16.0-22.0); Oxygen Saturation ABG 90.3 % (95.0-100.0); Oxyhemoglobin 89.1 % THb (90.0-100.0); PCO2 ABG 36.8 mmHg (35.0-45.0); PO2 FiO2 Ratio Arterial Blood 1.87 %; Total Hemoglobin 13.4 g/dL (12.0-18.0); pH ABG 7.437 (7.350-7.450)
--- NOTE | 2023-02-26 15:58 | PC.NURSE ---
This patient, Rosa Angela, was transferred to IMU after going down to CT with respiratory and IMU nurse on 02/26/23 at 1559. Personal belongings sent with patient. Report given to Alda. Appropriate documentation sent with patient.
[2023-02-26 15:59] LABS: Device NON-INVASIVE VENT; Modified Allen's Test Pass; Non-Invasive Inspiratory Pressure 12 CMH2O; Non-Invasive Vent Rate 18 /MIN; Site Drawn RIGHT RADIAL
[2023-02-26 16:00] LABS: Non-Invasive Expiratory Pressure 6 CMH2O
[2023-02-26 16:26] LABS: Troponin I 0.262 ng/mL (0.000-0.034)
--- NOTE | 2023-02-26 16:53 | PM.CNPUL ---
Assessment and Plan Assessment and plan (1) Influenza A: Code(s): J10.1 - Influenza due to other identified influenza virus with other respiratory manifestations Status: Acute Assessment and Plan: She has influenza with a nasapharyngeal swab and symptoms that match. She started Tamiflu at admission. (2) Acute hypoxic respiratory failure: Code(s): J96.01 - Acute respiratory failure with hypoxia Status: Acute Assessment and Plan: She is requiring O2 for hypoxemia on presentaiton. (3) Gram positive bacterial infection: Code(s): A49.9 - Bacterial infection, unspecified Status: Acute Assessment and Plan: Blood culture from Feb 25 for Gram positive cocci called from the lab; I ordered MRSA screen and Vancomycin initiation for possible infection, lung or other source. She has (+) influenza; bacteail infections can follow influenza however it is early for her to have a bacterial superinfection. History of Present Illness History of Present Illness Consult date: 02/26/23 Requesting physician: Kusum Coley MD Chief complaint: PNA/COPD Exacerbation/Hypoxia on Bipap/Hypokalemia Narrative: pt was seen Feb 26 at 20:00 NEW: Rosa Angela is an 88-year-old woman who lives in an assisted living residence; admitted February 25 with severe respiratory distress, came to ER; initial CXR = COPD, she was placed on BiPAP; serology shows Influenza A; she is getting oral Tamiflu, IV solumedrol 80 mg IV Q 8 hours; she has no hypercapnia. See ABGs below. O2 was weaned, first ABG was on 50%, down to 30%. Feb 25 initial white blood cell count was 16.6, today decreased to 11.2. She was probably volume depleted, initial BUN was 20 and creatinine was 0.5, today BUN is 14 creatinine is 0.3 with a drop in the H/H; H/H 14/42%, today 8.4/26.8%. Lab called the IMU at 23:30 with report that she has 1:2 bottles gerowing Gram positive cocci. At 15:20 today, she had an episode of distress with her skin flushed, diaphoretic, shortness of breath with increased work of breathing. Saturation was low, 82-84% on 6L nasal cannula. She had crackles and wheezing, rapid breathing. tachypnea. She was sweaty and had facial flushing extending to anterior chest.? Her pupils were not equal, R was 5mm, L was 3 mm; I suspect that she had ipratropium get in her right eye. Head CT did not show anything acute, prior infarction without acute intracranial abnormalities and age related findings. She was put on BiPAP again and got nebulized treatment. CTA Chest = o PE, airspace opacities of the lower lobes and right middle lobe consistent with pneumonia, and a small right breast mass. PMH: mild aortic stenosis, dementia, stroke, with right sided weakness 2019 and she went to rehab, dyslipidemia, paroxysmal atrial fibrillation.? Patient lives at assisted living facility was found down in severe respiratory distress and brought to the emergency room.?? Data * 02/25 CXR COPD * 02/25 CTA : No pulmonary embolus identified, sensitivity limited by respiratory motion. 2. Airspace opacities of the lower lobes and right middle lobe, consistent with pneumonia. Consider followup chest CT in six weeks if symptoms persist after appropriate therapy or if the patient is at high risk for malignancy. 3. Small right breast mass. Nonemergent diagnostic mammogram and possible ultrasound would be recommended if further evaluation is desired. Feb 25 :pH 7.50 pCO2 32.3; PO2 131.4 HC03 25.1 saturation 98.9% on BiPAP 02/10 and 50% Feb 25: pH 7.51 pCO2 34.5 PO2 82.7 HC03 26.9 saturation 97.1% on BiPAP 12/6 and 30% Feb 26: pH 7.43 pCO2 36.8 PO2 56 HC03 24.3 saturation 90.3% on BiPAP 12/6 and 30% Review of Systems Review of Systems: All systems reviewed & are unremarkable exc
[2023-02-26] MEDS: POTASSIUM CHLORIDE 20 MEQ PACKET (FOR LIQUID) PO (17:03)
[2023-02-26 17:41] LABS: Glucose Point of Care 226 mg/dl (65-105)
[2023-02-26] MEDS: FUROSEMIDE INJ 40 MG/4 ML VIAL 20 MG IV PUSH (20:59)
[2023-02-27] VITALS (31 sets, daily range): BP systolic 125–175; BP diastolic 65–99; PULSE 76–139; RESP 16–34; TEMP 36.2–37.6; O2SAT 91–97
[2023-02-27] MEDS: VANCOMYCIN 2,000 MG/NS 500 ML 2,000 MG/500 ML BAG 250 MG IVPB (00:05)
[2023-02-27] MEDS: LEVALBUTEROL NEB 1.25 MG/3 ML INHALATION ×2 (01:55→20:25)
[2023-02-27] MEDS: IPRATROPIUM BR 0.02% INH SOLN 0.5 MG/2.5 ML VIAL INHALATION ×6 (01:55→20:25)
[2023-02-27] MEDS: cefTRIAXone 2 GM/NS 100 ML 2 GM/100 ML BAG IVPB ×2 (02:16→13:47)
[2023-02-27 02:22] LABS: Hematocrit 39.8 % (37.0-47.0); Mean Corpuscular HGB Conc 32.7 g/dl (32-36); Mean Corpuscular Hemoglobin 28.8 pg (26-34); Mean Corpuscular Volume 88.2 fl (80-100); Mean Platelet Volume 11.2 fl (7.4-10.4); Platelet Count Result 242 k/mm3 (150-375); Red Blood Count 4.51 M/mm3 (4.2-5.4); Red Cell Distribution Width 13.6 % (11.5-14.5); White Blood Count 19.5 K/mm3 (4.5-10.0)
[2023-02-27 02:33] LABS: Anion Gap 13 mmol/L (8-16); Blood Urea Nitrogen 18 mg/dL (7-17); Calcium 8.6 mg/dL (8.4-10.2); Carbon Dioxide 25 mmol/L (22-30); Chloride 102 mmol/L (98-107); Estimated CRCL calculation 75 ml/min; Estimated Glomerular Filt Rate > 60; Glucose 215 mg/dL (65-110); Potassium 3.7 mmol/L (3.4-5.0); Sodium 140 mmol/L (137-145)
[2023-02-27] MEDS: ALBUTEROL SULFATE NEB 2.5 MG/3 ML INH INHALATION ×4 (04:21→16:31)
[2023-02-27] MEDS: methylPREDNISolone SOD SUCC 125 MG VIAL 80 MG IV PUSH ×3 (05:00→22:02)
[2023-02-27] MEDS: POTASSIUM CHLORIDE 20 MEQ PACKET (FOR LIQUID) PO ×2 (08:35→17:16)
[2023-02-27] MEDS: amLODIPine BESYLATE 5 MG TABLET 10 MG PO (08:35)
[2023-02-27] MEDS: SOTALOL HCL 80 MG TABLET PO ×2 (08:36→20:15)
[2023-02-27] MEDS: OSELTAMIVIR PHOSPHATE 75 MG CAPSULE PO ×2 (11:47→20:15)
[2023-02-27] MEDS: VANCOMYCIN 1,250 MG/NS 250 ML 1,250 MG/250 ML BAG 166.67 MG IVPB (11:47)
[2023-02-27] MEDS: AZITHROMYCIN 500 MG/NS 250 ML 500 MG/250 ML BAG 250 MG IVPB (13:52)
[2023-02-27] MEDS: METOPROLOL TARTRATE INJ 5 MG/5 ML VIAL IV PUSH (17:30)
--- NOTE | 2023-02-27 18:20 | PM.IMPN ---
Progress Note: A&P Assessment and Plan (1) Acute hypoxic respiratory failure: Code(s): J96.01 - Acute respiratory failure with hypoxia Status: Acute (2) Paroxysmal atrial fibrillation: Code(s): I48.0 - Paroxysmal atrial fibrillation Status: Acute (3) Community acquired pneumonia: Qualifiers: Laterality: unspecified laterality Qualified Code(s): J18.9 - Pneumonia, unspecified organism Code(s): J18.9 - Pneumonia, unspecified organism Status: Acute (4) CVA (cerebral vascular accident): Code(s): I63.9 - Cerebral infarction, unspecified Status: Acute (5) COPD exacerbation: Code(s): J44.1 - Chronic obstructive pulmonary disease with (acute) exacerbation Status: Acute Plan This is an 88-year-old female with past medical history significant for aortic stenosis, dementia, stroke, dyslipidemia, paroxysmal atrial fibrillation.? Patient lives at assisted living facility was found down in severe respiratory distress and brought to the emergency room.? At the time of my visit patient was on BiPAP.? (1) Acute hypoxic respiratory failure COPD/asthma ?Code(s): J96.01 - Acute respiratory failure with hypoxia ?Status:?Acute ?Assessment and Plan: Currently on continuous BiPAP Continue to monitor Breathing treatments Possible due to not diagnosed COPD or asthma Patient has wheezing bilaterally, some labored breathing Continue Atrovent, add levalbuterol q.6 hours scheduled, and methylprednisolone 125 mg IV push once, continue methylprednisolone 80 mg q.8 hours IV Consult millstone cleaner for evaluation treatment Continue with BiPAP Consider soft restraints and anxiolytics if patient continues to fight with BiPAP (2) RML pneumonia: ?Code(s): J18.9 - Pneumonia, unspecified organism ?Status:?Acute ?Assessment and Plan: CTA: 1. No pulmonary embolus identified, sensitivity limited by respiratory motion. 2. Airspace opacities of the lower lobes and right middle lobe, consistent with pneumonia. Consider followup chest CT in six weeks if symptoms persist after appropriate therapy or if the patient is at high risk for malignancy. Patient started on Rocephin and Zithromax, continue the antibiotics Influenza A positive, start Tamiflu 75 mg b.i.d. p.o. Cultures in progress Patient had mild jumped secondary to high-dose IV Solu-Medrol 80 mg q.8 hours Radiologist's report: small right breast mass. Nonemergent diagnostic mammogram and possible ultrasound would be recommended if further evaluation is desired. Refer to PCP for further evaluation and monitor outpatient (3) Aortic valve stenosis, nonrheumatic: ?Code(s): I35.0 - Nonrheumatic aortic (valve) stenosis ?Status:?Acute ?Assessment and Plan: Caution with IV fluids (4) Paroxysmal atrial fibrillation: ?Code(s): I48.0 - Paroxysmal atrial fibrillation and elevated troponin ?Status:?Acute ?Assessment and Plan: Patient is on sotalol Change Management Analyst?changes her sotalol dosage to 80 mg q.12.? observe her rhythm with you while she is in the hospital.? Change Management Analyst considers she has been deemed not a safe candidate for anticoagulation because of frequent falling as well as a fall associated with the subdural hematoma last summer. Follow-up yard hand recommendation (5) CVA (cerebral vascular accident): ?Code(s): I63.9 - Cerebral infarction, unspecified ?Status:?Acute ?Assessment and Plan: Unchanged (6) Right hemiparesis: ?Code(s): G81.91 - Hemiplegia, unspecified affecting right dominant side ?Status:?Acute ?Assessment and Plan: Unchanged Hypokalemia Replete with potassium chloride Follow-up BMP Spoke with family at the bedside in detail. Patient would likely require correction facility placement for recovery before going back to her assisted living facility. With patient and family are in agreement of this discharge planning
[2023-02-27] MEDS: dilTIAZem 100 MG/100 ML 100 MG/100 ML BAG 10 MG IV CONT (18:42)
[2023-02-27] MEDS: dilTIAZem HCl INJ 25 MG/5 ML VIAL 10 MG IV PUSH (18:42)
[2023-02-28] VITALS (35 sets, daily range): BP systolic 129–166; BP diastolic 75–96; PULSE 63–147; RESP 22–31; TEMP 35.8–37.2; O2SAT 94–98
[2023-02-28] MEDS: VANCOMYCIN 1,250 MG/NS 250 ML 1,250 MG/250 ML BAG 166 MG IVPB (00:04)
[2023-02-28] MEDS: dilTIAZem HCl INJ 25 MG/5 ML VIAL 10 MG IV PUSH (00:39)
[2023-02-28] MEDS: LEVALBUTEROL NEB 1.25 MG/3 ML INHALATION ×4 (01:38→20:00)
[2023-02-28] MEDS: IPRATROPIUM BR 0.02% INH SOLN 0.5 MG/2.5 ML VIAL INHALATION ×4 (01:38→20:00)
[2023-02-28] MEDS: cefTRIAXone 2 GM/NS 100 ML 2 GM/100 ML BAG IVPB ×2 (01:41→12:31)
--- NOTE | 2023-02-28 02:32 | ECG_ITS ---
Measurements Intervals [place] Rate: 133 P: [place]: 0 QRS: 16 QRSD: 84 T: -52 QT: 323 QTc: 482 Interpretive Statements ATRIAL FLUTTER/TACHYCARDIA WITH RAPID VENTRICULAR RESPONSE ST CHANGES INFERIORLY, CONSIDER INFERIOR INJURY OR PA COMPARED TO ECG 02/26/2023 15:29:57 ATRIAL FLUTTER NOW PRESENT INFERIOR ISCHEMIC CHANGES WORSENED Electronically Signed On 02-28-2023 17:03:19 RESIDENTIAL HOUSEKEEPER by Jackie Rust M.D.
[2023-02-28] MEDS: dilTIAZem 100 MG/100 ML 100 MG/100 ML BAG 15 MG IV CONT (02:33)
--- NOTE | 2023-02-28 02:58 | ECG_ITS ---
Measurements Intervals Carlos Rate: 115 P: ME: 0 QRS: 37 QRSD: 72 T: -30 QT: 375 QTc: 519 Interpretive Statements ATRIAL FIBRILLATION WITH RAPID VENTRICULAR RESPONSE INFERIOR ST CHANGES , POSSIBLE INFERIOR INJURY OR PR COMPARED TO ECG 02/28/2023 02:42:34 ATRIAL FIBRILLATION NOW PRESENT Electronically Signed On 02-28-2023 17:03:58 CAR SEAT COVERER by Jackie Rust M.D.
--- NOTE | 2023-02-28 03:52 | P.PNCROSS_ITS ---
Event Note Event Note Event Note: Called by RN earlier for a fib RVR, started on a Cardizem drip, converted to NS R. However, now back in a fib RVR. Has had some spells of anxiety, flushing but no evidence of CP. ON BiPAP. EKG previously showed poss old IMI w/ sllight ST depression in inf leads. EKG a short while ago showed a fib RVR w/ slight ST elevation in III and AVF. CAn not exclude an acute IMI, but w/ inf Q waves, this may be ischemia superimposed on an old IMI. In any case, pt has Gm + bacteremia, intermittent anemia, and has been thought to be a poor candidate for AC due to falls, and a modified code; not a good candidate for aggressive intervention such as emergent cath. I rec slowing HR down w/ IV metoprolol and po and changing IV cardizem to amio to control HR and hopefully maintain NSR better, then re-eval EKG. Aware of drug interactions; will DC sotalol but will need to cont azithromycin and follow QT interval. Check labs, trop, CXR.
[2023-02-28] MEDS: AMIODARONE 150 MG/D5W 100 ML 150 MG/100 ML BAG 600 MG IV CONT (04:10)
[2023-02-28] MEDS: AMIODARONE 360 MG/D5W 200 ML 360 MG/200 ML BAG 33.33 MG IV CONT (04:10)
[2023-02-28] MEDS: METOPROLOL TARTRATE INJ 5 MG/5 ML VIAL IV PUSH (04:18)
[2023-02-28 04:58] LABS: Basophils Percent Auto 0.2 % (0.2-1.2); Eosinophils Absolute Auto 0.1 K/mm3 (0-0.3); Eosinophils Percent Auto 0.3 % (0-4.4); Hematocrit 37.1 % (37.0-47.0); Hemoglobin 12.4 g/dL (12.0-15.0); Immature Granulocyte Absolute 0.27 K/mm3 (0.00-0.031); Immature Granulocyte Percent A 1.6 % (0-0.5); Lymphocytes Absolute Auto 0.78 K/mm3 (0.9-3.2); Lymphocytes Percent Auto 4.7 % (18.3-44.2); Mean Corpuscular HGB Conc 33.4 g/dl (32-36); Mean Corpuscular Hemoglobin 29.2 pg (26-34); Mean Corpuscular Volume 87.3 fl (80-100); Mean Platelet Volume 11.5 fl (7.4-10.4); Monocytes Absolute Auto 0.8 K/mm3 (0.1-0.6); Monocytes Percent Auto 5.1 % (2.6-8.5); Neutrophils Absolute Auto 14.6 K/mm3 (1.3-6.7); Neutrophils Percent Auto 88.1 % (45.5-73.1); Nucleated Red Blood Cells Perc 0.1 % (0.0-0.2); Platelet Count Result 227 k/mm3 (150-375); Red Blood Count 4.25 M/mm3 (4.2-5.4); Red Cell Distribution Width 13.6 % (11.5-14.5); White Blood Count 16.6 K/mm3 (4.5-10.0)
[2023-02-28] MEDS: METOPROLOL TARTRATE 25 MG TABLET PO ×2 (05:03→20:12)
[2023-02-28] MEDS: methylPREDNISolone SOD SUCC 125 MG VIAL 80 MG IV PUSH ×2 (05:03→13:09)
[2023-02-28 05:08] LABS: Anion Gap 13 mmol/L (8-16); Blood Urea Nitrogen 26 mg/dL (7-17); Calcium 8.8 mg/dL (8.4-10.2); Carbon Dioxide 25 mmol/L (22-30); Chloride 106 mmol/L (98-107); Estimated CRCL calculation 51 ml/min; Estimated Glomerular Filt Rate > 60; Glucose 226 mg/dL (65-110); Magnesium 2.1 mg/dL (1.6-2.3); Phosphorus 2.3 mg/dL (2.5-4.5); Potassium 3.2 mmol/L (3.4-5.0); Sodium 144 mmol/L (137-145)
[2023-02-28 05:21] LABS: NT Pro B Type Natriuretic Pept 12800 pg/mL (19.9-100)
--- NOTE | 2023-02-28 07:00 | ECG_ITS ---
Measurements Intervals [place] Rate: 78 P: 75 MI: 176 QRS: 39 QRSD: 88 T: 118 QT: 386 QTc: 440 Interpretive Statements SINUS RHYTHM MODERATE T-WAVE ABNORMALITY, CONSIDER ANTERIOR ISCHEMIA [-0.1+ mV T WAVE IN V3/V4] COMPARED TO ECG 02/28/2023 02:46:04 SINUS RHYTHM NOW PRESENT INFERIOR INJURY AND ISCHEMIC CHANGES HAVE RESOLVED Electronically Signed On 02-28-2023 17:04:57 PLANT CONTROLLER by Jackie Rust M.D.
--- NOTE | 2023-02-28 08:43 | PM.PNCARD ---
Progress Note: A&P Assessment and Plan (1) Paroxysmal atrial fibrillation: Code(s): I48.0 - Paroxysmal atrial fibrillation Status: Acute Assessment and Plan: Patient with a history of paroxysmal atrial fibrillation with exacerbation during this hospitalization resulting in rapid ventricular response, resulting in myocardial ischemia. Sotalol was discontinued, did not respond well to IV Cardizem, has converted to sinus rhythm on IV amiodarone. Previously anticoagulation was discontinued because of frequent falls and subdural hematoma. Fortunately her blood pressures been stable. --continue IV amiodarone --continue IV and p.o. metoprolol --patient is also on azithromycin, need to follow QT interval and for any proarrhythmic affects. I wonder if azithromycin can be discontinued? (2) Elevated troponin: Code(s): R79.89 - Other specified abnormal findings of blood chemistry Status: Acute Assessment and Plan: Patient has elevated troponin as well as some intermittent ST changes inferiorly and slightly in V1 and V2. Likely does have some underlying CAD aggravated by AFib RVR. Has nonischemic myocardial injury due to rapid AFib. --Resume aspirin and simvastatin (3) Acute diastolic CHF (congestive heart failure): Code(s): I50.31 - Acute diastolic (congestive) heart failure Status: Acute Assessment and Plan: Has developed acute diastolic heart failure likely due in part to the AFib RVR and sepsis. --furosemide 40 mg IV push probably for 2 or 3 doses --echocardiogram to reassess LV function and aortic stenosis --supplement potassium --daily BMP (4) RML pneumonia: Code(s): J18.9 - Pneumonia, unspecified organism Status: Acute Assessment and Plan: Has pneumonia, positive for influenza A. Getting Tamiflu. --wonder if azithromycin can be discontinued to avoid drug interaction with amiodarone? --on BiPAP. (5) Gram-negative bacteremia: Code(s): R78.81 - Bacteremia Status: Acute Assessment and Plan: Has Gram-negative bacteremia, on vancomycin. (6) Hypokalemia: Code(s): E87.6 - Hypokalemia Status: Acute Assessment and Plan: Will supplement. Subjective Date/time seen: 02/28/23 08:43 Interval history: Follow-up for paroxysmal atrial fibrillation with rapid ventricular response. Not anticoagulated due to history of falls and subdural hematoma. Patient was originally admitted with respiratory distress and is being treated for infuenza A pneumonia with antibiotics and BiPAP.. History of old stroke and right hemiparesis, aortic stenosis (mild in 2021), dementia. 02/26/2023: Increased sotalol to 80 mg b.i.d. for PAF Date of service 02/28/2023: Rough evening and night with intermittent AFib RVR. Could not be controlled with IV Cardizem so switched to IV amiodarone and IV plus p.o. metoprolol. EKG through the night showed some changes with slight ST elevation in 3 and AVF worrisome for ischemia/possible infarction. Patient never had a chest pain. Converted back to sinus rhythm this morning. Pt indicates she is not in any pain. Troponins: 1.4, 1.1 ProBNP: 12,000 Chest x-ray today: IMPRESSION: Patchy bilateral pulmonary infiltrates in the colon differential diagnosis includes bilateral pneumonia, pulmonary edema, aspiration personally reviewed, agree. Perhaps a new left pleural effusion, small as well. ? 02/28/2023 EKG at 5:48 a.m.: NSR rate 78, resolution of inferior ST and T segment changes, improvement of T-wave inversion in V1 and V2. No Q-waves to suggest infarction. Personally reviewed Review of Systems Review of Systems: Patient indicates that she is not in pain but cannot provide much else with review of systems. ROS was supplied mostly by the patient's nurse. ROS unobtainable: Yes unobtainable due to medical condition, unobtainable due to mental status and other (BIPAP) Exam Const: General: cooperative O
[2023-02-28] MEDS: FUROSEMIDE INJ 40 MG/4 ML VIAL IV PUSH ×2 (09:52→18:27)
[2023-02-28] MEDS: DOXYCYCLINE 100 MG/NS 100 ML 100 MG/100 ML BAG IVPB ×2 (09:52→20:13)
[2023-02-28] MEDS: POTASSIUM PHOS,M-BASIC-D-BASIC 40 MMOL in SODIUM CHLORIDE 0.9% IV 250 ML 43.89 MMOL IVPB (10:11)
[2023-02-28] MEDS: AMIODARONE 360 MG/D5W 200 ML 360 MG/200 ML BAG 16.67 MG IV CONT ×2 (10:19→21:36)
[2023-02-28] MEDS: metroNIDAZOLE 500 MG/ISO 100ML 500 MG/100 ML BAG 100 MG IVPB ×2 (11:08→21:29)
[2023-02-28] MEDS: VANCOMYCIN 1,750 MG/NS 500 ML 1,750 MG/500 ML BAG 250 MG IVPB (13:10)
--- NOTE | 2023-02-28 14:01 | PCSTNOTE ---
Bedside swallowing evaluation completed. Patient seen upright in bed with head of bed elevated. Daughter Hannah present at bedside. Nurse assisted with removing bipap for swallowing evaluation. Patient unable to follow instructions, requires verbal, visual and tactile cues. Cursory oral peripheral examination reveals generalized reduced strength, coordination, and range of motion in oral mechanism. Unable to complete detailed oral peripheral examination because patient unable to follow directions. Trials of thin liquid by spoon and cup, mildly thickened liquid by cup, and solid by spoon were given and each trial was immediately followed by coughing which is a possible sign of aspiration. Based on results of this evaluation recommendation is NPO and an order for a modified barium swallow study has been requested. Thank you for the referral of this patient.
[2023-02-28] MEDS: POTASSIUM CHLORIDE 20 MEQ ER TABLET PO (18:25)
[2023-02-28] MEDS: POTASSIUM CHLORIDE 20 MEQ PACKET (FOR LIQUID) PO (18:27)
--- NOTE | 2023-02-28 18:52 | PM.IMPN ---
Progress Note: A&P Assessment and Plan (1) Acute hypoxic respiratory failure: Code(s): J96.01 - Acute respiratory failure with hypoxia Status: Acute (2) Paroxysmal atrial fibrillation: Code(s): I48.0 - Paroxysmal atrial fibrillation Status: Acute (3) Community acquired pneumonia: Qualifiers: Laterality: unspecified laterality Qualified Code(s): J18.9 - Pneumonia, unspecified organism Code(s): J18.9 - Pneumonia, unspecified organism Status: Acute (4) CVA (cerebral vascular accident): Code(s): I63.9 - Cerebral infarction, unspecified Status: Acute (5) COPD exacerbation: Code(s): J44.1 - Chronic obstructive pulmonary disease with (acute) exacerbation Status: Acute Plan This is an 88-year-old female with past medical history significant for aortic stenosis, dementia, stroke, dyslipidemia, paroxysmal atrial fibrillation.? Patient lives at assisted living facility was found down in severe respiratory distress and brought to the emergency room.? At the time of my visit patient was on BiPAP.? (1) Acute hypoxic respiratory failure COPD/asthma ?Code(s): J96.01 - Acute respiratory failure with hypoxia ?Status:?Acute ?Assessment and Plan: Currently on continuous BiPAP Continue to monitor Breathing treatments Possible due to not diagnosed COPD or asthma Patient has wheezing bilaterally, some labored breathing Continue Atrovent, add levalbuterol q.6 hours scheduled, and methylprednisolone titrated down to 60 mg q.8 hours IV Consult sport psychologist for evaluation treatment Continue with BiPAP Consider soft restraints and anxiolytics if patient continues to fight with BiPAP (2) RML pneumonia: ?Code(s): J18.9 - Pneumonia, unspecified organism ?Status:?Acute ?Assessment and Plan: CTA: 1. No pulmonary embolus identified, sensitivity limited by respiratory motion. 2. Airspace opacities of the lower lobes and right middle lobe, consistent with pneumonia. Consider followup chest CT in six weeks if symptoms persist after appropriate therapy or if the patient is at high risk for malignancy. Patient started on Rocephin and Zithromax, continue the antibiotics Influenza A positive, start Tamiflu 75 mg b.i.d. p.o. Cultures in progress Patient had mild jump secondary to high-dose IV Solu-Medrol which is being tapered down Patient has worsening of chest x-ray 14 towards possible aspiration Bedside swallow evaluation done which confirmed aspiration DC IV azithromycin secondary to interaction with cardiac meds Added IV Flagyl and doxycycline to IV Rocephin to complete treatment for aspiration pneumonia Keep patient NPO except meds with pureed diet Spoke with the speech pathologist, who will order barium swallow study for the patient Radiologist's report: small right breast mass. Nonemergent diagnostic mammogram and possible ultrasound would be recommended if further evaluation is desired. Refer to PCP for further evaluation and monitor outpatient (3) Aortic valve stenosis, nonrheumatic: ?Code(s): I35.0 - Nonrheumatic aortic (valve) stenosis ?Status:?Acute ?Assessment and Plan: Caution with IV fluids (4) Paroxysmal atrial fibrillation: ?Code(s): I48.0 - Paroxysmal atrial fibrillation and elevated troponin ?Status:?Acute ?Assessment and Plan: Patient is on sotalol Station Mechanic Helper?changes her sotalol dosage to 80 mg q.12.? observe her rhythm with you while she is in the hospital.? Station Mechanic Helper considers she has been deemed not a safe candidate for anticoagulation because of frequent falling as well as a fall associated with the subdural hematoma last summer. Follow-up roof painter recommendation Cardiology evaluated patient for elevated cardiac enzymes ranging from 1.1-1.39 ; cardiology evaluating for nonischemic myocardial injury due to rapid AFib or new coronary event Further management as per roof painter (5) C
[2023-02-28] MEDS: OSELTAMIVIR PHOSPHATE 75 MG CAPSULE PO (20:15)
[2023-02-28] MEDS: methylPREDNISolone SOD SUCC 125 MG VIAL 60 MG IV PUSH (21:30)
[2023-03-01] VITALS (32 sets, daily range): BP systolic 120–171; BP diastolic 61–102; PULSE 75–167; RESP 18–28; TEMP 36.3–37.4; O2SAT 90–100; BMI 21.6
[2023-03-01] MEDS: VANCOMYCIN 1,750 MG/NS 500 ML 1,750 MG/500 ML BAG 250 MG IVPB ×2 (00:29→16:01)
[2023-03-01] MEDS: cefTRIAXone 2 GM/NS 100 ML 2 GM/100 ML BAG IVPB ×2 (00:30→12:26)
[2023-03-01] MEDS: LEVALBUTEROL NEB 1.25 MG/3 ML INHALATION ×4 (02:07→21:49)
[2023-03-01] MEDS: IPRATROPIUM BR 0.02% INH SOLN 0.5 MG/2.5 ML VIAL INHALATION ×4 (02:08→21:49)
[2023-03-01] MEDS: METOPROLOL TARTRATE INJ 5 MG/5 ML VIAL IV PUSH ×3 (03:13→21:34)
[2023-03-01 04:56] LABS: Basophils Absolute Auto 0.1 K/mm3 (0.0-0.1); Basophils Percent Auto 0.5 % (0.2-1.2); Hematocrit 39.1 % (37.0-47.0); Immature Granulocyte Absolute 0.47 K/mm3 (0.00-0.031); Immature Granulocyte Percent A 2.4 % (0-0.5); Lymphocytes Absolute Auto 0.75 K/mm3 (0.9-3.2); Lymphocytes Percent Auto 3.9 % (18.3-44.2); Mean Corpuscular HGB Conc 33.2 g/dl (32-36); Mean Corpuscular Hemoglobin 28.9 pg (26-34); Mean Corpuscular Volume 86.9 fl (80-100); Mean Platelet Volume 11.3 fl (7.4-10.4); Monocytes Percent Auto 5.2 % (2.6-8.5); Neutrophils Absolute Auto 16.9 K/mm3 (1.3-6.7); Nucleated Red Blood Cells Perc 0.2 % (0.0-0.2); Platelet Count Result 307 k/mm3 (150-375); Red Cell Distribution Width 13.5 % (11.5-14.5); White Blood Count 19.2 K/mm3 (4.5-10.0)
[2023-03-01 05:14] LABS: Anion Gap 15 mmol/L (8-16); Blood Urea Nitrogen 28 mg/dL (7-17); Calcium 8.5 mg/dL (8.4-10.2); Carbon Dioxide 27 mmol/L (22-30); Chloride 103 mmol/L (98-107); Estimated CRCL calculation 50 ml/min; Estimated Glomerular Filt Rate > 60; Glucose 250 mg/dL (65-110); Phosphorus 2.6 mg/dL (2.5-4.5); Sodium 145 mmol/L (137-145)
[2023-03-01] MEDS: metroNIDAZOLE 500 MG/ISO 100ML 500 MG/100 ML BAG 100 MG IVPB ×3 (05:21→21:13)
[2023-03-01] MEDS: methylPREDNISolone SOD SUCC 125 MG VIAL 60 MG IV PUSH (05:22)
[2023-03-01] MEDS: DOXYCYCLINE 100 MG/NS 100 ML 100 MG/100 ML BAG IVPB ×2 (09:04→20:30)
[2023-03-01] MEDS: FUROSEMIDE INJ 40 MG/4 ML VIAL IV PUSH ×2 (09:05→17:35)
[2023-03-01] MEDS: POTASSIUM CHLORIDE INJ 40 MEQ in SODIUM CHLORIDE 0.9% IV 500 ML 130 MEQ IVPB (12:25)
--- NOTE | 2023-03-01 12:59 | PCSTNOTE ---
Patient unable to be transported to radiology for modified barium swallow study at scheduled time due to nursing managing her a fib. Radiologist unavailable later this afternoon. Patient will be on list to be evaluated tomorrow.
[2023-03-01 13:47] LABS: Creatinine Urine 22.4 mg/dL
[2023-03-01 13:55] LABS: Creatinine 24 Hour Urine 0.6 gm/24 (0.8-1.8); Total Volume 24 Hour Urine 3000 ml
--- NOTE | 2023-03-01 14:20 | PM.PNCARD ---
Progress Note: A&P Assessment and Plan (1) Paroxysmal atrial fibrillation: Code(s): I48.0 - Paroxysmal atrial fibrillation Status: Acute Assessment and Plan: Patient with a history of paroxysmal atrial fibrillation with exacerbation during this hospitalization resulting in rapid ventricular response, resulting in myocardial ischemia. Sotalol was discontinued, did not respond well to IV Cardizem, has converted to sinus rhythm on IV amiodarone. Previously anticoagulation was discontinued because of frequent falls and subdural hematoma. Fortunately her blood pressures been stable. --continue IV amiodarone --continue IV and p.o. metoprolol (2) Elevated troponin: Code(s): R79.89 - Other specified abnormal findings of blood chemistry Status: Acute Assessment and Plan: Patient has elevated troponin as well as some intermittent ST changes inferiorly and slightly in V1 and V2. Likely does have some underlying CAD aggravated by AFib RVR. Has nonischemic myocardial injury due to rapid AFib. -continue aspirin and simvastatin (3) Acute diastolic CHF (congestive heart failure): Code(s): I50.31 - Acute diastolic (congestive) heart failure Status: Acute Assessment and Plan: Has developed acute diastolic heart failure likely due in part to the AFib RVR and sepsis. --furosemide 40 mg IV push started 02/28, will discontinue tmr, then use prn --echocardiogram to reassess LV function and aortic stenosis, and rule out SBE --daily BMP (4) RML pneumonia: Code(s): J18.9 - Pneumonia, unspecified organism Status: Acute Assessment and Plan: Has pneumonia, positive for influenza A. Getting Tamiflu. --now on nasal cannula so somewhat better. (5) Gram-negative bacteremia: Code(s): R78.81 - Bacteremia Status: Acute Assessment and Plan: Has staph bacteremia, on vancomycin. (6) Hypokalemia: Code(s): E87.6 - Hypokalemia Status: Acute Assessment and Plan: Will supplement. Subjective Date/time seen: 03/01/23 14:20 Interval history: Follow-up for paroxysmal atrial fibrillation with rapid ventricular response. Not anticoagulated due to history of falls and subdural hematoma. Patient was originally admitted with respiratory distress and is being treated for infuenza A pneumonia with antibiotics and BiPAP.. History of old stroke and right hemiparesis, aortic stenosis (mild in 2021), dementia. 02/26/2023: Increased sotalol to 80 mg b.i.d. for PAF Date of service 02/28/2023: Rough evening and night with intermittent AFib RVR. Could not be controlled with IV Cardizem so switched to IV amiodarone and IV plus p.o. metoprolol. EKG through the night showed some changes with slight ST elevation in 3 and AVF worrisome for ischemia/possible infarction. Patient never had a chest pain. Converted back to sinus rhythm this morning. Pt indicates she is not in any pain. Troponins: 1.4, 1.1, ProBNP: 12,000. Resumed aspirin statin, continued IV amiodarone and IV metoprolol. Start IV Lasix for acute CHF. Date of service 03/01/2023: Patient denies complaints, very weak congested cough. Antibiotics addressed, azithromycin discontinued. Grandsons at bedside. Remains on IV ME 0. Now on 8 L O2. Good diuresis. wBCs elevated, potassium low at 3.0. Troponins down to 0.5. Pulmonary recommends NG tube for for aspiration precautions and medication delivery. Telemetry: NSR rate 80s-90s, some PAF with heart rates in the 120s. Review of Systems Review of Systems: Patient indicates that she is not in pain but cannot provide much else with review of systems. ROS was supplied mostly by the patient's nurse and family members. Exam Const: General: cooperative Orientation/consciousness: oriented to person Other: Patient in bed, on O2 nasal cannula skin is warm and dry, non diaphoretic, not tachypneic. Week and congested cough HENMT: Face/
--- NOTE | 2023-03-01 15:30 | PM.PNPUL ---
Progress Note: A&P Assessment and Plan (1) Influenza A: Code(s): J10.1 - Influenza due to other identified influenza virus with other respiratory manifestations Status: Acute Assessment and Plan: 02/26/23: She has influenza with a nasapharyngeal swab and symptoms that match. She started Tamiflu at admission. 02/28/2023: Bedside swallow evaluation with generalized reduced strength, coordination and range of motion. Unable to follow directions. Trial of thin liquids by spoon and cup, mildly thickened liquid by cup, solid by spoon were given in each trial was immediately followed by coughing which is a possible sign of aspiration. Recommend NPO and order modified barium swallow. 03/01: Patient has not reliably been able to receive Tamiflu (1 dose on the , 1 dose on the , 2 doses on the , 1 dose on the and none today) given her inability to take oral pills. Per the family she previously has had difficulty swallowing liquids and aspirates approximately 1 time a week. She was unable to get a modified barium swallow today due to her atrial fibrillation with RVR. Plan: I recommend NG tube so that she can reliable get Tamiflu 75 mg per tube twice a day. I have discontinued Solu-Medrol. She has no history of asthma or COPD per the family. She has had wheezing in the past. She has no wheezing at this time. I will continue levalbuterol and ipratropium nebulizers q.6 hours. Discussed with Drs. Lara and Paresh, will follow with you (2) Gram positive bacterial infection: Code(s): A49.9 - Bacterial infection, unspecified Status: Acute Assessment and Plan: Patient with 2 of 2 blood cultures with oxacillin sensitive Staph aureus on 02/25/2023. Patient with MRSA nasal swab positive on 02/26/2023. 03/01: Patient is afebrile, white blood cell count 19.2 (admission 16.6 and she is also on high-dose steroids). Patient is currently on ceftriaxone from 02/25, day 5, Doxycycline day 2, Flagyl day 2, vancomycin day 3. For healthcare associated pneumonia, possible MRSA pneumonia and aspiration pneumonia. Plan: I will repeat blood cultures today. I will send a procalcitonin tomorrow morning. Patient will have an echocardiogram to assess valves. (3) Acute hypoxic respiratory failure: Code(s): J96.01 - Acute respiratory failure with hypoxia Status: Acute Assessment and Plan: Patient was on no home oxygen previously. Patient required 3 L on 02/26, 5 L on 02/27 and today she was requiring 8 L with saturations 91%. Feb 25 :pH 7.50 pCO2 32.3; PO2 131.4 HC03 25.1 saturation 98.9% on BiPAP 12/ and 50% Feb 25:? pH 7.51 pCO2 34.5 PO2 82.7 HC03 26.9 saturation 97.1% on BiPAP 12/6 and 30% Feb 26: pH 7.43 pCO2 36.8 PO2 56 HC03 24.3 saturation 90.3% on BiPAP / and 30% Patient's last BiPAP use was 02/28 at 4:00 p.m.. Etiology of patient's hypoxemic respiratory failure includes influenza a pneumonia, bacterial pneumonia, and fluid overload. 03/01/23: Plan: Continue treatment for influenza as above. Continue treatment for bacterial pneumonia as above. Cardiology following inpatient on Lasix 40 mg IV b.i.d., amiodarone drip, metoprolol p.o. and IV p.r.n. and amlodipine 10 q.a.m.. Continue nasal cannula oxygen with goal saturation 90-94%. Discussed with POA at the bedside and explained that we are trying to aggressively treat influenza a pneumonia, possible bacterial super infection and cardiac issues. Given her debility, comorbid conditions and her inability to expectorate her own secretions she has a high risk for clinical deterioration. Subjective Date/time seen: 03/01/23 15:30 Interval history: pt was seen Feb 26 at 20:00 NEW: Rosa Angela is an 88-year-old woman who lives in an assisted living residence; admitted February 25 with severe respiratory distress, came to ER; initial CXR = COPD, she was placed on BiPAP;? serology shows Influenza A; she is getting oral Tamiflu, IV
[2023-03-01] MEDS: POTASSIUM CHLORIDE 20 MEQ PACKET (FOR LIQUID) 40 MEQ PO (17:35)
--- NOTE | 2023-03-01 18:04 | PM.IMPN ---
Progress Note: A&P Assessment and Plan (1) Acute hypoxic respiratory failure: Code(s): J96.01 - Acute respiratory failure with hypoxia Status: Acute (2) Paroxysmal atrial fibrillation: Code(s): I48.0 - Paroxysmal atrial fibrillation Status: Acute (3) Community acquired pneumonia: Qualifiers: Laterality: unspecified laterality Qualified Code(s): J18.9 - Pneumonia, unspecified organism Code(s): J18.9 - Pneumonia, unspecified organism Status: Acute (4) CVA (cerebral vascular accident): Code(s): I63.9 - Cerebral infarction, unspecified Status: Acute (5) COPD exacerbation: Code(s): J44.1 - Chronic obstructive pulmonary disease with (acute) exacerbation Status: Acute Plan This is an 88-year-old female with past medical history significant for aortic stenosis, dementia, stroke, dyslipidemia, paroxysmal atrial fibrillation.? Patient lives at assisted living facility was found down in severe respiratory distress and brought to the emergency room.? At the time of my visit patient was on BiPAP.? (1) Acute hypoxic respiratory failure COPD/asthma ?Code(s): J96.01 - Acute respiratory failure with hypoxia ?Status:?Acute ?Assessment and Plan: Currently on continuous BiPAP Continue to monitor Breathing treatments Possible due to not diagnosed COPD or asthma Patient has wheezing bilaterally, some labored breathing Continue Atrovent, add levalbuterol q.6 hours scheduled, and methylprednisolone titrated down to 60 mg q.8 hours IV ... DC's by pulmonary 03/01/2023 Consult hebrew teacher for evaluation and treatment Continue with BiPAP Consider soft restraints and anxiolytics if patient continues to fight with BiPAP (2) RML pneumonia: ?Code(s): J18.9 - Pneumonia, unspecified organism ?Status:?Acute ?Assessment and Plan: CTA: 1. No pulmonary embolus identified, sensitivity limited by respiratory motion. 2. Airspace opacities of the lower lobes and right middle lobe, consistent with pneumonia. Consider followup chest CT in six weeks if symptoms persist after appropriate therapy or if the patient is at high risk for malignancy. Patient started on Rocephin and Zithromax, continue the antibiotics Influenza A positive, start Tamiflu 75 mg b.i.d. p.o. NG tube inserted on pulmonary request to unsure patient received Tamiflu reliably Cultures in progress Patient had mild jump secondary to high-dose IV Solu-Medrol which is being tapered down and stopped Patient has worsening of chest x-ray 14 towards possible aspiration Bedside swallow evaluation done which confirmed aspiration DC IV azithromycin secondary to interaction with cardiac meds Added IV Flagyl and doxycycline to IV Rocephin to complete treatment for aspiration pneumonia Keep patient NPO except meds with pureed diet Spoke with the speech pathologist, who will order barium swallow study for the patient Radiologist's report: small right breast mass. Nonemergent diagnostic mammogram and possible ultrasound would be recommended if further evaluation is desired. Refer to PCP for further evaluation and monitor outpatient (3) Aortic valve stenosis, nonrheumatic: ?Code(s): I35.0 - Nonrheumatic aortic (valve) stenosis ?Status:?Acute ?Assessment and Plan: Caution with IV fluids (4) Paroxysmal atrial fibrillation: ?Code(s): I48.0 - Paroxysmal atrial fibrillation and elevated troponin ?Status:?Acute ?Assessment and Plan: Patient is on sotalol Armhole Baster Hand?changes her sotalol dosage to 80 mg q.12.? observe her rhythm with you while she is in the hospital.? Armhole Baster Hand considers she has been deemed not a safe candidate for anticoagulation because of frequent falling as well as a fall associated with the subdural hematoma last summer. Follow-up marine surveyor recommendation Cardiology evaluated patient for elevated cardiac enzymes ranging from 1.1-1.39 ; cardiology e
[2023-03-01] MEDS: AMIODARONE 360 MG/D5W 200 ML 360 MG/200 ML BAG 16.67 MG IV CONT (21:20)
[2023-03-01] MEDS: OSELTAMIVIR PHOSPHATE 75 MG CAPSULE PO (22:00)
[2023-03-02] VITALS (20 sets, daily range): BP systolic 144–173; BP diastolic 62–97; PULSE 71–164; RESP 18–24; TEMP 36.1–37.2; O2SAT 92–97
[2023-03-02] MEDS: cefTRIAXone 2 GM/NS 100 ML 2 GM/100 ML BAG IVPB ×2 (01:23→12:00)
[2023-03-02] MEDS: VANCOMYCIN 1,750 MG/NS 500 ML 1,750 MG/500 ML BAG 250 MG IVPB ×2 (02:03→14:24)
[2023-03-02] MEDS: IPRATROPIUM BR 0.02% INH SOLN 0.5 MG/2.5 ML VIAL INHALATION ×3 (04:06→14:52)
[2023-03-02] MEDS: LEVALBUTEROL NEB 1.25 MG/3 ML INHALATION ×3 (04:06→14:51)
[2023-03-02] MEDS: METOPROLOL TARTRATE INJ 5 MG/5 ML VIAL IV PUSH ×2 (05:18→09:44)
[2023-03-02] MEDS: metroNIDAZOLE 500 MG/ISO 100ML 500 MG/100 ML BAG 100 MG IVPB ×2 (05:20→14:24)
[2023-03-02 06:31] LABS: Basophils Absolute Auto 0.1 K/mm3 (0.0-0.1); Basophils Percent Auto 0.5 % (0.2-1.2); Hematocrit 39.1 % (37.0-47.0); Hemoglobin 12.4 g/dL (12.0-15.0); Immature Granulocyte Absolute 0.86 K/mm3 (0.00-0.031); Immature Granulocyte Percent A 4.9 % (0-0.5); Lymphocytes Absolute Auto 0.73 K/mm3 (0.9-3.2); Lymphocytes Percent Auto 4.1 % (18.3-44.2); Mean Corpuscular HGB Conc 31.7 g/dl (32-36); Mean Corpuscular Hemoglobin 28.7 pg (26-34); Mean Corpuscular Volume 90.5 fl (80-100); Mean Platelet Volume 11.7 fl (7.4-10.4); Monocytes Absolute Auto 1.1 K/mm3 (0.1-0.6); Monocytes Percent Auto 6.5 % (2.6-8.5); Neutrophils Absolute Auto 14.8 K/mm3 (1.3-6.7); Nucleated Red Blood Cells Absolute Auto 0.1 K/mm3 (0.0-0.012); Nucleated Red Blood Cells Perc 0.6 % (0.0-0.2); Platelet Count Result 279 k/mm3 (150-375); Red Blood Count 4.32 M/mm3 (4.2-5.4); Red Cell Distribution Width 13.9 % (11.5-14.5); White Blood Count 17.6 K/mm3 (4.5-10.0)
[2023-03-02 07:11] LABS: Anion Gap 10 mmol/L (8-16); Blood Urea Nitrogen 29 mg/dL (7-17); Carbon Dioxide 30 mmol/L (22-30); Chloride 107 mmol/L (98-107); Estimated CRCL calculation 52 ml/min; Estimated Glomerular Filt Rate > 60; Glucose 215 mg/dL (65-110); Potassium 2.7 mmol/L (3.4-5.0); Sodium 147 mmol/L (137-145)
[2023-03-02] MEDS: AMIODARONE 360 MG/D5W 200 ML 360 MG/200 ML BAG 16.67 MG IV CONT (07:11)
[2023-03-02 08:33] LABS: Procalcitonin 0.1 ng/mL
--- NOTE | 2023-03-02 08:33 | PCSTNOTE ---
Patient unable to swallow water placed in mouth at bedside. Not appropriate for MBS; will hold order open one more day.
--- NOTE | 2023-03-02 08:35 | PM.PNPUL ---
Progress Note: A&P Assessment and Plan (1) Influenza A: Code(s): J10.1 - Influenza due to other identified influenza virus with other respiratory manifestations Status: Acute Assessment and Plan: 02/26/23: She has influenza with a nasapharyngeal swab and symptoms that match. She started Tamiflu at admission. 02/28/2023: Bedside swallow evaluation with generalized reduced strength, coordination and range of motion. Unable to follow directions. Trial of thin liquids by spoon and cup, mildly thickened liquid by cup, solid by spoon were given in each trial was immediately followed by coughing which is a possible sign of aspiration. Recommend NPO and order modified barium swallow. 03/01: Patient has not reliably been able to receive Tamiflu (1 dose on the , 1 dose on the , 2 doses on the , 1 dose on the and none today) given her inability to take oral pills. Per the family she previously has had difficulty swallowing liquids and aspirates approximately 1 time a week. She was unable to get a modified barium swallow today due to her atrial fibrillation with RVR. Plan: I recommend NG tube so that she can reliable get Tamiflu 75 mg per tube twice a day. I have discontinued Solu-Medrol. She has no history of asthma or COPD per the family. She has had wheezing in the past. She has no wheezing at this time. I will continue levalbuterol and ipratropium nebulizers q.6 hours. 03/02/23: The patient has an NG tube in and she received Tamiflu last night, she is wearing mittens, she is able to follow simple commands but is non communicative. She is afebrile. When I entered the room she was on 7 L nasal cannula saturations 96%. I decreased her to 5 L nasal cannula her saturations were 94%. Few wheezes on end expiration. Plan: Continue Tamiflu 75 mg b.i.d. (she received 6 doses over 5 days due to NPO for aspiration), now has NG tube in since 03/01 8:00 PM. Oxygenation improved. I will increase her levalbuterol and ipratropium nebulizers to q.4 hours. Hospitalist to consider tube feeds. Discussed with Drs. Lara, will follow with you (2) Gram positive bacterial infection: Code(s): A49.9 - Bacterial infection, unspecified Status: Acute Assessment and Plan: Patient with 2 of 2 blood cultures with oxacillin sensitive Staph aureus on 02/25/2023. Patient with MRSA nasal swab positive on 02/26/2023. 03/01: Patient is afebrile, white blood cell count 19.2 (admission 16.6 and she is also on high-dose steroids). Patient is currently on ceftriaxone from 02/25, day 5, Doxycycline day 2, Flagyl day 2, vancomycin day 3. For healthcare associated pneumonia, possible MRSA pneumonia and aspiration pneumonia. Plan: I will repeat blood cultures today. I will send a procalcitonin tomorrow morning. Patient will have an echocardiogram to assess valves. 03/02: Patient is afebrile. White blood cell count 17.6, procalcitonin 0.1 Plan: ceftriaxone day 6, Doxycycline day 3, Flagyl day 3, vancomycin day 4. Echocardiogram later today. (3) Acute hypoxic respiratory failure: Code(s): J96.01 - Acute respiratory failure with hypoxia Status: Acute Assessment and Plan: Patient was on no home oxygen previously. Patient required 3 L on 02/26, 5 L on 02/27 and today she was requiring 8 L with saturations 91%. Feb 25 :pH 7.50 pCO2 32.3; PO2 131.4 HC03 25.1 saturation 98.9% on BiPAP 12/6 and 50% Feb 25:? pH 7.51 pCO2 34.5 PO2 82.7 HC03 26.9 saturation 97.1% on BiPAP 12/6 and 30% Feb 26: pH 7.43 pCO2 36.8 PO2 56 HC03 24.3 saturation 90.3% on BiPAP 12/6 and 30% Patient's last BiPAP use was 02/28 at 4:00 p.m.. Etiology of patient's hypoxemic respiratory failure includes influenza a pneumonia, bacterial pneumonia, and fluid overload. 03/01/23: Patient is on 8 L with saturations 92% Plan: Continue treatment for influenza as above. Continue treatment for bacterial pneumonia as above. Cardiology following i
[2023-03-02] MEDS: ASPIRIN 81 MG CHEWABLE TABLET PO (09:49)
[2023-03-02] MEDS: POTASSIUM CHLORIDE INJ 40 MEQ in SODIUM CHLORIDE 0.9% IV 500 ML 130 MEQ IVPB (09:49)
[2023-03-02] MEDS: amLODIPine BESYLATE 5 MG TABLET 10 MG PO (09:49)
[2023-03-02] MEDS: SIMVASTATIN 20 MG TABLET PO (09:50)
[2023-03-02] MEDS: OSELTAMIVIR PHOSPHATE 75 MG CAPSULE PO (09:50)
[2023-03-02] MEDS: POTASSIUM CHLORIDE 20 MEQ PACKET (FOR LIQUID) 40 MEQ PO ×2 (09:50→14:25)
[2023-03-02] MEDS: DOXYCYCLINE 100 MG/NS 100 ML 100 MG/100 ML BAG IVPB (10:05)
--- NOTE | 2023-03-02 11:41 | PCSTNOTE ---
Patient attempted to stimulate swallow at bedside earlier this morning and patient, though awake, did not close lips around spoon, made no tongue movement, and no swallow was elicited. Therapist returned at 11:30, family present. Offered small amount of ice chip per spoon; patient moved mouth closer to spoon but did not close lips around the spoon, and then again, did not close lips while ice chip was in the mouth. No swallow was triggered. Testing was terminated. Family were instructed that they may dip toothette in water, squeeze excess moisture, and then moisten lips and tongue with toothette. They voiced understanding. Dr. Lara and Isabel, RN, notified of results and recommendations to discontinue the Modified Barium Swallow study order until patient better able to participate. Awaiting physician approval.
[2023-03-02] MEDS: LORazepam INJ (*CRX) 2 MG/ML VIAL 0.5 MG IV PUSH (11:59)
--- NOTE | 2023-03-02 14:04 | PM.PNCARD ---
Progress Note: A&P Assessment and Plan (1) Paroxysmal atrial fibrillation: Code(s): I48.0 - Paroxysmal atrial fibrillation Status: Acute Assessment and Plan: Patient with a history of paroxysmal atrial fibrillation with exacerbation during this hospitalization resulting in rapid ventricular response, resulting in myocardial ischemia. Sotalol was discontinued, did not respond well to IV Cardizem, has converted to sinus rhythm on IV Amiodarone. . Previously anticoagulation was discontinued because of frequent falls and subdural hematoma. Fortunately her blood pressures been stable. --Currently in sinus rhythm, but having intermittent episodes of AFIB with RVR. Will continue Amiodarone drip for now. Continue PO Metoprolol. (2) Elevated troponin: Code(s): R79.89 - Other specified abnormal findings of blood chemistry Status: Acute Assessment and Plan: Patient has elevated troponin as well as some intermittent ST changes inferiorly and slightly in V1 and V2. Likely does have some underlying CAD aggravated by AFib RVR. Has nonischemic myocardial injury due to rapid AFib. -continue aspirin and simvastatin (3) Acute diastolic CHF (congestive heart failure): Code(s): I50.31 - Acute diastolic (congestive) heart failure Status: Acute Assessment and Plan: Has developed acute diastolic heart failure likely due in part to the AFib RVR and sepsis. --Given IV Lasix 02/28, continue with PRN IV Lasix as needed. --echocardiogram to reassess LV function and aortic stenosis, and rule out SBE --daily BMP (4) RML pneumonia: Code(s): J18.9 - Pneumonia, unspecified organism Status: Acute Assessment and Plan: Has pneumonia, positive for influenza A. Getting Tamiflu. --now on nasal cannula so somewhat better. (5) Gram-negative bacteremia: Code(s): R78.81 - Bacteremia Status: Acute Assessment and Plan: Has staph bacteremia, on vancomycin. (6) Hypokalemia: Code(s): E87.6 - Hypokalemia Status: Acute Assessment and Plan: Replace as needed. Subjective Date/time seen: 03/02/23 14:04 Interval history: Follow-up for paroxysmal atrial fibrillation with rapid ventricular response. Not anticoagulated due to history of falls and subdural hematoma. Patient was originally admitted with respiratory distress and is being treated for influenza A pneumonia with antibiotics and BiPAP.. History of old stroke and right hemiparesis, aortic stenosis (mild in 2021), dementia. 02/26/2023: Increased sotalol to 80 mg b.i.d. for PAF Date of service 02/28/2023: Rough evening and night with intermittent AFib RVR. Could not be controlled with IV Cardizem so switched to IV amiodarone and IV plus p.o. metoprolol. EKG through the night showed some changes with slight ST elevation in 3 and AVF worrisome for ischemia/possible infarction. Patient never had a chest pain. Converted back to sinus rhythm this morning. Pt indicates she is not in any pain. Troponins: 1.4, 1.1, ProBNP: 12,000. Resumed aspirin statin, continued IV amiodarone and IV metoprolol. Start IV Lasix for acute CHF. Date of service 03/01/2023: Patient denies complaints, very weak congested cough. Antibiotics addressed, azithromycin discontinued. Grandsons at bedside. Remains on IV ME 0. Now on 8 L O2. Good diuresis. wBCs elevated, potassium low at 3.0. Troponins down to 0.5. Pulmonary recommends NG tube for for aspiration precautions and medication delivery. Telemetry: NSR rate 80s-90s, some PAF with heart rates in the 120s. Date of service 03/02: Family is interested in hospice. Tele shows intermittent sinus rhythm overnight with paroxysmal atrial fibrillation with RVR. Currently in sinus rhythm. Review of Systems Review of Systems: ROS unobtainable: Yes unobtainable due to medical condition and unobtainable due to mental status Exam Const: General: in distress mild Resp:
[2023-03-02] MEDS: MORPHINE SULFATE (*CRX) 2 MG/ML INJ IV PUSH (14:22)
[2023-03-02] MEDS: METOPROLOL TARTRATE 25 MG TABLET PO (14:24)
--- NOTE | 2023-03-02 17:24 | PM.DS ---
DS: Admitting Diagnosis Discharge Date 03/02/2023: Admitting Diagnosis Acute hypoxic respiratory failure Pneumonia Chronic medical issues DS: Discharge Diagnosis Discharge Diagnosis (1) Terminal care: Code(s): Z51.5 - Encounter for palliative care Status: Acute (2) Hypokalemia: Code(s): E87.6 - Hypokalemia Status: Acute (3) Acute diastolic CHF (congestive heart failure): Code(s): I50.31 - Acute diastolic (congestive) heart failure Status: Acute (4) Elevated troponin: Code(s): R79.89 - Other specified abnormal findings of blood chemistry Status: Acute (5) COPD exacerbation: Code(s): J44.1 - Chronic obstructive pulmonary disease with (acute) exacerbation Status: Acute (6) Gram positive bacterial infection: Code(s): A49.9 - Bacterial infection, unspecified Status: Acute (7) Influenza A: Code(s): J10.1 - Influenza due to other identified influenza virus with other respiratory manifestations Status: Acute (8) RML pneumonia: Code(s): J18.9 - Pneumonia, unspecified organism Status: Acute (9) CVA (cerebral vascular accident): Code(s): I63.9 - Cerebral infarction, unspecified Status: Acute (10) Acute hypoxic respiratory failure: Code(s): J96.01 - Acute respiratory failure with hypoxia Status: Acute (11) Paroxysmal atrial fibrillation: Code(s): I48.0 - Paroxysmal atrial fibrillation Status: Acute DS: Summary Hospital Course Reason for hospitalization: Patient brought to the ER for evaluation from assisted living facility with shortness of breath and in severe respiratory distress Hospital Course: H&P: HPI History of Present Illness Date/Time: 02/25/23? 20:11 Chief Complaint: Shortness of breath Narrative: This is an 88-year-old female with past medical history significant for aortic stenosis, dementia, stroke, dyslipidemia, paroxysmal atrial fibrillation.? Patient lives at assisted living facility was found down in severe respiratory distress and brought to the emergency room.? At the time of my visit patient was on BiPAP.? History was obtained from daughter who was at bedside. Portable chest x-ray Comparison: 06/06/2022 Clinical History: Hypoxia Findings:? Probable COPD pattern present. No consolidation or pleural effusion.? Cardiomediastinal silhouette is stable. Bones and soft tissues are unremarkable. ? HOSPITAL COURSE ... Date of Admission - 03/01/2023: This is an 88-year-old female with past medical history significant for aortic stenosis, dementia, stroke, dyslipidemia, paroxysmal atrial fibrillation.? Patient lives at assisted living facility was found down in severe respiratory distress and brought to the emergency room.? At the time of my visit patient was on BiPAP.? (1) Acute hypoxic respiratory failure? COPD/asthma ?Code(s): J96.01 - Acute respiratory failure with hypoxia ?Status:?Acute ?Assessment and Plan: Currently on continuous BiPAP Continue to monitor Breathing treatments Possible due to not diagnosed COPD or asthma Patient has wheezing bilaterally, some labored breathing Continue Atrovent, add levalbuterol q.6 hours scheduled, and methylprednisolone titrated down to 60 mg q.8 hours IV ... DC's by pulmonary 03/01/2023 Consult sock folder for evaluation and treatment Continue with BiPAP Consider soft restraints and anxiolytics if patient continues to fight with BiPAP (2) RML pneumonia: ?Code(s): J18.9 - Pneumonia, unspecified organism ?Status:?Acute ?Assessment and Plan: CTA:?1. No pulmonary embolus identified, sensitivity limited by respiratory motion. 2. Airspace opacities of the lower lobes and right middle lobe, consistent with pneumonia. Consider followup chest CT in six weeks if symptoms persist after appropriate therapy or if the patient is at high risk for malignancy. Patient started on Rocephin and Zithromax, con
== END 2023-03-02 17:31 | disposition hospice, inpatient (51) | DRG 189 ==
LOC: ANHED 09:40 → ANHIMU 15:17 → ANH3MED 02-26 14:16 → ANHIMU 02-26 16:39
PROVIDERS: Internal Medicine; Internal Medicine Cardiovascular Disease; Internal Medicine Critical Care Medicine; Internal Medicine Pulmonary Disease; Student in an Organized Health Care Education/Training Program; Admitting Provider Hospitalist; Emergency Provider Student in an Organized Health Care Education/Training Program; Visit Provider Family Medicine
DX: J96.01 Acute respiratory failure with hypoxia (principal); I50.31 Acute diastolic (congestive) heart failure; J10.08 Influenza due to other identified influenza virus with other specified pneumonia; J15.212 Pneumonia due to Methicillin resistant Staphylococcus aureus; I69.351 Hemiplegia and hemiparesis following cerebral infarction affecting right dominant side; J44.1 Chronic obstructive pulmonary disease with (acute) exacerbation; J44.0 Chronic obstructive pulmonary disease with (acute) lower respiratory infection; I5A Non-ischemic myocardial injury (non-traumatic); R78.81 Bacteremia; B95.62 Methicillin resistant Staphylococcus aureus infection as the cause of diseases classified elsewhere; D64.9 Anemia, unspecified; E87.6 Hypokalemia; E78.2 Mixed hyperlipidemia; F03.90 Unspecified dementia, unspecified severity, without behavioral disturbance, psychotic disturbance, mood disturbance, and anxiety; H91.90 Unspecified hearing loss, unspecified ear; I35.0 Nonrheumatic aortic (valve) stenosis; I48.0 Paroxysmal atrial fibrillation; N63.0 Unspecified lump in unspecified breast; Z66 Do not resuscitate; Z79.82 Long term (current) use of aspirin; Z20.822 Contact with and (suspected) exposure to COVID-19; Z90.710 Acquired absence of both cervix and uterus; Z90.49 Acquired absence of other specified parts of digestive tract; Z98.41 Cataract extraction status, right eye; Z98.42 Cataract extraction status, left eye; Z96.1 Presence of intraocular lens; Z91.81 History of falling
CPT/HCPCS: 36415; 36600; 70450; 70496; 70498; 71045; 71275; 80048; 80053; 80202; 80307; 81050; 82550; 82570; 82805; 82948; 83605; 83735; 83835; 83880; 84100; 84132; 84145; 84484; 85025; 85027; 85380; 87040; 87081; 87147; 87181; 87186; 87637; 92610; 93005; 94002; 94003; 94640; 96365; 96366; 96367; 96372; 96375; 99285; A9270; J0282; J0456; J0696; J1836; J1940; J2060; J2270; J2930; J3370; J3475; J3480; J7040; J7050; J7120; J7512; Q9967

== ENCOUNTER 2023-03-02 17:25 | HOS | payer OTHER, MEDICARE, SELFPAY ==
[2023-03-02] MEDS: HYDROmorphone HCL INJ (*CRX) 1 MG/ML SYR IV PUSH (19:17)
[2023-03-02] MEDS: HYDROmorphone HCL/PF (*CRX) 50 MG in SODIUM CHLORIDE 0.9% IV 95 ML IV CONT (19:22)
[2023-03-02 20:00] VITALS: PULSE 95; RESP 16; O2SAT 90
--- NOTE | 2023-03-02 21:11 | PC.NURSE ---
This patient, Rosa Angela, was transferred to [ [id number]] on 03/02/23 at 2111. Personal belongings sent with patient. Report given to [ Selene RN]. Appropriate documentation sent with patient.
[2023-03-03] VITALS (7 sets, daily range): BP systolic 117–187; BP diastolic 68–114; PULSE 84–102; RESP 8–18; TEMP 35.9–37.4; O2SAT 94–98
[2023-03-03] MEDS: diazePAM INJ (*CRX) 10 MG/2 ML SYRINGE 5 MG IV PUSH (01:53)
[2023-03-03] MEDS: GLYCOPYRROLATE INJ (*SP) 0.2 MG/ML VIAL 0.1 MG IV PUSH (04:57)
[2023-03-03] MEDS: HYDROmorphone HCL INJ (*CRX) 1 MG/ML SYR IV PUSH ×3 (04:57→14:07)
--- NOTE | 2023-03-03 13:02 | PM.IMHP ---
H&P: HPI History of Present Illness Date/Time: 03/03/23 13:02 Chief Complaint: uncontrolled dyspnea Narrative: 88 y/o female was living in [facility] and had intermittent confusion but good appetite with a regular diet. She was incontinent at times and required minimal assistance with ADL's. PPS was 60. Due to respiratory distress, she was sent to [facility] on 02/25/23 and found to have respiratory failure and bilateral pulmonary infiltrated as well as staph aureus bactermia. She had RSV 02/16/23 and influenza A 02/25/2023. In spite of appropriate antibioitc and supportive therapy she failed to improve other than weaning her oxygen from bipap to 5 L. She was restless and constantly moaning and dyspneic despite IV morphine. Her family opted for inpatient hospice service for symptom control. 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, treated with aspirin and Brilinta Dementia Fracture of left shoulder (~2012) History of fall History of stroke Hypertension Migraine Mixed hyperlipidemia Paroxysmal atrial fibrillation Prurigo nodularis Surgical History Surgical History History of bladder suspension procedure History of Agustin fundoplication (~2005) History of sinus surgery History of total hysterectomy with bilateral salpingo-oophorectomy (BSO) Hx of cholecystectomy Status post cataract extraction of both eyes with insertion of intraocular lens (~2013) Family History Family History Father Heart attack Sibling Breast cancer Mother Sepsis Social History Social History (Updated 03/03/23 @ 13:03 by Elier Mcintosh MD) Social History: Lives in [facility] living in [place]. Nu and Hannah are daughters. Code status: DNR. Smoking status: Never smoker Additional smoking assessment comments: Second hand smoke exposure Alcohol intake: never Substance use: never Substance use type: does not use Do You Feel Safe in your Home?: Yes Lack of Transportation: No Lack of Food: Never True Current Housing: I Have Housing Concerned About Future Housing: No Difficulty Paying Gas/Electric Bills: No Difficulty Paying for Meds: No Currently Unemployed: No Education: High School Diploma/GED Difficulty w/ Childcare or Family Care: No Gender identity (if verbalized by the patient): Female Spiritual care concerns: Yes Agree to blood products: Yes Meds Home Medications and Allergies Home Medications Medication Instructions Recorded Confirmed Type aspirin 81 mg chewable tablet 81 mg PO DAILY #100 tabs 03/07/19 03/02/23 Rx cholecalciferol (vitamin D3) 50 50 mcg PO DAILY #30 caps 03/07/19 03/02/23 Rx mcg (2,000 unit) capsule simvastatin 20 mg tablet 20 mg PO HS #30 tabs 03/07/19 03/02/23 Rx albuterol sulfate 90 mcg/actuation 1 inh inhalation Q6H PRN Allergy 02/16/22 03/02/23 History aerosol inhaler Symptoms ascorbate [id number] 1,200 ea PO DAILY 02/16/22 03/02/23 History 1,000 mg oral powder effervescent pakt cetirizine 10 mg tablet 10 mg PO DAILY PRN Diarrhea 02/16/22 03/02/23 History dihydroxyaluminum sodium carb 334 500 mg PO BID PRN reflux 02/16/22 03/02/23 History mg chewable tablet melatonin 10 mg capsule 10 mg PO HS 02/16/22 03/02/23 History melatonin 5 mg tablet 10 mg PO HS sleep 02/16/22 03/02/23 History montelukast 10 mg tablet 10 mg PO HS 02/16/22 03/02/23 History kcxsjupq-[id number] 200 mcg-vit K 100 1 cap PO DAILY 02/16/22 03/02/23 History mcg-lycop 500 [id number] capsule (Daily Multivitamin) sennosides 8.6 mg tablet 8.6 mg PO DAILY Constipation 02/05
--- NOTE | 2023-03-03 14:10 | PC.NURSE ---
Family attempting to place ham inside patients mouth to taste. Educated family on importance of not forcing food into patient mouth and risks involved with doing so. Will continue to educate.
[2023-03-03] MEDS: HYDROmorphone HCL/PF (*CRX) 50 MG in SODIUM CHLORIDE 0.9% IV 95 ML IV CONT (17:31)
[2023-03-04 08:06] VITALS: BP 152/80; PULSE 93; RESP 11; TEMP 36.2; O2SAT 97
[2023-03-04] MEDS: HYDROmorphone HCL INJ (*CRX) 1 MG/ML SYR IV PUSH (17:00)
[2023-03-04] MEDS: GLYCOPYRROLATE INJ (*SP) 0.2 MG/ML VIAL 0.1 MG IV PUSH (17:00)
--- NOTE | 2023-03-04 17:41 | PM.IMPN ---
Progress Note: A&P Assessment and Plan (1) Palliative care encounter: Code(s): Z51.5 - Encounter for palliative care Status: Acute Assessment and Plan: Meets inpatient hospice criteria due to requiring continuous IV hydromorphone for control of symptoms PRN palliative regimen ordered 03/03/2023 discussed care and prognosis with family at bedside (2) Acute diastolic CHF (congestive heart failure): Code(s): I50.31 - Acute diastolic (congestive) heart failure Status: Acute (3) RML pneumonia: Code(s): J18.9 - Pneumonia, unspecified organism Status: Acute (4) COPD exacerbation: Code(s): J44.1 - Chronic obstructive pulmonary disease with (acute) exacerbation Status: Acute (5) Acute hypoxic respiratory failure: Code(s): J96.01 - Acute respiratory failure with hypoxia Status: Acute (6) Aortic valve stenosis, nonrheumatic: Code(s): I35.0 - Nonrheumatic aortic (valve) stenosis Status: Acute (7) Paroxysmal atrial fibrillation: Code(s): I48.0 - Paroxysmal atrial fibrillation Status: Acute (8) History of stroke: Code(s): Z86.73 - Personal history of transient ischemic attack (TIA), and cerebral infarction without residual deficits Status: Acute (9) Community acquired pneumonia: Qualifiers: Laterality: unspecified laterality Qualified Code(s): J18.9 - Pneumonia, unspecified organism Code(s): J18.9 - Pneumonia, unspecified organism Status: Acute (10) Right hemiparesis: Code(s): G81.91 - Hemiplegia, unspecified affecting right dominant side Status: Acute (11) Gram positive bacterial infection: Code(s): A49.9 - Bacterial infection, unspecified Status: Acute (12) Influenza A: Code(s): J10.1 - Influenza due to other identified influenza virus with other respiratory manifestations Status: Acute Subjective Date/time seen: 03/04/23 17:41 Interval history: Remains comfortable with family at bedside. Review of Systems Review of Systems: ROS unobtainable: Yes unobtainable due to medical condition Exam Narrative: Gen: Early female lying in hospital bed with prolonged apneas intermittently and phonation with expiration Neck: No JVD Chest: Coarse breath sounds and crackles throughout her lungs Heart: S1 and S2 did respiratory sounds, soft systolic ejection murmur, regular rate, no audible gallop Abd: Hypoactive bowel sounds, soft, no obvious tenderness, no palpable mass Extr: No edema MS: No gross deformity to visual inspection Neuro: Cranial nerves symmetric to visual inspection Psych: Unresponsive to verbal stimuli and minimally responsive to tactile stimuli Objective Data Vital Signs Vital Signs: Vital Signs - 24 hr 03/03/23 21:48 03/03/23 20:00 03/04/23 08:06 Temperature 99.4 F 97.1 F L Pulse Rate 93 93 93 Respiratory Rate 12 12 11 L Blood Pressure 132/107 H 152/80 H Pulse Oximetry 98 98 97 Oxygen Delivery High Flow Nasal Cannula Oxygen Flow Rate 2 03/04/23 09:15 03/04/23 09:44 Temperature Pulse Rate Respiratory Rate Blood Pressure Pulse Oximetry Oxygen Delivery Nasal Cannula Nasal Cannula Oxygen Flow Rate 2 2 Intake/Output Intake/Output: Intake & Output 03/01/23 03/02/23 03/03/23 03/04/23 23:59 23:59 23:59 23:59 Intake Total 100 Output Total 975 300 Balance -875 -300 Meds/Results Medications: Active Medications Generic Name Dose Route Start Last Admin Trade Name Freq PRN Reason Stop Dose Admin Artificial Tears 1 - 2 drop 03/02/23 18:15 Artificial Tears Ophth Soln 15 Ml Bottle EACH EYE Q12H PRN Dry Eye(s) Bisacodyl 10 mg 03/02/23 18:16 Bisacodyl 10 Mg Suppository RECTAL DAILY PRN Constipation Diazepam 5 mg 03/02/23 18:10 03/03/23 01:53 Diazepam Inj (*Crx) 10 Mg/2 Ml Syringe IV PUSH 5 mg Q4H PRN Administration Pain Glycopy
[2023-03-04 17:56] VITALS: PULSE 90; RESP 12
[2023-03-04] MEDS: HYDROmorphone HCL/PF (*CRX) 50 MG in SODIUM CHLORIDE 0.9% IV 95 ML IV CONT (17:56)
[2023-03-04 22:15] VITALS: BP 133/99; PULSE 93; RESP 22; TEMP 37.8; O2SAT 92
--- NOTE | 2023-03-04 22:23 | PC.NURSE ---
This RN was notified of temperature of 100.0. Pt family did not want any medications, and requested cool wash clothes. cool washcloths applied, blankets removed, and room temperature lowered.
--- NOTE | 2023-03-05 03:24 | PC.NURSE ---
This RN checked on pt throughout the night, and offered repositioning. Will continue to monitor patient and needs from family.
[2023-03-05 08:00] VITALS: O2SAT 74
[2023-03-05] MEDS: HYDROmorphone HCL INJ (*CRX) 1 MG/ML SYR IV PUSH (09:15)
[2023-03-05 09:27] VITALS: BP 112/64; PULSE 127; RESP 24; TEMP 40; O2SAT 74
[2023-03-05] MEDS: HYDROmorphone HCL/PF (*CRX) 50 MG in SODIUM CHLORIDE 0.9% IV 95 ML IV CONT (17:07)
--- NOTE | 2023-03-05 17:30 | PM.IMPN ---
Progress Note: A&P Assessment and Plan (1) Palliative care encounter: Code(s): Z51.5 - Encounter for palliative care Status: Acute Assessment and Plan: Meets inpatient hospice criteria due to requiring continuous IV hydromorphone for control of symptoms PRN palliative regimen ordered 03/03/2023 discussed care and prognosis with family at bedside (2) Acute diastolic CHF (congestive heart failure): Code(s): I50.31 - Acute diastolic (congestive) heart failure Status: Acute (3) RML pneumonia: Code(s): J18.9 - Pneumonia, unspecified organism Status: Acute (4) COPD exacerbation: Code(s): J44.1 - Chronic obstructive pulmonary disease with (acute) exacerbation Status: Acute (5) Acute hypoxic respiratory failure: Code(s): J96.01 - Acute respiratory failure with hypoxia Status: Acute (6) Aortic valve stenosis, nonrheumatic: Code(s): I35.0 - Nonrheumatic aortic (valve) stenosis Status: Acute (7) Paroxysmal atrial fibrillation: Code(s): I48.0 - Paroxysmal atrial fibrillation Status: Acute (8) History of stroke: Code(s): Z86.73 - Personal history of transient ischemic attack (TIA), and cerebral infarction without residual deficits Status: Acute (9) Community acquired pneumonia: Qualifiers: Laterality: unspecified laterality Qualified Code(s): J18.9 - Pneumonia, unspecified organism Code(s): J18.9 - Pneumonia, unspecified organism Status: Acute (10) Right hemiparesis: Code(s): G81.91 - Hemiplegia, unspecified affecting right dominant side Status: Acute (11) Gram positive bacterial infection: Code(s): A49.9 - Bacterial infection, unspecified Status: Acute (12) Influenza A: Code(s): J10.1 - Influenza due to other identified influenza virus with other respiratory manifestations Status: Acute Subjective Date/time seen: 03/05/23 17:30 Interval history: Remains comfortable with family at bedside. Review of Systems Review of Systems: ROS unobtainable: Yes unobtainable due to medical condition Exam Narrative: Gen: Early female lying in hospital bed with prolonged apneas intermittently and phonation with expiration Neck: No JVD Chest: Coarse breath sounds and crackles throughout her lungs Heart: S1 and S2 did respiratory sounds, soft systolic ejection murmur, regular rate, no audible gallop Abd: Hypoactive bowel sounds, soft, no obvious tenderness, no palpable mass Extr: No edema MS: No gross deformity to visual inspection Neuro: Cranial nerves symmetric to visual inspection Psych: Unresponsive to verbal stimuli and minimally responsive to tactile stimuli Objective Data Vital Signs Vital Signs: Vital Signs - 24 hr 03/04/23 17:56 03/04/23 17:56 03/04/23 22:15 Temperature 100.0 F H Pulse Rate 90 90 93 Respiratory Rate 02 16 22 H Blood Pressure 133/99 H Pulse Oximetry 92 Oxygen Delivery Oxygen Flow Rate 03/05/23 09:27 03/05/23 08:00 03/05/23 09:45 Temperature 104 F H Pulse Rate 127 H Respiratory Rate 24 H Blood Pressure 112/64 Pulse Oximetry 74 L 74 L Oxygen Delivery Nasal Cannula Nasal Cannula Oxygen Flow Rate 5 5 Intake/Output Intake/Output: Intake & Output 03/02/23 03/03/23 03/04/23 03/05/23 23:59 23:59 23:59 23:59 Intake Total 100 100 100 Output Total 975 300 750 Balance -617 -200 -343 Meds/Results Medications: Active Medications Generic Name Dose Route Start Last Admin Trade Name Freq PRN Reason Stop Dose Admin Artificial Tears 1 - 2 drop 03/02/23 18:15 Artificial Tears Ophth Soln 15 Ml Bottle EACH EYE Q12H PRN Dry Eye(s) Bisacodyl 10 mg 03/02/23 18:16 Bisacodyl 10 Mg Suppository RECTAL DAILY PRN Constipation Diazepam 5 mg 03/02/23 18:10 03/03/23 01:53 Diazepam Inj (*Crx) 10 Mg/2 Ml Syringe IV PUSH 5 mg Q4H PRN Administra
--- NOTE | 2023-03-06 10:19 | PM.DDS ---
Discharge Summary Date and Time Date of : 03/05/23 Time of : 18:15 Provider Pronounced By: Katalina Snow RN and Angie Espino RN Probable Cause of Probable Cause of : Diastolic CHF due to aortic stenosis Summary Hospital Course: Admitted to inpatient hospice service for symptoms management. Medications titrated to comfort. Mrs. Angela peacefully. Additional Data Confirmation of as documented by pronouncing clinician: Pupillary Reflex, Palpable Pulses, Response to Stimuli, Heart Tones and Breath Sounds Name of Provider Notified: Dr. Elier Mcintosh Time Provider Notified: 18:25 Provider Requests Autopsy: No Family Requests Autopsy: No Bending Press Operator Notified: Yes Date [facility] Notified of : 03/05/23 Time [facility] Notified of : 18:34
== END 2023-03-05 18:15 | disposition expired | DRG 951 ==
LOC: ANHIMU 17:39 → ANH3MEDSUR 21:25
PROVIDERS: Admitting Provider Internal Medicine; Visit Provider Internal Medicine
DX: Z51.5 Encounter for palliative care (principal); I50.31 Acute diastolic (congestive) heart failure; J96.01 Acute respiratory failure with hypoxia; J10.01 Influenza due to other identified influenza virus with the same other identified influenza virus pneumonia; J44.0 Chronic obstructive pulmonary disease with (acute) lower respiratory infection; J44.1 Chronic obstructive pulmonary disease with (acute) exacerbation; I69.351 Hemiplegia and hemiparesis following cerebral infarction affecting right dominant side; R78.81 Bacteremia; B95.61 Methicillin susceptible Staphylococcus aureus infection as the cause of diseases classified elsewhere; B97.4 Respiratory syncytial virus as the cause of diseases classified elsewhere; I35.0 Nonrheumatic aortic (valve) stenosis; I48.0 Paroxysmal atrial fibrillation; F03.90 Unspecified dementia, unspecified severity, without behavioral disturbance, psychotic disturbance, mood disturbance, and anxiety; E78.2 Mixed hyperlipidemia; I11.0 Hypertensive heart disease with heart failure; Z90.49 Acquired absence of other specified parts of digestive tract; Z96.1 Presence of intraocular lens; Z98.42 Cataract extraction status, left eye; Z98.41 Cataract extraction status, right eye; Z90.710 Acquired absence of both cervix and uterus; Z90.722 Acquired absence of ovaries, bilateral
CPT/HCPCS: A9270; J1170; J3360